=== PATIENT | female | born 1930 | race Caucasian/White ===

== ENCOUNTER 2018-02-19 12:16 | Inpatient (IN) ==
[2018-02-19 13:15] LABS: Basophils % 0.2 %; Eosinophils # 0.1 K/mcL (0.0-0.6); Eosinophils % 1.5 %; Hematocrit 31.3 % (35.3-44.9); Hemoglobin 10.1 g/dL (11.5-15.4); Immature Granulocytes % 0.5 % (0-4); Lymphocytes # 1.4 K/mcL (0.6-4.6); Mean Corpuscular HGB Conc 32.3 g/dL (31.6-35.5); Mean Corpuscular Hemoglobin 30.7 pg (28.0-33.3); Mean Corpuscular Volume 95.1 fL (83.0-100.0); Mean Platelet Volume 11.8 fL (9.4-12.4); Monocytes # 0.6 K/mcL (0.0-1.3); Monocytes % 10.5 %; Neutrophils # 3.8 K/mcL (1.6-8.9); Platelet Count 101 K/mcL (140-400); Red Blood Count 3.29 M/mcL (3.82-4.97); Red Cell Distribution Width 13.9 % (11.5-14.5); Segmented Neutrophils % 63.3 %
[2018-02-19] MEDS ORDERED: Ipratropium/Albuterol Neb 3 ML IH ONE (13:25)
--- NOTE | 2018-02-19 13:26 | Emergency Department Note ---
Disposition Clinical Impression: Intertrochanteric fracture of left femur Qualifiers: Encounter type: initial encounter Fracture type: closed Fracture alignment: nondisplaced Qualified Code(s): S72.145A - Nondisplaced intertrochanteric fracture of left femur, initial encounter for closed fracture Disposition: Admitted As Inpatient Condition: Good Referrals: Maria Eugenia English MD [Primary Care Provider] - Forms: ED Satisfaction Letter Fall HPI - General Chief Complaint: ED Fall Stated Complaint: Fall Time Seen by Provider: 02/19/18 12:24 Source: patient Mode of arrival: ambulatory Limitations: no limitations Nursing Notes Reviewed: Yes Vital Signs Reviewed: Yes - History of Present Illness HPI Narrative: Patient presents today for evaluation of left hip pain after fall. Patient states that her legs just went out from under her and that she landed on her butt. She did not hit her head she did not lose consciousness. Patient is very stoic and does not complain of significant amounts pain but her leg is shortened on the left side. High clinical concern for fever fracture. Neurovascularly intact distally except for being unable to lift leg secondary to pain. No other evidence of injury. Patient will undergo further evaluation for injury and preop labs will be ordered secondary to high clinical concern for fracture. - Related Data Home Medications Medication Instructions Recorded Confirmed Aspirin 81 mg PO DAILY 04/23/15 04/23/15 Citalopram [CeleXA] 10 mg PO DAILY 04/23/15 04/23/15 Diazepam [Valium] 5 mg PO BID 04/23/15 04/23/15 Furosemide [Lasix] 20 mg PO DAILY 04/23/15 04/23/15 Simvastatin [Zocor] 20 mg PO HS 04/23/15 04/23/15 Vitamin D3/Folic Acid [Ortho D 04/23/15 04/23/15 3,775 Unit-1 mg Cap] Previous Rx's Medication Instructions Recorded Budesonide/Formoterol 160/4.5 2 puff IH BIDR 30 Days inhaler 05/05/15 [Symbicort] Ipratropium/Albuterol Neb [Duoneb] 3 ml IH [id number] 30 Days inhsol 05/05/15 Levalbuterol [Xopenex] 1 inh IH Q6HR PRN 30 Days 05/05/15 [email or web address] Metoprolol [Lopressor] 12.5 mg PO BID 30 Days tablet 05/05/15 Nicotine Patch [Nicoderm] 14 mg TD DAILY patch.td24 05/05/15 Allergies Allergy/AdvReac Type Severity Reaction Status Date / Time No Known Allergies Allergy Verified 03/09/15 17:47 Review of Systems: As Per HPI Constitutional: Denies: fever, chills Cardiovascular: Denies: chest pain, palpitations, dyspnea on exertion Respiratory: Denies: cough, dyspnea Gastrointestinal: Denies: abdominal pain, nausea, vomiting Musculoskeletal: Reports: other (left hip pain). 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 Decreased range of motion of left leg secondary to pain. mildly shortened. Skin: No rash, normal skin tone Neuro: Alert and Oriented to person, place, but not time. - General Limitations: altered mental status General appearance: alert Course - Reevaluation(s) Reevaluation #1: Pain controlled. Pt in good spirits. Pt and family understand need for ortho eval and admit. - Consultations Consultation #1: Discussed with Ortho, Dr. Nava. Requests dedicated hip films. Pt will likely have surgery tomorrow. Admit to hospitalist. Consultation #2: Discussed with hospitalist. Pt accepted for admission. Vital Signs Temperature 98.2 F 02/19/18 12:19 Pulse Rate 65 02/19/18 12:19 Respiratory Rate 16 02/19/18 12:19 Blood Pressure 152/73 02/19/18 12:19 O2 Sat by Pulse Oximetry 93 02/19/18 12:19 Temperature 98.2 F 02/19/18 12:19 Pulse Rate 70 02/19/18 13:37 Respiratory Rate 16 02/19/18 13:37 Blood Pressure 174/73 02/19/18 13:37 O2 Sat by Pulse Oximetry 95 02/19/18 13:37 Oxygen Delivery Oxygen Delivery Nasal Cannula Fall - Medical Records Medical records reviewed: Yes I reviewed the patient's medical records. - Lab Data Lab results reviewed: Yes I reviewed the patient's lab results. Result diagrams: 02/19/18 12:56 02/19/18 12:56 Lab Results 02/19/18 02/19/18 Range/Units 12:56 12:56 WBC 6.0 (4.3-11.1) K/mcL RBC 3.29 L (3.82-4.97) M/mcL Hgb 10.1 L (11.5-15.4) g/dL Hct 31.3 L (35.3-44.9) % MCV 95.1 (83.0-100.0) fL MCH 30.7 (28.0-33.3) pg MCHC 32.3 (31.6-35.5) g/dL RDW 13.9 (11.5-14.5) % Plt Count 101 L (140-400) K/mcL MPV 11.8 (9.4-12.4) fL Immature Gran % 0.5 (0-4) % Seg Neutrophils % 63.3 % Lymphocytes % 24.0 % Monocytes % 10.5 % Eosinophils % 1.5 % Basophils % 0.2 % Neutrophils # 3.8 (1.6-8.9) K/mcL Lymphocytes # 1.4 (0.6-4.6) K/mcL Monocytes # 0.6 (0.0-1.3) K/mcL Eosinophils # 0.1 (0.0-0.6) K/mcL Basophils # 0.0 (0.0-0.2) K/mcL Sodium 140 (136-145) mEq/L Potassium 3.5 (3.5-5.1) mEq/L Chloride 99 (98-107) mEq/L Carbon Dioxide 35 H (23-29) mEq/L BUN 17 (8-23) mg/dL Creatinine 1.48 H (0.60-1.20) mg/dL Est GFR ( Amer) 40 L (> 60) Est GFR (Non-Af Amer) 33 L (> 60) BUN/Creatinine Ratio 11 (6-26) Glucose 99 (70-105) mg/dL Calculated Osmolality 292 (280-300) Calcium 8.9 (8.6-10.3) mg/dL Troponin I < 0.03 (< 0.04) ng/mL - Radiology Data Radiology results reviewed: Yes I reviewed the patient's radiology results. - EKG Data EKG attestation: Yes I reviewed and interpreted this EKG. EKG results narrative: EKG shows ventricular rate of 67. DE interval 125. QRS 1 180. QTC 409. No specific T waves found concern for junctional rhythm. Previous EKG shows sinus arrhythmia with rate of 133. Unable to compare for signs of ACS secondary to previous elevated rhythm.
[2018-02-19] MEDS ORDERED: *HR* OxyCODONE Immed Rel 5 MG TABLET PO ONE (13:29)
[2018-02-19 13:36] LABS: BUN/Creatinine Ratio 11 (6-26); Blood Urea Nitrogen 17 mg/dL (8-23); Calcium 8.9 mg/dL (8.6-10.3); Carbon Dioxide 35 mEq/L (23-29); Chloride 99 mEq/L (98-107); Glucose 99 mg/dL (70-105); Osmolality,Calculated 292 (280-300); Potassium 3.5 mEq/L (3.5-5.1); Sodium 140 mEq/L (136-145); eGFR For Non-African Americans 33 (> 60)
[2018-02-19 13:38] LABS: Troponin I < 0.03 ng/mL (< 0.04)
[2018-02-19] MEDS ORDERED: Naloxone 0.4 MG/ML INJ IVP PRN (13:47)
[2018-02-19] MEDS ORDERED: Acetaminophen 325 MG TABLET PO PRN (13:47)
--- NOTE | 2018-02-19 13:54 | Internal Med History&Physical ---
Date of Encounter: 02/19/18 Time of Encounter: 13:30 Internal Medicine - H&P: HPI Chief complaint: fall, left hip pain History of present illness: Ms. King is a 87 year old female with past medical history of COPD, hypertension, diastolic heart failure, presented to the ED after an episode of fall. She states that she was walking in her living room and felt like her left leg was giving in. Afterward, she landed on her left hip but did not hit her head or lose consciousness. No prodromal symptoms including chest pain, palpitations, lightheadedness, or blurring of vision. After a fall, she developed intense left hip pain and was unable to get herself up. No recent illnesses, fevers/chills, nausea/vomiting, abdominal pain, change in bowel habits, or dysuria. The ER, she was afebrile and hemodynamically is stable. Pelvic x-ray revealed left intertrochanteric fracture. Lab work is unremarkable except for creatinine of 1.48 (the last recorded creatinine in 2014 was 0.81). She was given Roxicodone and admitted for further management. Past Med Surg Social Fam HX - Past Medical History Attestation: Yes The following information was validated with the patient. Medical history: aortic aneurysm, arthritis, CHF, COPD, CVA, hypertension, other Additional medical history: Left ankle fracture Psychiatric history: anxiety, depression - Past Surgical History Surgical History: carotid endarterectomy Additional surgical history: broken ankle - Social History Smoking Status: Former smoker Smokeless Tobacco Status: No Alcohol use: none Drug use: none - Family History Mother Adopted: No Hx Family Cardiac Disorders: Yes (HTN) Hx Family Respiratory Disorders: No Hx Family Cancer: Yes Hx Family GI Disorders: No Hx Family Endocrine Disorder: No Hx Family Neuromuscular Disorders: No Hx Family Neurologic Disorders: No Hx Family HEENT Disorders: No Hx Family Autoimmune Disorders: No Internal Medicine - H&P: Meds Aspirin 81 mg PO DAILY 04/23/15 [History] Citalopram [CeleXA] 10 mg PO DAILY 04/23/15 [History] Diazepam [Valium] 5 mg PO BID 04/23/15 [History] Furosemide [Lasix] 20 mg PO DAILY 04/23/15 [History] Simvastatin [Zocor] 20 mg PO HS 04/23/15 [History] Vitamin D3/Folic Acid [Ortho D 3,775 Unit-1 mg Cap] 04/23/15 [History] Budesonide/Formoterol 160/4.5 [Symbicort] 2 puff IH BIDR 30 Days inhaler [Rx] Ipratropium/Albuterol Neb [Duoneb] 3 ml IH [id number] 30 Days inhsol 05/05/15 [Rx] Levalbuterol [Xopenex] 1 inh IH Q6HR PRN 30 Days [email or web address] 05/05/15 [Rx] Metoprolol [Lopressor] 12.5 mg PO BID 30 Days tablet 05/05/15 [Rx] Nicotine Patch [Nicoderm] 14 mg TD DAILY patch.td24 05/05/15 [Rx] 3 Allergy/AdvReac Type Severity Reaction Status Date / Time No Known Allergies Allergy Verified 03/09/15 17:47 All Systems PM: A 10-system review of systems was performed and is negative for pertinent findings except as documented above in the HPI. - Constitutional Vitals: Temp Pulse Resp BP Pulse Ox 98.2 F 70 16 174/73 95 02/19/18 12:19 02/19/18 13:37 02/19/18 13:37 02/19/18 13:37 02/19/18 13:37 Exam: General: Alert and oriented HEENT:EOM, pupils equal, round, and reactive. Cardiovascular:Normal S1 & S2, no murmurs or gallops. No JVD. Pulse regular. Lungs:Normal breath sounds, no wheezes or crackles. Abdomen:Soft, non-tender, no rigidity. Extremities:L LE externally rotated, tender on palpation around hip joint. No hematoma. Neurovascularly intact. Neurological:Normal cognition and motor skills. Skin:Normal color, no rash, no lesions. Pulses:Carotid and radial pulses normal +2. Rest of the physical exam is non-contributory Internal Med - H&P Results - Labs CBC & Chem 7: 02/19/18 12:56 02/19/18 12:56 Labs: Short CBC 02/19/18 Range/Units 12:56 WBC 6.0 (4.3-11.1) K/mcL Hgb 10.1 L (11.5-15.4) g/dL Hct 31.3 L (35.3-44.9) % Plt Count 101 L (140-400) K/mcL Neutrophils # 3.8 (1.6-8.9) K/mcL BMP 02/19/18 12:56 Sodium 140 Potassium 3.5 Chloride 99 Carbon Dioxide 35 H BUN 17 Creatinine 1.48 H Glucose 99 Calcium 8.9 Cardiac Enzymes 02/19/18 Range/Units 12:56 Troponin I < 0.03 (< 0.04) ng/mL - Impressions ITS Impressions Chest X-Ray 02/19/18 12:24 IMPRESSION: Limited portable chest x-ray. Possible new nodule of the right lung apex. Follow-up PA and lateral view chest x-ray versus chest CT is recommended. Pulmonary venous congestion without overt edema. D/ / Navarro Corey MD / Navarro Corey MD Interpreting Provider: Navarro Corey MD Head CT 02/19/18 12:24 IMPRESSION: No acute intracranial abnormality. Atrophy and small-vessel disease ischemic changes appropriate for age. D/ / Doris Hinton MD / Doris Hinton MD Interpreting Provider: Doris Hinton MD Pelvis X-Ray 02/19/18 12:24 IMPRESSION: Acute, intertrochanteric fracture of the left hip. D/ / Gurdeep Flores MD / Gurdeep Flores MD Interpreting Provider: Gurdeep Flores MD - Assessment and plan (1) Fracture, intertrochanteric, left femur Current Visit: Yes Status: Acute Assessment and plan: Likely due to a mechanical fall but will await for CT head results Nothing by mouth after midnight, for surgery tomorrow per ortho Qualifiers: Encounter type: initial encounter Fracture type: closed Fracture alignment: nondisplaced Qualified Code(s): S72.145A - Nondisplaced intertrochanteric fracture of left femur, initial encounter for closed fracture (2) CKD (chronic kidney disease) stage 3, GFR 30-59 ml/min Current Visit: Yes Status: Suspected Assessment and plan: Creatinine is 1.48, last recorded creatinine in April 2015 was 0.8 Suspect progression of CKD rather than SINDHU but will keep her on low rate of IVF overnight monitor Cr (3) Heart failure with preserved ejection fraction Current Visit: Yes Status: Acute Assessment and plan: not in decompensation, hold off on lasix in case her Cr elevation is due to SINDHU (4) COPD (chronic obstructive pulmonary disease) Current Visit: No Status: Chronic Assessment and plan: Asymptomatic and stable, resume home meds and inhalers. Qualifiers: COPD type: chronic bronchitis Chronic bronchitis type: unspecified Qualified Code(s): J42 - Unspecified chronic bronchitis (5) DVT prophylaxis Current Visit: No Status: Acute Assessment and plan: Subcutaneous heparin - Time Spent With Patient Total time spent is greater than 50% in coordination of care (as documented) at patient's floor/unit and/or counseling patient:
[2018-02-19] MEDS: traMADol 50 MG TABLET PO PRN ×2 (16:24→23:22)
[2018-02-19] MEDS: 0.9 % Sodium Chloride 1,000 ML IVC SCH (16:25)
--- NOTE | 2018-02-19 16:57 | Orthopedic Consult Note ---
Date of Encounter: 02/19/18 Time of Encounter: 16:53 Assessment and Plan (1) Fracture of left distal radius Current Visit: Yes Status: Acute Non operative management for the left distal radius fracture. Placed in volar splint until followup. No lifting with the left arm or weight bearing through the wrist. Qualifiers: Encounter type: initial encounter Fracture type: closed Fracture morphology: unspecified fracture morphology Qualified Code(s): S52.502A - Unspecified fracture of the lower end of left radius, initial encounter for closed fracture (2) Fracture, intertrochanteric, left femur Current Visit: Yes Status: Acute The diagnosis and treatment recommendations were discussed with the patient and her family. She has a intertrochanteric fracture of the left hip and to allow her opportunity for early mobility with therapy, and for pain control and to decrease the risks associated with immobility, surgical treatment was recommended. After discussing the pros and cons of treatment options including non-operative and operative intervention, the patient's daughter who is POA has consented for left hip cephalomedullary nail to be performed. The risks and benefits of the procedure were fully explained in detail, including but not limited to the risk of infection, neurovascular injury, continued pain or stiffness, failure of surgery, reinjury, or need for additional surgery, DVT, PE , general risks of anesthesia and loss of limb or life. No guarantees were given or implied and all questions were answered. The patient's family understands all the risks and does wish to proceed with written consent. NPO at midnight for surgery. Appreciate medical management from primary team. Qualifiers: Encounter type: initial encounter Fracture type: closed Fracture alignment: nondisplaced Qualified Code(s): S72.145A - Nondisplaced intertrochanteric fracture of left femur, initial encounter for closed fracture History of Present Illness HPI: Ms. King is a 87 year old female with past medical history of COPD, hypertension, diastolic heart failure, presented to the ED fall this AM. She was walking at home and felt her leg give out, then land on her left hip and left wrist. Denies hitting her head or loss of consciousness. No prodromal symptoms including chest pain, palpitations, lightheadedness, or blurring of vision. She was brought to the ED and diagnosed with a left hip intertrochanteric fracture and minimally displaced left distal radius fracture. Orthopedics was consulted for fracture management. Denies CP, SOB, fevers, chills or any recent illnesses. Denies pain other than her left wrist and hip. No numbness or tingling. She has a walker but does not always use it. Past Med Surg Social Fam HX - Past Medical History Medical history: aortic aneurysm, arthritis, CHF, COPD, CVA, hypertension, other Additional medical history: Left ankle fracture Psychiatric history: anxiety, depression - Past Surgical History Surgical History: carotid endarterectomy Additional surgical history: broken ankle - Social History Smoking Status: Former smoker Smokeless Tobacco Status: No Alcohol use: none Drug use: none - Family History Mother Adopted: No Hx Family Cardiac Disorders: Yes (HTN) Hx Family Respiratory Disorders: No Hx Family Cancer: Yes Hx Family GI Disorders: No Hx Family Endocrine Disorder: No Hx Family Neuromuscular Disorders: No Hx Family Neurologic Disorders: No Hx Family HEENT Disorders: No Hx Family Autoimmune Disorders: No Medications and Allergies Aspirin Enteric Coated [Aspirin EC] 81 mg PO DAILY 02/19/18 [History] Citalopram Hydrobromide [Citalopram HBr] 10 mg PO DAILY 02/19/18 [History] Ergocalciferol (VITAMIN D2) [Vitamin D] 800 unit PO BID 02/19/18 [History] Furosemide [Lasix] 20 mg PO DAILY 02/19/18 [History] Lisinopril [Zestril] 20 mg PO DAILY 02/19/18 [History] Simvastatin [Zocor] 20 mg PO HS 02/19/18 [History] Vit A/C/E AC/Znox/Cupric Oxide [Eye Vitamin-Minerals Tablet] 1 tab PO DAILY [History] amLODIPine [Norvasc] 5 mg PO DAILY 02/19/18 [History] diazePAM [Valium] 1 - 2 mg PO DAILY PRN 02/19/18 [History] 3 Allergy/AdvReac Type Severity Reaction Status Date / Time No Known Allergies Allergy Verified 02/19/18 15:50 All Systems Reviewed: The remainder of the systems were reviewed and are negative except as noted in HPI Physical Exam - Constitutional Vitals: Temp Pulse Resp BP Pulse Ox 97.8 F 70 18 132/76 90 02/19/18 15:48 02/19/18 15:48 02/19/18 15:48 02/19/18 15:48 02/19/18 16:36 Exam: Consult Exam: Constitutional -Vitals reviewed -The patient is well developed and well nourished. -Mood is pleasant. -The patient is well groomed. Psychiatric -The patient alert and oriented to person and place. Respiratory: -Respiratory effort normal Abdomen: -Soft abdomen -Non tender -Non distended: Left upper extremity: -No deformities. The overlying skin is intact with overlying ecchymosis. -Tender to palpation over distal radius -No significant pain with passive motion of the shoulder, elbow, able to flex fingers. -Able to make an "OK" sign, cross the index and long fingers, and extend the thumb. -Sensation grossly intact to light touch throughout the median, radial, and ulnar distributions. -Radial pulse is present; Fingers have good capillary refill. Right upper extremity: -No deformities. The overlying skin is intact. No obvious signs of acute trauma. -No tenderness to palpation throughout. -No significant pain with passive motion of the shoulder, elbow, wrist, and fingers within the limits of the bed. -Able to make an "OK" sign, cross the index and long fingers, and extend the thumb. -Sensation grossly intact to light touch throughout the median, radial, and ulnar distributions. -Radial pulse is present; Fingers have good capillary refill. Left lower extremity: -The extremity is shortened and externally rotated. The overlying skin is intact. -There is tenderness in the groin region as well as the proximal lateral thigh. -I did not range the hip due to the known fracture. -No tenderness along the distal thigh, leg, ankle, foot, or toes. -Able to dorsiflex and plantarflex the ankle and toes. -Sensation is grossly intact to light touch throughout the sural, saphenous, superficial peroneal, and deep peroneal distributions. -Toes have good capillary refill. Right lower extremity: -No deformities. The overlying skin is intact. No obvious signs of acute trauma. -No tenderness to palpation throughout. -No pain with passive motion of the hip, knee, ankle, and toes within the limits of the bed. -No pain with axial loading of the thigh. -Able to dorsiflex and plantarflex the ankle and toes. -Sensation is grossly intact to light touch throughout the sural, saphenous, superficial peroneal, and deep peroneal distributions. -Toes have good capillary refill. Results - Labs Result Diagrams: 02/19/18 12:56 02/19/18 12:56 Labs: Abnormal lab results RBC 3.29 M/mcL (3.82-4.97) L 02/19/18 12:56 Hgb 10.1 g/dL (11.5-15.4) L 02/19/18 12:56 Hct 31.3 % (35.3-44.9) L 02/19/18 12:56 Plt Count 101 K/mcL (140-400) L 02/19/18 12:56 Carbon Dioxide 35 mEq/L (23-29) H 02/19/18 12:56 Creatinine 1.48 mg/dL (0.60-1.20) H 02/19/18 12:56 Est GFR ( Amer) 40 (> 60) L 02/19/18 12:56 Est GFR (Non-Af Amer) 33 (> 60) L 02/19/18 12:56 All other labs normal. - Diagnostic results Wrist/Hand x-ray: report reviewed, image reviewed (Minimally displaced transverse left distal radius fracture) Hip x-ray: report reviewed, image reviewed (Displaced left hip intertrochanteric fracture with significant underlying osteopenia) Consult Discharge Plan - Plan Referrals: Maria Eugenia English MD [Primary Care Provider] -
[2018-02-19] MEDS: *HR* Heparin 5,000 UNIT/ML VIAL SQ SCH (17:25)
[2018-02-19] MEDS: *HR* OxyCODONE Immed Rel 5 MG TABLET PO PRN (17:27)
--- NOTE | 2018-02-19 19:28 | Anesthesia Evaluation PreOp ---
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, Other (anxiety) Other Medical History: Renal (elevated creatinine) Anesthesia History: No Prior Anesthetic Complications, Past Anesthesia Alcohol Use: none Drug use: none Medications and Allergies Aspirin Enteric Coated [Aspirin EC] 81 mg PO DAILY 02/19/18 [History] Citalopram Hydrobromide [Citalopram HBr] 10 mg PO DAILY 02/19/18 [History] Ergocalciferol (VITAMIN D2) [Vitamin D] 800 unit PO BID 02/19/18 [History] Furosemide [Lasix] 20 mg PO DAILY 02/19/18 [History] Lisinopril [Zestril] 20 mg PO DAILY 02/19/18 [History] Simvastatin [Zocor] 20 mg PO HS 02/19/18 [History] Vit A/C/E AC/Znox/Cupric Oxide [Eye Vitamin-Minerals Tablet] 1 tab PO DAILY [History] amLODIPine [Norvasc] 5 mg PO DAILY 02/19/18 [History] diazePAM [Valium] 1 - 2 mg PO DAILY PRN 02/19/18 [History] 3 Allergy/AdvReac Type Severity Reaction Status Date / Time No Known Allergies Allergy Verified 02/19/18 15:50 - Meds/Allergy Pre-op Review Medications Reviewed: Yes Allergies Reviewed: Yes Beta Blockers on Current Med List: No Anesthesia Results - Labs 02/19/18 12:56 02/19/18 12:56 - Imaging EKG: pending Additional studies: CT abdomen and pelvis: MPRESSION: 1. Stable infrarenal abdominal aortic aneurysm 5 x 5.1 cm. 2. Cholelithiasis. D/ / 03/11/2017 14:32:33 Manpreet Chambers MD / [facility] Interpreting Provider: Manpreet Chambers MD <Christine Neff - Last Filed: 02/20/18 07:14> Date of Encounter: 02/20/18 Anesthesia Results - Labs 02/20/18 00:32 02/20/18 00:32 Laboratory Results WBC 8.3 K/mcL (4.3-11.1) 02/20/18 00:32 RBC 2.95 M/mcL (3.82-4.97) L 02/20/18 00:32 Hgb 8.7 g/dL (11.5-15.4) L 02/20/18 00:32 Hct 27.9 % (35.3-44.9) L 02/20/18 00:32 MCV 94.6 fL (83.0-100.0) 02/20/18 00:32 MCH 29.5 pg (28.0-33.3) 02/20/18 00:32 MCHC 31.2 g/dL (31.6-35.5) L 02/20/18 00:32 RDW 13.9 % (11.5-14.5) 02/20/18 00:32 Plt Count 97 K/mcL (140-400) L 02/20/18 00:32 MPV 12.5 fL (9.4-12.4) H 02/20/18 00:32 Immature Gran % 0.5 % (0-4) 02/20/18 00:32 Seg Neutrophils % 81.2 % 02/20/18 00:32 Lymphocytes % 9.6 % 02/20/18 00:32 Monocytes % 8.4 % 02/20/18 00:32 Eosinophils % 0.1 % 02/20/18 00:32 Basophils % 0.2 % 02/20/18 00:32 Neutrophils # 6.7 K/mcL (1.6-8.9) 02/20/18 00:32 Lymphocytes # 0.8 K/mcL (0.6-4.6) 02/20/18 00:32 Monocytes # 0.7 K/mcL (0.0-1.3) 02/20/18 00:32 Eosinophils # 0.0 K/mcL (0.0-0.6) 02/20/18 00:32 Basophils # 0.0 K/mcL (0.0-0.2) 02/20/18 00:32 Immature Plt Fraction 12.5 % (1.1-6.1) H 02/20/18 00:32 PT 13.6 Seconds (9.4-12.1) H 02/20/18 00:32 INR 1.2 02/20/18 00:32 Sodium 135 mEq/L (136-145) L 02/20/18 00:32 Potassium 3.8 mEq/L (3.5-5.1) 02/20/18 00:32 Chloride 94 mEq/L (98-107) L 02/20/18 00:32 Carbon Dioxide 31 mEq/L (23-29) H 02/20/18 00:32 BUN 18 mg/dL (8-23) 02/20/18 00:32 Creatinine 1.45 mg/dL (0.60-1.20) H 02/20/18 00:32 Est GFR ( Amer) 41 (> 60) L 02/20/18 00:32 Est GFR (Non-Af Amer) 34 (> 60) L 02/20/18 00:32 BUN/Creatinine Ratio 12 (6-26) 02/20/18 00:32 Glucose 153 mg/dL (70-105) H 02/20/18 00:32 Calculated Osmolality 285 (280-300) 02/20/18 00:32 Calcium 8.5 mg/dL (8.6-10.3) L 02/20/18 00:32 Troponin I < 0.03 ng/mL (< 0.04) 02/19/18 12:56 Impressions Chest X-Ray 02/19/18 12:24 IMPRESSION: Limited portable chest x-ray. Possible new nodule of the right lung apex. Follow-up PA and lateral view chest x-ray versus chest CT is recommended. Pulmonary venous congestion without overt edema. D/ / Navarro Corey MD / Navarro Corey MD Interpreting Provider: Navarro Corey MD Head CT 02/19/18 12:24 IMPRESSION: No acute intracranial abnormality. Atrophy and small-vessel disease ischemic changes appropriate for age. D/ / Doris Hinton MD / Doris Hinton MD Interpreting Provider: Doris Hinton MD Pelvis X-Ray 02/19/18 12:24 IMPRESSION: Acute, intertrochanteric fracture of the left hip. D/ / Gurdeep Flores MD / Gurdeep Flores MD Interpreting Provider: Gurdeep Flores MD Wrist X-Ray 02/19/18 13:26 IMPRESSION: Acute fracture of the distal radius. D/ / Navarro Corey MD / Navarro Corey MD Interpreting Provider: Navarro Corey MD Hip X-Ray 02/19/18 13:38 IMPRESSION: Acute mildly displaced left intertrochanteric femoral fracture. D/ / Mathew Burgess MD / Mathew Burgess MD Interpreting Provider: Mathew Burgess MD Anesthesia Exam Vital Signs Temp Pulse Resp BP Pulse Ox 02/20/18 06:42 98.4 F 83 17 134/79 94 02/20/18 03:31 98.5 F 100 20 163/63 86 02/19/18 23:17 98.9 F 90 17 146/65 91 02/19/18 19:58 98.3 F 82 16 135/73 95 02/19/18 16:36 90 02/19/18 15:48 97.8 F 70 18 132/76 90 02/19/18 14:20 16 148/82 02/19/18 13:50 18 95 02/19/18 13:37 70 16 174/73 95 02/19/18 12:19 98.2 F 65 16 152/73 93 Intake and Output 02/19/18 02/19/18 02/20/18 15:59 23:59 07:59 Intake Total 1000 / 1000 Output Total 350 / 350 300 / 300 Balance -350 / -350 700 / 700 Intake: IV Fluids 1000 / 1000 0.9 % Sodium Chloride 1,000 ML 1000 / 1000 @ 75 mls/hr IVC .[id number] DANIS Rx #:[id number] Output: Catheter 350 / 350 300 / 300 Other: Meal Dinner Percent of Meal Consumed 60% Weight 76.657 kg 75.8 kg Patient Weight 02/20/18 23:59 Weight 75.8 kg Height: 5'4" Weight: 167# BMI = 28.7 NPO (# of Hours): MNoc Pain Scale Used: Numeric (1 - 10) - HEENT Pupil (Motor): Pupils equal, EOMI Mallampati: II Teeth: Edentulous Oral Opening: Greater than 3 - 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 Oscar Grover MD
[2018-02-20 01:27] LABS: Calcium 8.5 mg/dL (8.6-10.3); Potassium 3.8 mEq/L (3.5-5.1)
[2018-02-20 01:41] LABS: Monocytes % 8.4 %; Red Blood Count 2.95 M/mcL (3.82-4.97)
[2018-02-20 01:43] LABS: Basophils % 0.2 %; Eosinophils % 0.1 %; Hematocrit 27.9 % (35.3-44.9); Hemoglobin 8.7 g/dL (11.5-15.4); Immature Granulocytes % 0.5 % (0-4); Immature Platelets 12.5 % (1.1-6.1); Lymphocytes # 0.8 K/mcL (0.6-4.6); Lymphocytes % 9.6 %; Mean Corpuscular HGB Conc 31.2 g/dL (31.6-35.5); Mean Corpuscular Hemoglobin 29.5 pg (28.0-33.3); Mean Corpuscular Volume 94.6 fL (83.0-100.0); Mean Platelet Volume 12.5 fL (9.4-12.4); Monocytes # 0.7 K/mcL (0.0-1.3); Neutrophils # 6.7 K/mcL (1.6-8.9); Red Cell Distribution Width 13.9 % (11.5-14.5); Segmented Neutrophils % 81.2 %
[2018-02-20 01:53] LABS: INR 1.2; Prothrombin Time 13.6 Seconds (9.4-12.1)
[2018-02-20 02:01] LABS: Platelet Count 97 K/mcL (140-400)
[2018-02-20] MEDS: *HR* OxyCODONE Immed Rel 5 MG TABLET PO PRN (03:48)
[2018-02-20] MEDS: *HR* Heparin 5,000 UNIT/ML VIAL SQ SCH ×2 (05:52→18:47)
[2018-02-20] MEDS: 0.9 % Sodium Chloride 1,000 ML IVC SCH (06:32)
[2018-02-20] MEDS ORDERED: Albuterol 2.5 MG/3 ML NEBULIZER ONE (07:36)
[2018-02-20] MEDS ORDERED: Dexamethasone 4 MG/ML VIAL ONE (07:41)
[2018-02-20] MEDS ORDERED: Lidocaine -MPF 2% 2 ML VIAL ONE (07:41)
[2018-02-20] MEDS ORDERED: Ondansetron 4 MG/2 ML VIAL ONE (07:41)
[2018-02-20] MEDS ORDERED: *HR* Succinylcholine 200 MG/10 ML VIAL IVP ONE (07:41)
[2018-02-20] MEDS ORDERED: Lidocaine -MPF 4% 5 ML AMPUL ONE (07:42)
[2018-02-20] MEDS ORDERED: *HR* FentaNYL (PF) 100 MCG/2 ML VIAL ONE (07:42)
[2018-02-20] MEDS ORDERED: *HR* Propofol 200 MG/20 ML VIAL IVP ONE (07:42)
[2018-02-20] MEDS ORDERED: *HR* Morphine Sulfate/PF 10 MG/10 ML AMPUL ONE (07:43)
[2018-02-20] MEDS ORDERED: Lidocaine -MPF 1% 5 ML AMPUL ONE (07:43)
[2018-02-20] MEDS ORDERED: Ketamine *HR* 500 MG/10 ML MDV ONE (07:48)
[2018-02-20] MEDS ORDERED: *HR* PHENYLEPHRINE 1,000 MCG/10 ML SYRINGE IVP ONE ×2 (07:49→08:52)
[2018-02-20] MEDS ORDERED: Propofol 500 MG/50 ML INFUS..BTL ONE (08:36)
[2018-02-20] MEDS ORDERED: Acetaminophen IV 1,000 MG/100 ML INFUS..BTL ONE (08:56)
--- NOTE | 2018-02-20 09:43 | Anesthesia Procedures ---
Date of Encounter: 02/20/18 Time of Encounter: 08:05 Procedures: Anesthesia - Epidural/Spinal Patient ID/Chart reviewed: Yes Patient examined: Yes Consent Obtained: Yes Supplemental Oxygen: Nasal Cannula Supplemental Oxygen Rate (L/min): 3 Sedation: Versed (mg): 0 (30mg ketamine in 3 doses) Site Prep: Aseptic Technique, Sterile prep and drape, 0.5% Chlorhexidine/Alcohol Patient position: right lateral decubitus Local Anesthetic: Lidocaine 1% Amount of Local Anesthetic used: 3 Interspace Used: L3-L4 Loss of Resistance (JUNI): No Blood: No CSF: Yes Paresthesia: No Procedure: vss though out procedure, 2 level attempts to clear CSF per Gaston CHOI and Dr. Neff, patient tolerated well, meds inj 0.5% 2ml and 250mcg of duramorph all PF.
--- NOTE | 2018-02-20 09:44 | Physician Discharge Referral ---
- Diagnosis (1) Fracture of left distal radius Status: Acute (2) Fracture, intertrochanteric, left femur Status: Acute Prognosis: Fair - Transfer Medications Home Medications: Aspirin Enteric Coated [Aspirin EC] 81 mg PO DAILY 02/19/18 [History] Citalopram Hydrobromide [Citalopram HBr] 10 mg PO DAILY 02/19/18 [History] Ergocalciferol (VITAMIN D2) [Vitamin D] 800 unit PO BID 02/19/18 [History] Furosemide [Lasix] 20 mg PO DAILY 02/19/18 [History] Lisinopril [Zestril] 20 mg PO DAILY 02/19/18 [History] Simvastatin [Zocor] 20 mg PO HS 02/19/18 [History] Vit A/C/E AC/Znox/Cupric Oxide [Eye Vitamin-Minerals Tablet] 1 tab PO DAILY [History] amLODIPine [Norvasc] 5 mg PO DAILY 02/19/18 [History] diazePAM [Valium] 1 - 2 mg PO DAILY PRN 02/19/18 [History] Allergies/Adverse Reactions: 3 Allergy/AdvReac Type Severity Reaction Status Date / Time No Known Allergies Allergy Verified 02/19/18 15:50 - Respiratory Orders Smoking Cessation: Smoking cessation has been advised. For more information, call the [employer] Tobacco Quit Line at 2-046-MWRG-NOW. - Mobility Orders Ambulate - Rehabiliation Orders Rehab Potential: Fair Rehab Orders: Evaluation for Physical Therapy, Evaluation for Occupational Therapy Other: JAIL DISCHARGE INSTRUCTIONS Dr. Nava PROCEDURE PERFORMED Reduction and fixation of left hip. Incision care -Keep clear dressing in place. If dressing becomes saturated, may perform daily dressing changes to the left hip with dry gauze and either paper tape or medipore tape. -Avoid soaking wound in water (no hot tubs, bathtubs, swimming pools). -May shower after 2 weeks from surgery date. Carefully wash incision with soap and water. Gently pat it dry. Don't rub the incision, or apply creams or lotions. Sit on a shower stool when showering to keep from falling. Weight bearing status -Weightbearing as tolerated to the bilateral lower extremities. Non weight bearing through the left wrist due ot distal radius fracture. May weight bear through the elbow. Medications -Pain medication per the discharging medical doctor -Enteric coated aspirin 325 mg by mouth twice per day for 28 days from the date of the surgery. [-Resume 50,000 units of vitamin D2 weekly and 1200 mg of calcium supplementation per day.] Other -Knee high TERESA hose 23 hours per day -Consult physical and occupational therapy for mobilization. -Up to chair with assistance at least twice per day. -Follow up with your primary care physician to discuss testing for bone mineral density. Follow-Up -Follow-up with Dr. Nava in office in 2 weeks from the surgery date for a post-operative evaluation. -Call the office at [phone] to schedule or confirm your appointment. -Follow up with your primary care physician to discuss testing for bone mineral density. - Diet Orders Regular CERTIFICATION: I certify that the transfer of the above named patient to an Extended Care Facility is necessary for the continuing treatment of the diagnosis listed. The above information is true and accurate reflection of patient's current condition. Confidential - Redisclosure prohibited without a patient's written consent.
--- NOTE | 2018-02-20 09:50 | Orthopedic Operative Note ---
Date of procedure: 02/20/18 Procedure: Procedure: Left hip cephalomedullary nail Preoperative diagnosis: Left hip intertrochanteric fracture Postoperative diagnosis: Same Surgeon: Jason Nava MD Anesthesia: General EBL: 50 cc Complications: None Components used: Synthes TFNA 12mm/130 degree short nail, 95 mm helical blade, 5.0 mm locking screw Indications: This is an 87 yo female who sustained a fall yesterday at home onto her left side, causing her left hip and wrist pain. She was brought to the emergency department and imaging confirmed a left hip intertrochanteric fracture and a minimally displaced left distal radius fracture. After discussing the procedure at length, the patient and her family elected for operative management with a cephalomedullary nail of the left hip and nonoperative management of the left distal radius. The risks and benefits the procedure were fully explained. Those risks included but are not limited to, infection, neurovascular injury, continued pain, arthritis, stiffness, further injury, need for further surgery, DVT, PE, loss of limb, and loss of life. Patient understood all these risks and wished to proceed. Informed consent was obtained. No guarantees were stated or implied. Operative report: The patient was assessed and cleared by the medical group prior to surgery. Patient was brought to the holding area. Spinal anesthetic was administered per anesthesia. Left lower extremity was marked, the patient was taken to the operating room and transferred to the hospital bed. The patient's head, neck and airway were protected by anesthesia throughout the case. The patient was then transferred to the fracture table and placed in supine position with a well padded perineal post. All bony prominences were well-padded. The left wrist had been splinted and care was taken to protect it when positioning the left arm. Left leg was attached to traction device and the fracture bed. The right leg was then placed in a well leg snider and positioned out of the way of fluoroscopy. We then utilized fracture table to reduce the fracture and obtained fluoroscopic images in AP and lateral planes confirming alignment. The left lower extremity was then prepped and draped in the normal sterile orthopedic fashion. Preoperative antibiotics were given prior to incision. A surgical time out protocol was then performed. We then made an incision just proximal to the greater trochanter. We dissected down through the IT band sharply. We were then able to palpate the greater trochanter and we placed a guidepin in the appropriate starting position on the greater trochanter. We advanced the guidepin into the proximal femur and then confirmed the position in both AP and lateral planes. After confirming acceptable pin placement at the tip of the greater trochanter, we advanced the pin to the level of the lesser trochanter. We then utilized an entry reamer over the pin to open up the canal. We then placed a size 12 mm 130 degree Synthes TFNA short nail over the guide pin. We manually advanced the nail to the appropriate depth taking care to avoid any further injury to the bone. When the nail was at the appropriate depth we used the outrigger to place a guidepin for the compression blade into the femoral head. We confirmed central location on the pin on both AP and lateral x-rays. We then overdrilled the pin and placed the 95 mm blade. We then locked the nail proximally and utilized the outrigger for compression across the fracture site. After confirming acceptable alignment of the fracture, we then used the outrigger to place a distal locking screw from lateral to medial. At this point we obtained final fluoroscopic images of the left hip and femur in both AP and lateral planes. We then thoroughly irrigated the wounds and closed the IT band with 0 Vicryl. Subcutaneous tissue was closed with 2-0 strata fix, skin was closed with 3-0 strata fix and then zip line. Sterile dressing was placed, the patient was woken by anesthesia and taken transferred to PACU in stable condition. Patient tolerated procedure well with no issues. Postop plan: Patient will be transferred back to the floor and will be weight- bearing as tolerated of bilateral lower extremities with physical therapy postoperatively. She is nonweight bearing through the left wrist due to the distal radius fracture. Patient is on subq heparin for DVT prophylaxis and will continue this per the hospitalist group. Was there an assistant director of public works present: No Estimated blood loss (cc): 50
--- NOTE | 2018-02-20 10:26 | Anesthesia Evaluation Post Op ---
Date of Encounter: 02/20/18 Time of Encounter: 10:22 - Vital Signs Vital Signs: Vital Signs/O2 Sat/Glucose, Most Current Temp Pulse Resp BP Pulse Ox 02/20/18 10:11 100.1 F H 67 16 96/54 96 02/20/18 10:01 100.1 F H 69 16 95/55 96 02/20/18 09:51 71 16 108/78 93 02/20/18 09:41 69 18 119/93 95 02/20/18 09:31 100.2 F H 82 18 122/60 89 02/20/18 07:59 93 138/65 93 02/20/18 06:42 98.4 F 83 17 134/79 94 - Lungs Lungs: Clear Ascult./Percussion - Airway Airway: Non-obstructed - Cardiovascular Regular Rate - Mental Status Mental Status: Alert & Oriented, Answers Appropriately - Pain Pain Scale: 0 Pain Scale used: Numeric (1 - 10) - Nausea Vomiting Nausea Vomiting: Not Present - Hydration Hydration: Tolerates oral liquids, Milner catheter - Discharge PostOp Status: Transfer Patient to floor Anes Supervising Prov Stmt: PT seen/evaluated, VSS And pt has met criteria for discharge to floor. - MD Lenore
[2018-02-20] MEDS ORDERED: Naloxone 0.4 MG/ML INJ IVP PRN ×2 (10:29)
[2018-02-20] MEDS ORDERED: 0.9 % Sodium Chloride 1,000 ML IVC SCH (10:29)
[2018-02-20] MEDS ORDERED: Acetaminophen 325 MG TABLET PO PRN (10:29)
--- NOTE | 2018-02-20 16:39 | Internal Med Progress Note ---
Date of Encounter: 02/20/18 Time of Encounter: 16:25 - Assessment and plan (1) Fracture, intertrochanteric, left femur Current Visit: Yes Status: Acute Assessment and plan: Status post left hip cephalomedullary nail procedure POD#0 -Continue orthopedic care -Physical therapy -Analgesia -Incentive spirometer Also with distal left radial fracture -In volar splint -orthopedic care -Nonoperative management Qualifiers: Encounter type: initial encounter Fracture type: closed Fracture alignment: nondisplaced Qualified Code(s): S72.145A - Nondisplaced intertrochanteric fracture of left femur, initial encounter for closed fracture (2) CKD (chronic kidney disease) stage 3, GFR 30-59 ml/min Current Visit: Yes Status: Suspected Assessment and plan: Acute kidney injury stage III chronic kidney disease -Could be due to progression of chronic kidney disease versus likely an intravascular volume depletion 2/2 decreased PO intake (per family) with the addition of frequent NSAID Lasix and MOISÉS inhibitor use. -discontinue Lasix -discontinue zestril -Continue IV fluids (last EF 60-65%) -AM BMP (3) COPD (chronic obstructive pulmonary disease) Current Visit: No Status: Chronic Assessment and plan: -Continue home medications -Stable Qualifiers: COPD type: chronic bronchitis Chronic bronchitis type: unspecified Qualified Code(s): J42 - Unspecified chronic bronchitis (4) DVT prophylaxis Current Visit: No Status: Acute Assessment and plan: Subcutaneous heparin (5) Heart failure with preserved ejection fraction Current Visit: Yes Status: Acute Assessment and plan: Chronic compensated congestive heart failure with preserved ejection fraction/ diastolic dysfunction -We will monitor for now -discontinue Lasix secondary to kidney injury (6) Thrombocytopenia Current Visit: Yes Status: Acute Assessment and plan: Chronic stable thrombocythemia will monitor- - Time Spent With Patient Total time spent is greater than 50% in coordination of care (as documented) at patient's floor/unit and/or counseling patient: 25 - 35 minutes - Subjective Interval history: Patient seen and examined at bedside with family. Patient had no acute events overnight. Patient doing well today post surgery. Patient denies any complaints. Patient denies any chest pain, shortness breath, nausea, vomiting, diarrhea. Patient is afebrile. - Constitutional Vitals: Temp Pulse Resp BP Pulse Ox 98.3 F 62 17 105/60 89 02/20/18 15:53 07/28/18 15:53 02/20/18 15:53 02/20/18 15:53 02/20/18 15:53 Exam: Constitutional: No acute distress, Alert Psych: AAO x 3 Neck: supple, no JVD Cardio: regular rate and rhythm, +s1s2, no murmurs/rubs/gallops Resp: clear to ascultation bilaterally, no wheezes/rales/ronchi Abd: soft, non tender/non distended, positive bowel sounds, no gaurding/reboud/ ridgitity Extremities: Left hip incision clean dry and intact, calfs soft, left wrist wrapped in Moisés bandage Neuro: no focal deficits appreciated Lymph: no cervical/supraclavicular adenopahty apprecitated Internal Medicine: Result - Labs CBC & Chem 7: 02/20/18 00:32 02/20/18 00:32 Labs: Short CBC 02/20/18 Range/Units 00:32 WBC 8.3 (4.3-11.1) K/mcL Hgb 8.7 L (11.5-15.4) g/dL Hct 27.9 L (35.3-44.9) % Plt Count 97 L (140-400) K/mcL Neutrophils # 6.7 (1.6-8.9) K/mcL BMP 02/20/18 00:32 Sodium 135 L Potassium 3.8 Chloride 94 L Carbon Dioxide 31 H BUN 18 Creatinine 1.45 H Glucose 153 H Calcium 8.5 L - ABG Interpretation ABG results: PT/INR, D-dimer PT 13.6 Seconds (9.4-12.1) H 02/20/18 00:32 - Impressions Impressions Fluoroscopy 02/20/18 00:00 IMPRESSION: Intraprocedural fluoroscopic spot images as above. See separate procedure report for more information. D/ / Navarro Bullock MD / Navarro Bullock MD Interpreting Provider: Navarro Bullock MD Hip X-Ray 02/20/18 09:34 IMPRESSION: Postoperative left hip internal fixation with improved alignment of fracture fragments. D/ / 02/20/2018 11:20:03 Rd Stiles MD / [facility]yl[facility] Interpreting Provider: Rd Stiles MD - VTE Documentation of Mechanical Device: Intermittent pneumatic compression device Consult Discharge Plan - Plan Referrals: Maria Eugenia English MD [Primary Care Provider] -
[2018-02-21] MEDS: *HR* Heparin 5,000 UNIT/ML VIAL SQ SCH ×2 (05:23→16:59)
[2018-02-21 05:51] LABS: Basophils % 0.1 %; Eosinophils % 0.7 %; Hemoglobin 8.2 g/dL (11.5-15.4)
[2018-02-21 05:52] LABS: Eosinophils # 0.1 K/mcL (0.0-0.6); Hematocrit 25.6 % (35.3-44.9); Immature Granulocytes % 0.7 % (0-4); Lymphocytes # 0.9 K/mcL (0.6-4.6); Lymphocytes % 8.8 %; Mean Corpuscular Hemoglobin 30.9 pg (28.0-33.3); Mean Corpuscular Volume 96.6 fL (83.0-100.0); Monocytes % 9.6 %; Red Blood Count 2.65 M/mcL (3.82-4.97); Red Cell Distribution Width 14.3 % (11.5-14.5); Segmented Neutrophils % 80.1 %
[2018-02-21 05:56] LABS: Platelet Count 77 K/mcL (140-400)
[2018-02-21 06:09] LABS: Calcium 8.1 mg/dL (8.6-10.3); Potassium 3.8 mEq/L (3.5-5.1)
[2018-02-21] MEDS ORDERED: Furosemide 20 MG TABLET PO SCH (09:00)
[2018-02-21] MEDS ORDERED: Lisinopril 20 MG TABLET PO SCH (09:00)
--- NOTE | 2018-02-21 09:39 | Orthopedics Progress Note ---
Date of Encounter: 02/21/18 Time of Encounter: 09:36 - Assessment and Plan (1) Fracture of left distal radius Current Visit: Yes Status: Acute Qualifiers: Encounter type: initial encounter Fracture type: closed Fracture morphology: unspecified fracture morphology Qualified Code(s): S52.502A - Unspecified fracture of the lower end of left radius, initial encounter for closed fracture (2) Fracture, intertrochanteric, left femur Current Visit: Yes Status: Acute Qualifiers: Encounter type: initial encounter Fracture type: closed Fracture alignment: nondisplaced Qualified Code(s): S72.145A - Nondisplaced intertrochanteric fracture of left femur, initial encounter for closed fracture Subjective Interval history: Doing fine POD#1 s/p L hip CMN. Pain is tolerable. No N/V. No CP/SOB. No fevers or chills. AFVSS Hg 8.2 GEN: NAD, AAOx3 LLE: Dressing c/d/i No drainage or erythema DNVI +EHL/PF/DF, SILT s/s/t/sp/dp BCR over toes POD#1 s/p L hip CMN, also with L distal radius fracture -WBAT LLE, NWB through L wrist -Ambulate with PT as able -PO pain control -Discharge planning - will need rehab Objective Vital signs: Vital Signs Temp Pulse Resp BP Pulse Ox 02/21/18 06:26 99.5 F 121 16 125/68 90 02/21/18 03:27 99.7 F H 85 18 122/69 90 02/21/18 00:11 98.6 F 93 15 139/81 92 02/20/18 21:51 90 02/20/18 19:04 98.1 F 71 18 99/64 90 02/20/18 15:53 98.3 F 62 17 105/60 89 02/20/18 13:43 98.7 F 77 18 92/53 02/20/18 12:37 97.9 F 86 18 94/54 85 02/20/18 11:31 97.4 F L 86 16 91/54 89 02/20/18 11:17 91 02/20/18 11:00 98.3 F 80 18 91 02/20/18 10:30 98.4 F 69 16 104/57 89 02/20/18 10:11 100.1 F H 67 16 96/54 96 02/20/18 10:01 100.1 F H 69 16 95/55 96 02/20/18 09:51 71 16 108/78 93 02/20/18 09:41 69 18 119/93 95 Intake and Output 02/20/18 02/21/18 02/21/18 23:59 07:59 15:59 Intake Total 340 / 340 1000 / 1000 Output Total 75 / 75 500 / 500 Balance 265 / 265 500 / 500 Intake: IV Fluids 100 / 100 1000 / 1000 Ancef 2,000 MG In 0.9 % Sodium 100 / 100 Chloride 100 ML @ 200 mls/hr IVPB Q8HR DANIS Rx#:[id number] Oral 240 / 240 Output: Catheter 75 / 75 500 / 500 Other: Meal Dinner Percent of Meal Consumed 30% Weight 79.6 kg Patient Weight 02/21/18 23:59 Weight 79.6 kg - Labs CBC & BMP: 02/21/18 05:14 02/21/18 05:14 Labs: Abnormal lab results RBC 2.65 M/mcL (3.82-4.97) L 02/21/18 05:14 Hgb 8.2 g/dL (11.5-15.4) L 02/21/18 05:14 Hct 25.6 % (35.3-44.9) L 02/21/18 05:14 Plt Count 77 K/mcL (140-400) L 02/21/18 05:14 MPV 13.0 fL (9.4-12.4) H 02/21/18 05:14 Immature Plt Fraction 13.0 % (1.1-6.1) H 02/21/18 05:14 PT 13.6 Seconds (9.4-12.1) H 02/20/18 00:32 Carbon Dioxide 30 mEq/L (23-29) H 02/21/18 05:14 BUN 26 mg/dL (8-23) H 02/21/18 05:14 Creatinine 1.85 mg/dL (0.60-1.20) H 02/21/18 05:14 Est GFR ( Amer) 31 (> 60) L 02/21/18 05:14 Est GFR (Non-Af Amer) 26 (> 60) L 02/21/18 05:14 Calcium 8.1 mg/dL (8.6-10.3) L 02/21/18 05:14 - VTE Documentation of Mechanical Device: Intermittent pneumatic compression device Consult Discharge Plan - Plan Referrals: Maria Eugenia English MD [Primary Care Provider] -
--- NOTE | 2018-02-21 09:55 | Internal Med Progress Note ---
Date of Encounter: 02/21/18 Time of Encounter: 09:52 - Assessment and plan (1) Fracture, intertrochanteric, left femur Current Visit: Yes Status: Acute Assessment and plan: Status post left hip cephalomedullary nail procedure POD#1 -Continue orthopedic care -Physical therapy -Analgesia -Incentive spirometer -We will likely need rehabilitation Also with distal left radial fracture -In volar splint -orthopedic care -Nonoperative management Qualifiers: Encounter type: initial encounter Fracture type: closed Fracture alignment: nondisplaced Qualified Code(s): S72.145A - Nondisplaced intertrochanteric fracture of left femur, initial encounter for closed fracture (2) SINDHU (acute kidney injury) Current Visit: Yes Status: Acute Assessment and plan: Acute kidney injury with likely stage III chronic kidney disease; unsure of baseline as the patient is not had any laboratory data in the last 3 years available; however prior to that it appears baseline was around 0.85 -Serum creatinine 1.48 on admission up to 1.85 today -Could have a component of progression of chronic kidney disease versus likely an intravascular volume depletion 2/2 decreased PO intake (per family) with the addition of frequent NSAID Lasix and MOISÉS inhibitor use. -Renal function continues to worsen today; could be ATN secondary to hemodynamics and the above medication use -Continue to hold Lasix and Zestril -Avoid all nephrotoxic medications -Check urinalysis -Check UPC, CK, uric acid, FENA -If renal function continues worsens we will consult nephrology tomorrow -Continue IV fluids (last EF 60-65%) -AM BMP (3) CKD (chronic kidney disease) stage 3, GFR 30-59 ml/min Current Visit: Yes Status: Suspected Assessment and plan: Acute kidney injury stage III chronic kidney disease -Could be due to progression of chronic kidney disease versus likely an intravascular volume depletion 2/2 decreased PO intake (per family) with the addition of frequent NSAID Lasix and MOISÉS inhibitor use. -Renal function continues to worsen today; could be ATN secondary to hemodynamics and the above medication use -Continue to hold Lasix and Zestril -Avoid all nephrotoxic medications -If renal function continues worsens we will consult nephrology tomorrow -Continue IV fluids (last EF 60-65%) -AM BMP (4) COPD (chronic obstructive pulmonary disease) Current Visit: No Status: Chronic Assessment and plan: -Continue home medications -Stable Qualifiers: COPD type: chronic bronchitis Chronic bronchitis type: unspecified Qualified Code(s): J42 - Unspecified chronic bronchitis (5) DVT prophylaxis Current Visit: Yes Status: Acute Assessment and plan: Subcutaneous heparin (6) Heart failure with preserved ejection fraction Current Visit: Yes Status: Acute Assessment and plan: 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 Patient had no acute events overnight. Patient doing well today just mild left hip pain. Patient denies any other complaints. Patient denies any chest pain, shortness breath, nausea, vomiting, diarrhea. Patient is afebrile. - Constitutional Vitals: Temp Pulse Resp BP Pulse Ox 99.5 F 121 16 125/68 90 02/21/18 06:26 02/21/18 06:26 02/21/18 06:26 02/21/18 06:26 02/21/18 06:26 Exam: Constitutional: No acute distress, Alert Psych: AAO x 3 Neck: supple, no JVD Cardio: regular rate and rhythm, +s1s2, Resp: clear to ascultation bilaterally, no wheezes/rales/ronchi Abd: soft, non tender/non distended, positive bowel sounds, no gaurding/reboud/ ridgitity Extremities: Left hip incision clean dry and intact, no hematoma ,calfs soft, left wrist wrapped in Moisés bandage Neuro: no focal deficits appreciated Lymph: no cervical/supraclavicular adenopahty apprecitated Internal Medicine: Result - Labs CBC & Chem 7: 02/21/18 05:14 02/21/18 05:14 Labs: Short CBC 02/21/18 Range/Units 05:14 WBC 10.0 (4.3-11.1) K/mcL Hgb 8.2 L (11.5-15.4) g/dL Hct 25.6 L (35.3-44.9) % Plt Count 77 L (140-400) K/mcL Neutrophils # 8.0 (1.6-8.9) K/mcL BMP 02/21/18 05:14 Sodium 136 Potassium 3.8 Chloride 98 Carbon Dioxide 30 H BUN 26 H Creatinine 1.85 H Glucose 102 Calcium 8.1 L - ABG Interpretation ABG results: PT/INR, D-dimer PT 13.6 Seconds (9.4-12.1) H 02/20/18 00:32 - Impressions Impressions Hip X-Ray 02/20/18 09:34 IMPRESSION: Postoperative left hip internal fixation with improved alignment of fracture fragments. D/ / 02/20/2018 11:20:03 Rd Stiles MD / [email or web address] Interpreting Provider: Rd Stiles MD - VTE Documentation of Mechanical Device: Intermittent pneumatic compression device Consult Discharge Plan - Plan Referrals: Maria Eugenia English MD [Primary Care Provider] -
[2018-02-21] MEDS ORDERED: 0.9 % Sodium Chloride 1,000 ML IVC SCH (10:15)
[2018-02-21] MEDS: *HR* OxyCODONE Immed Rel 5 MG TABLET PO PRN (10:27)
[2018-02-21] MEDS: Cholecalciferol (D-3) 1,000 UNIT TABLET PO SCH (10:28)
[2018-02-21] MEDS: amLODIPine 5 MG TABLET PO SCH (10:28)
[2018-02-21] MEDS: Aspirin Enteric Coated 81 MG Tablet PO SCH (10:28)
[2018-02-21] MEDS: Multivit/Ca/Min/Fe/FA 1 TAB TABLET PO SCH (10:28)
[2018-02-21 18:19] LABS: Uric Acid 6.3 mg/dL (2.3-7.6)
[2018-02-22 01:31] LABS: Bilirubin,Urine Negative (Negative); Blood,Urine Moderate (Negative); Clarity,Urine Cloudy (Clear); Color,Urine Yellow (Yellow); Glucose,Urine (UA) Normal (Normal); Ketones,Urine Trace mg/dL (Negative); Leukocyte Esterase,Urine Moderate (Negative); Nitrite,Urine Negative (Negative); PH,Urine 5.5 pH Units (5.0-8.0); Protein,Urine 30 mg/dL (Neg-Trace); Specific Gravity,Urine 1.023 (1.010-1.025); Urobilinogen,Urine Normal (Normal)
[2018-02-22 01:33] LABS: Hyaline Casts,Urine Moderate per lpf (None-Few); Squamous Epithelial Cell,Urine Many per lpf (None-Few); WBC,Urine 50-100 per hpf (0-3)
[2018-02-22 01:41] LABS: Granular Casts,Urine Few per lpf (None Seen)
[2018-02-22 01:42] LABS: Bacteria,Urine Moderate per hpf (None-Few)
[2018-02-22 01:52] LABS: Protein/Creatinine Ratio,Urine 0.76 mg/mg (0.00-0.20)
[2018-02-22 03:39] LABS: Basophils % 0.1 %; Eosinophils # 0.1 K/mcL (0.0-0.6); Eosinophils % 0.9 %; Hematocrit 21.9 % (35.3-44.9); Hemoglobin 6.8 g/dL (11.5-15.4); Immature Granulocytes % 0.8 % (0-4); Lymphocytes % 11.3 %; Mean Corpuscular HGB Conc 31.1 g/dL (31.6-35.5); Mean Corpuscular Hemoglobin 29.4 pg (28.0-33.3); Mean Corpuscular Volume 94.8 fL (83.0-100.0); Mean Platelet Volume 12.3 fL (9.4-12.4); Monocytes % 10.8 %; Neutrophils # 6.9 K/mcL (1.6-8.9); Red Blood Count 2.31 M/mcL (3.82-4.97); Red Cell Distribution Width 14.6 % (11.5-14.5); Segmented Neutrophils % 76.1 %
[2018-02-22 03:40] LABS: Platelet Count 69 K/mcL (140-400)
[2018-02-22 03:57] LABS: Calcium 7.9 mg/dL (8.6-10.3); Magnesium 1.7 mg/dL (1.6-2.6); Phosphorous 2.6 mg/dL (2.7-4.5); Potassium 3.8 mEq/L (3.5-5.1)
[2018-02-22] MEDS: *HR* Heparin 5,000 UNIT/ML VIAL SQ SCH ×2 (05:01→17:31)
[2018-02-22] MEDS: 0.9 % Sodium Chloride 1,000 ML IVC SCH ×3 (07:36→11:08)
--- NOTE | 2018-02-22 09:13 | Internal Med Progress Note ---
Date of Encounter: 02/22/18 Time of Encounter: 09:10 - Assessment and plan (1) Fracture, intertrochanteric, left femur Current Visit: Yes Status: Acute Assessment and plan: Status post left hip cephalomedullary nail procedure POD#2 -Continue orthopedic care -Physical therapy -Analgesia -Incentive spirometer -We will likely need rehabilitation; will discuss with case managment Also with distal left radial fracture -In volar splint -orthopedic care -Nonoperative management Qualifiers: Encounter type: initial encounter Fracture type: closed Fracture alignment: nondisplaced Qualified Code(s): S72.145A - Nondisplaced intertrochanteric fracture of left femur, initial encounter for closed fracture (2) Anemia Current Visit: Yes Status: Acute Assessment and plan: Acute anemia suspect secondary to blood loss postsurgery plus component of chronic kidney disease -asymptomatic -hcg 6.8 today from 8.2 yesterday -type and screen -transfuse 1 unit prbcs -recheck hgc at 3pm -cbc in am -check iron studies Qualifiers: Anemia type: other cause Other causes of anemia: other cause, not classified Qualified Code(s): D64.89 - Other specified anemias (3) SINDHU (acute kidney injury) Current Visit: Yes Status: Acute Assessment and plan: Acute kidney injury with likely stage III chronic kidney disease; unsure of baseline as the patient is not had any laboratory data in the last 3 years available; however prior to that it appears baseline was around 0.85 -Serum creatinine 1.48 on admission up to 1.85 on 02/21; now improving to 1.65 -Likely an intravascular volume depletion 2/2 decreased PO intake (per family) with the addition of frequent NSAID Lasix and RAMIRO inhibitor use. So with rhabdomyolysis is improving; CPK 1753 today from 3572; -Possible ATN secondary to hemodynamics and the above medication use; granular casts noted on UA -Continue to hold Lasix and Zestril -Avoid all nephrotoxic medications -Uric acid normal -Continue IV fluids (last EF 60-65%) but decrease rate -AM BMP -AM CK (4) CKD (chronic kidney disease) stage 3, GFR 30-59 ml/min Current Visit: Yes Status: Suspected Assessment and plan: Patient was stage III chronic kidney disease now with acute kidney injury that is improving -Please see above -Continue to hold nephrotoxic medications -Continue gentle IV fluids -Am bmp (5) COPD (chronic obstructive pulmonary disease) Current Visit: No Status: Chronic Assessment and plan: -Continue home medications -Stable Qualifiers: COPD type: chronic bronchitis Chronic bronchitis type: unspecified Qualified Code(s): J42 - Unspecified chronic bronchitis (6) DVT prophylaxis Current Visit: Yes Status: Acute Assessment and plan: -SQ heparin (7) Heart failure with preserved ejection fraction Current Visit: Yes Status: Acute Assessment and plan: Chronic compensated heart failure with preserved ejection fraction/diastolic dysfxn -Monitor volume status (8) Thrombocytopenia Current Visit: Yes Status: Acute Assessment and plan: Chronic thrombocythemia -platelets down slightly from 97K to 77K yesterday and 69K today -okay to continue sq heparin, do not suspect WALTER currently -am cbc - Time Spent With Patient 25 - 35 minutes - Subjective Interval history: Patient seen and examined at bedside sitting up in chair. Patient had no acute events overnight. Pt states her hip pain is improved today. Patient denies any other complaints. Patient denies any chest pain, shortness breath, nausea, vomiting, diarrhea. Patient is afebrile. Patient denies any melena or hematochezia. - Constitutional Vitals: Temp Pulse Resp BP Pulse Ox 98.2 F 105 18 125/74 91 02/22/18 06:51 02/22/18 06:51 02/22/18 06:51 02/22/18 06:51 02/22/18 06:51 Exam: Constitutional: No acute distress, Alert Psych: AAO x 3 Cardio: regular rate and rhythm, +s1s2, Resp: clear to ascultation bilaterally, no wheezes/rales/ronchi, unlabored Abd: soft, non tender/non distended, positive bowel sounds, no gaurding/reboud/ ridgitity Extremities: Left wrist with ramiro bandage and volar splint, left hip incisions are clean dry and intact, no evidence of hematoma Neuro: no focal deficits appreciated Lymph: no cervical/supraclavicular adenopahty apprecitated Internal Medicine: Result - Labs CBC & Chem 7: 02/22/18 03:26 02/22/18 03:26 Labs: Short CBC 02/22/18 Range/Units 03:26 WBC 9.1 (4.3-11.1) K/mcL Hgb 6.8 L (11.5-15.4) g/dL Hct 21.9 L (35.3-44.9) % Plt Count 69 L (140-400) K/mcL Neutrophils # 6.9 (1.6-8.9) K/mcL BMP 02/21/18 02/22/18 05:14 03:26 Sodium 136 135 L Potassium 3.8 3.8 Chloride 98 100 Carbon Dioxide 30 H 28 BUN 26 H 32 H Creatinine 1.85 H 1.65 H Glucose 102 112 H Calcium 8.1 L 7.9 L Urine 02/22/18 Range/Units 01:10 Urine Color Yellow (Yellow) Urine Clarity Cloudy A (Clear) Urine pH 5.5 (5.0-8.0) pH Units Ur Specific [place] 1.023 (1.010-1.025) Urine Protein 30 H (Neg-Trace) mg/dL Urine Glucose (UA) Normal (Normal) mg/dL - ABG Interpretation ABG results: PT/INR, D-dimer PT 13.6 Seconds (9.4-12.1) H 02/20/18 00:32 - VTE Documentation of Mechanical Device: Intermittent pneumatic compression device Consult Discharge Plan - Plan Referrals: Maria Eugenia English MD [Primary Care Provider] -
[2018-02-22] MEDS: Aspirin Enteric Coated 81 MG Tablet PO SCH (09:45)
[2018-02-22] MEDS: Cholecalciferol (D-3) 1,000 UNIT TABLET PO SCH (09:46)
[2018-02-22] MEDS: Multivit/Ca/Min/Fe/FA 1 TAB TABLET PO SCH (09:46)
[2018-02-22] MEDS: amLODIPine 5 MG TABLET PO SCH (09:47)
--- NOTE | 2018-02-22 11:56 | Orthopedics Progress Note ---
Date of Encounter: 02/22/18 Time of Encounter: 11:55 - Assessment and Plan (1) Fracture of left distal radius Current Visit: Yes Status: Acute Qualifiers: Encounter type: initial encounter Fracture type: closed Fracture morphology: unspecified fracture morphology Qualified Code(s): S52.502A - Unspecified fracture of the lower end of left radius, initial encounter for closed fracture (2) Fracture, intertrochanteric, left femur Current Visit: Yes Status: Acute Qualifiers: Encounter type: initial encounter Fracture type: closed Fracture alignment: nondisplaced Qualified Code(s): S72.145A - Nondisplaced intertrochanteric fracture of left femur, initial encounter for closed fracture Subjective Interval history: Doing fine POD#2 s/p L hip CMN. Pain is tolerable. No N/V. No CP/SOB. No fevers or chills. AFVSS Hg 6.8 GEN: NAD, AAOx3 LLE: Dressing c/d/i No drainage or erythema DNVI +EHL/PF/DF, SILT s/s/t/sp/dp BCR over toes POD#2 s/p L hip CMN, also with L distal radius fracture -WBAT LLE, NWB through L wrist -Ambulate with PT as able -PO pain control -1 u PRBC -Discharge planning - will need rehab Objective Vital signs: Vital Signs Temp Pulse Resp BP Pulse Ox 02/22/18 10:41 98.6 F 92 18 118/77 92 02/22/18 06:51 98.2 F 105 18 125/74 91 02/22/18 05:40 98.2 F 82 16 129/59 97 02/22/18 00:23 100.1 F H 70 16 101/65 92 02/21/18 21:42 94 02/21/18 21:14 99.0 F 82 16 113/61 94 02/21/18 17:14 107/66 02/21/18 16:07 78 157/118 87 02/21/18 11:55 98.9 F 73 19 112/51 89 Intake and Output 02/21/18 02/22/18 02/22/18 23:59 07:59 15:59 Output Total 250 / 250 Balance -250 / -250 Output: Urine 250 / 250 Other: # Urine Diapers 1 Weight 81 kg Patient Weight 02/22/18 23:59 Weight 81 kg - Labs CBC & BMP: 02/22/18 03:26 02/22/18 03:26 Labs: Abnormal lab results RBC 2.31 M/mcL (3.82-4.97) L 02/22/18 03:26 Hgb 6.8 g/dL (11.5-15.4) L 02/22/18 03:26 Hct 21.9 % (35.3-44.9) L 02/22/18 03:26 MCHC 31.1 g/dL (31.6-35.5) L 02/22/18 03:26 RDW 14.6 % (11.5-14.5) H 02/22/18 03:26 Plt Count 69 K/mcL (140-400) L 02/22/18 03:26 Immature Plt Fraction 13.0 % (1.1-6.1) H 02/21/18 05:14 PT 13.6 Seconds (9.4-12.1) H 02/20/18 00:32 Sodium 135 mEq/L (136-145) L 02/22/18 03:26 BUN 32 mg/dL (8-23) H 02/22/18 03:26 Creatinine 1.65 mg/dL (0.60-1.20) H 02/22/18 03:26 Est GFR ( Amer) 36 (> 60) L 02/22/18 03:26 Est GFR (Non-Af Amer) 29 (> 60) L 02/22/18 03:26 Glucose 112 mg/dL (70-105) H 02/22/18 03:26 Calcium 7.9 mg/dL (8.6-10.3) L 02/22/18 03:26 Phosphorus 2.6 mg/dL (2.7-4.5) L 02/22/18 03:26 Iron 14 mcg/dL (50-170) L 02/22/18 03:26 % Saturation 6 % (15-50) L 02/22/18 03:26 Transferrin 154 mg/dL (203-362) L 02/22/18 03:26 Creatine Kinase 1753 Units/L (30-223) H 02/22/18 03:26 Urine Clarity Cloudy (Clear) A 02/22/18 01:10 Urine Protein 30 mg/dL (Neg-Trace) H 02/22/18 01:10 Urine Ketones Trace mg/dL (Negative) H 02/22/18 01:10 Urine Blood Moderate (Negative) H 02/22/18 01:10 Ur Leukocyte Esterase Moderate (Negative) H 02/22/18 01:10 Urine Microscopic RBC 5-15 per hpf (0-3) H 02/22/18 01:10 Urine Microscopic WBC 50-100 per hpf (0-3) H 02/22/18 01:10 Ur Squamous Epith Cells Many per lpf (None-Few) H 02/22/18 01:10 Urine Bacteria Moderate per hpf (None-Few) H 02/22/18 01:10 Hyaline Casts Moderate per lpf (None-Few) H 02/22/18 01:10 Granular Casts Few per lpf (None Seen) H 02/22/18 01:10 Protein/Creatinin Ratio 0.76 mg/mg (0.00-0.20) H 02/22/18 01:10 Urine Total Protein 138 mg/dL (1-14) H 02/22/18 01:10 - VTE Documentation of Mechanical Device: Intermittent pneumatic compression device Consult Discharge Plan - Plan Referrals: Maria Eugenia English MD [Primary Care Provider] -
[2018-02-22] MEDS ORDERED: 0.9 % Sodium Chloride 250 ML ONE (15:16)
--- NOTE | 2018-02-22 17:53 | Electrocardiograph Report ---
[address] [address] Test Date: 2018-02-19 Pat Name: Luh King Department: 103 Room: [facility] Gender: F [employer] Off[employer]ider: VICTOR M : 1930 Requested By: [id number] Order Number: [id number] Reading MD: Eneida Quinonez Measurements Intervals [place] Rate: 67 P: 259 RI: 125 QRS: -23 QRSD: 118 T: 68 QT: 394 QTc: 409 Interpretive Statements SINUS RHYTHM INTRAVENTRICULAR CONDUCTION DELAY [105+ ms QRS DURATION, 80+ ms Q/S IN V1/V2, NO Q AND 60+ ms R IN I/aVL/V5/V6] LEFTWARD AXIS ARTIFACT Electronically Signed On 02-22-2018 17:51:53 EDT by Eneida Quinonez
[2018-02-22] MEDS: *HR* OxyCODONE Immed Rel 5 MG TABLET PO PRN (20:41)
[2018-02-22 21:32] LABS: Hemoglobin 8.3 g/dL (11.5-15.4); Mean Platelet Volume 12.4 fL (9.4-12.4)
[2018-02-22 21:34] LABS: Hematocrit 25.3 % (35.3-44.9); Immature Platelets 13.7 % (1.1-6.1); Mean Corpuscular HGB Conc 32.8 g/dL (31.6-35.5); Mean Corpuscular Volume 94.4 fL (83.0-100.0); Red Blood Count 2.68 M/mcL (3.82-4.97); Red Cell Distribution Width 14.5 % (11.5-14.5)
[2018-02-23 01:44] LABS: Lymphocytes % 15.8 %; Red Cell Distribution Width 14.7 % (11.5-14.5)
[2018-02-23 01:46] LABS: Basophils % 0.3 %; Eosinophils # 0.2 K/mcL (0.0-0.6); Eosinophils % 2.3 %; Hematocrit 24.1 % (35.3-44.9); Hemoglobin 7.5 g/dL (11.5-15.4); Immature Granulocytes % 0.6 % (0-4); Immature Platelets 14.7 % (1.1-6.1); Lymphocytes # 1.2 K/mcL (0.6-4.6); Mean Corpuscular HGB Conc 31.1 g/dL (31.6-35.5); Mean Corpuscular Hemoglobin 29.3 pg (28.0-33.3); Mean Corpuscular Volume 94.1 fL (83.0-100.0); Mean Platelet Volume 12.7 fL (9.4-12.4); Monocytes % 12.7 %; Neutrophils # 5.3 K/mcL (1.6-8.9); Red Blood Count 2.56 M/mcL (3.82-4.97); Segmented Neutrophils % 68.3 %
[2018-02-23 01:49] LABS: Platelet Count 82 K/mcL (140-400)
[2018-02-23 02:04] LABS: Calcium 8.1 mg/dL (8.6-10.3); Potassium 3.9 mEq/L (3.5-5.1)
[2018-02-23] MEDS: *HR* Heparin 5,000 UNIT/ML VIAL SQ SCH ×2 (05:57→18:33)
[2018-02-23] MEDS: 0.9 % Sodium Chloride 1,000 ML IVC SCH (05:57)
--- NOTE | 2018-02-23 09:32 | Internal Med Progress Note ---
<Cesar Noland Solitario - Last Filed: 02/23/18 17:01> Hospitalist Progress Note - Encounter Date of Encounter: 02/23/18 Time of Encounter: 09:30 - Subjective Interval History: Patient seen and examined. She is sitting up in a chair after working with physical therapy. No overnight events. She states that her hip pain is improving, and the therapy is going well. Therapist reports that her oxygen saturation had dropped down to the upper 70/low 80s during therapy. O2 sat is 88-90% upon my exam with patient resting. She states that she is on home oxygen , and she uses it as needed. She reports that she is short of breath "all the time" and that she has a chronic cough. Denies any worsening in her breathing or cough. Denies fevers or chills. Denies chest pain, abdominal pain, diarrhea , constipation, nausea, vomiting, dysuria, or extremity edema. - Exam Vitals: Temp Pulse Resp BP Pulse Ox 98.0 F 72 18 141/82 94 02/23/18 06:48 02/23/18 06:48 02/23/18 06:48 02/23/18 06:48 02/23/18 06:48 Exam: GEN: No acute distress, A&O3 HEAD: Atraumatic, normocephalic EYES: Pupils symmetric, sclerae white, conjunctivae pink HEART: RRR, normal S1 and S2, no murmurs LUNGS: Diminished and coarse bilaterally, no wheezing or crackles ABD: Soft, nontender, nondistended, bowel sounds present EXT: No edema noted, pulses 2/4 NEURO: No focal deficits, cooperative with exam - Assessment and Plan (1) Fracture, intertrochanteric, left femur Current Visit: Yes Status: Acute Assessment and Plan: POD#3 s/p left hip cephalomedullary nail procedure Continue orthopedic care, Physical therapy, pain control, Incentive spirometer Pt accepted at [facility] - pending insurance Also with distal left radial fracture in volar splint, nonoperative management (2) Acute blood loss anemia Current Visit: No Status: Acute Assessment and Plan: Acute anemia suspect secondary to blood loss postsurgery plus component of chronic kidney disease Asymptomatic Hgb 8.3 yesterday, down to 7.5 this morning - s/p 1U RBCs yesterday Iron studies show low iron as well - add iron supplementation Follow CBC (3) Hypoxemia requiring supplemental oxygen Current Visit: Yes Status: Chronic Assessment and Plan: 6L home O2 used PRN O2 sat dropped to 75-80s during therapy on 4L O2 O2 remains 88-90% when resting Coarse breath sounds - unsure if this is her baseline or not CXR on admission with no consolidation - noted pulmonary nodule - mild bilateral pleural effusions Afebrile, no leukocytosis PLAN: Increase O2 as needed for therapy Incentive spirometry Duonebs Stop IV fluids Resume home Lasix dose (4) COPD (chronic obstructive pulmonary disease) Current Visit: Yes Status: Chronic Assessment and Plan: Pt does not have any home inhalers - home O2 use PRN Plan as above (5) Acute kidney injury superimposed on chronic kidney disease Current Visit: Yes Status: Acute Assessment and Plan: Unclear of baseline renal function - no labs since 2014 Suspect acute kidney injury with likely stage III CKD - improving Cr 1.85 on admission, down to 1.32 Likely intravascular volume depletion 2/2 decreased PO intake (per family) with the addition of frequent NSAID Lasix and RAMIRO inhibitor use - CPK down to 949 today from 3572 Possible ATN secondary to hemodynamics and the above medication use - granular casts noted on UA Uric acid normal PLAN: Continue to hold Zestril Stop IV fluids Follow BMP (6) Heart failure with preserved ejection fraction Current Visit: No Status: Chronic Assessment and Plan: Chronic compensated heart failure with preserved EF Small pleural effusions, but clinically euvolemic Continue to monitor volume status (7) Thrombocytopenia Current Visit: Yes Status: Acute Assessment and Plan: Chronic thrombocythemia - initially 101, down to 69, but up to 89 today Continue sq heparin DVT Prophylaxis: Subq heparin - Time Spent with Patient Total time spent is greater than 50% in coordination of care (as documented) at patient's floor/unit and/or counseling patient: Internal Medicine: Result - Labs CBC & Chem 7: 02/23/18 01:10 02/23/18 01:10 Labs: Short CBC 02/22/18 02/23/18 Range/Units 21:14 01:10 WBC 8.0 7.7 (4.3-11.1) K/mcL Hgb 8.3 L D 7.5 L (11.5-15.4) g/dL Hct 25.3 L 24.1 L (35.3-44.9) % Plt Count 82 L 82 L (140-400) K/mcL Neutrophils # 5.3 (1.6-8.9) K/mcL BMP 02/22/18 02/23/18 03:26 01:10 Sodium 135 L 135 L Potassium 3.8 3.9 Chloride 100 101 Carbon Dioxide 28 27 BUN 32 H 29 H Creatinine 1.65 H 1.32 H Glucose 112 H 106 H Calcium 7.9 L 8.1 L - ABG Interpretation ABG results: PT/INR, D-dimer PT 13.6 Seconds (9.4-12.1) H 02/20/18 00:32 - VTE Documentation of Mechanical Device: Intermittent pneumatic compression device Consult Discharge Plan - Plan Referrals: Maria Eugenia English MD [Primary Care Provider] - <Delmis Marcial - Last Filed: 02/23/18 17:35> Hospitalist Progress Note - Encounter Date of Encounter: 02/23/18 - Exam Vitals: Temp Pulse Resp BP Pulse Ox 98.9 F 109 20 154/72 92 02/23/18 16:16 02/23/18 16:16 02/23/18 16:16 02/23/18 16:16 02/23/18 16:16 - Assessment and Plan (1) COPD (chronic obstructive pulmonary disease) Current Visit: Yes Status: Chronic (2) DVT prophylaxis Current Visit: Yes Status: Acute (3) Fracture, intertrochanteric, left femur Current Visit: Yes Status: Acute (4) CKD (chronic kidney disease) stage 3, GFR 30-59 ml/min Current Visit: Yes Status: Suspected (5) Heart failure with preserved ejection fraction Current Visit: No Status: Chronic (6) Thrombocytopenia Current Visit: Yes Status: Acute (7) SINDHU (acute kidney injury) Current Visit: Yes Status: Acute (8) Anemia Current Visit: Yes Status: Acute - Time Spent with Patient Total time spent is greater than 50% in coordination of care (as documented) at patient's floor/unit and/or counseling patient: Internal Medicine: Result - Labs CBC & Chem 7: 02/23/18 01:10 02/23/18 01:10 Labs: Short CBC 02/22/18 02/23/18 Range/Units 21:14 01:10 WBC 8.0 7.7 (4.3-11.1) K/mcL Hgb 8.3 L D 7.5 L (11.5-15.4) g/dL Hct 25.3 L 24.1 L (35.3-44.9) % Plt Count 82 L 82 L (140-400) K/mcL Neutrophils # 5.3 (1.6-8.9) K/mcL BMP 02/23/18 01:10 Sodium 135 L Potassium 3.9 Chloride 101 Carbon Dioxide 27 BUN 29 H Creatinine 1.32 H Glucose 106 H Calcium 8.1 L - ABG Interpretation ABG results: PT/INR, D-dimer PT 13.6 Seconds (9.4-12.1) H 02/20/18 00:32 - Impressions Impressions Chest X-Ray 02/23/18 09:39 IMPRESSION: Cardiomegaly with small bilateral pleural effusions and interstitial pulmonary edema suggesting CHF. D/ / Hernandez Levi MD / Hernandez Levi MD Interpreting Provider: Hernandez Levi MD - Attending Attestation I have seen and examined this patient independently. I have discussed with resident physician Dr. Guerrero regarding the management plan. Agree with the documentation. <Cesar Noland R - Last Filed: 02/23/18 17:01> (1) Fracture, intertrochanteric, left femur Qualifiers: Encounter type: initial encounter Fracture type: closed Fracture alignment: nondisplaced Qualified Code(s): S72.145A - Nondisplaced intertrochanteric fracture of left femur, initial encounter for closed fracture (4) COPD (chronic obstructive pulmonary disease) Qualifiers: COPD type: chronic bronchitis Chronic bronchitis type: unspecified Qualified Code(s): J42 - Unspecified chronic bronchitis <Delmis Marcial - Last Filed: 02/23/18 17:35> (1) COPD (chronic obstructive pulmonary disease) Qualifiers: COPD type: chronic bronchitis Chronic bronchitis type: unspecified Qualified Code(s): J42 - Unspecified chronic bronchitis (3) Fracture, intertrochanteric, left femur Qualifiers: Encounter type: initial encounter Fracture type: closed Fracture alignment: nondisplaced Qualified Code(s): S72.145A - Nondisplaced intertrochanteric fracture of left femur, initial encounter for closed fracture (8) Anemia Qualifiers: Anemia type: other cause Other causes of anemia: other cause, not classified Qualified Code(s): D64.89 - Other specified anemias
[2018-02-23] MEDS: amLODIPine 5 MG TABLET PO SCH (10:06)
[2018-02-23] MEDS: Aspirin Enteric Coated 81 MG Tablet PO SCH (10:06)
[2018-02-23] MEDS: Cholecalciferol (D-3) 1,000 UNIT TABLET PO SCH (10:06)
[2018-02-23] MEDS: Multivit/Ca/Min/Fe/FA 1 TAB TABLET PO SCH (10:06)
[2018-02-23] MEDS: Ipratropium/Albuterol Neb 3 ML IH SCH ×3 (10:50→22:11)
[2018-02-23] MEDS ORDERED: Albuterol 2.5 MG/3 ML NEBULIZER IH PRN (11:44)
[2018-02-23] MEDS ORDERED: Ipratropium/Albuterol Neb 3 ML IH PRN (13:36)
[2018-02-23] MEDS: Furosemide 20 MG TABLET PO SCH (15:28)
[2018-02-23] MEDS: traMADol 50 MG TABLET PO PRN (21:07)
[2018-02-24 01:24] LABS: Hemoglobin 7.3 g/dL (11.5-15.4); Immature Platelets 12.9 % (1.1-6.1); Mean Corpuscular HGB Conc 31.7 g/dL (31.6-35.5); Mean Corpuscular Hemoglobin 30.2 pg (28.0-33.3); Mean Platelet Volume 12.5 fL (9.4-12.4); Red Blood Count 2.42 M/mcL (3.82-4.97); Red Cell Distribution Width 14.7 % (11.5-14.5)
[2018-02-24 01:37] LABS: Calcium 8.3 mg/dL (8.6-10.3); Potassium 3.3 mEq/L (3.5-5.1)
[2018-02-24] MEDS: Ipratropium/Albuterol Neb 3 ML IH SCH ×4 (04:23→22:40)
[2018-02-24] MEDS: *HR* Heparin 5,000 UNIT/ML VIAL SQ SCH ×2 (06:14→18:10)
[2018-02-24] MEDS: Cholecalciferol (D-3) 1,000 UNIT TABLET PO SCH (08:26)
[2018-02-24] MEDS: amLODIPine 5 MG TABLET PO SCH (08:26)
[2018-02-24] MEDS: Aspirin Enteric Coated 81 MG Tablet PO SCH (08:27)
[2018-02-24] MEDS: Furosemide 20 MG TABLET PO SCH (08:27)
[2018-02-24] MEDS: Multivit/Ca/Min/Fe/FA 1 TAB TABLET PO SCH (08:27)
--- NOTE | 2018-02-24 12:52 | Discharge Summary ---
<MarcialJohn - Last Filed: 02/24/18 16:09> - NOTES TO OUTPATIENT PROVIDER Notes to Outpatient Provider: patient had Left hip cephalomedullary nail for Left hip intertrochanteric fracture on 02/20. She should have DVT prophylaxis but since does have higher risk for bleed, I spoke to the orthopedic surgeon who said to put her on ASA 325 BID for 1 month. Orders not resulted at time of discharge: Pending orders 02/20/18 XR hip complete LT [XR] Routine 02/25/18 04:00 Basic Metabolic Panel AM 0400 Complete Blood Count [HEME] AM 0400 Date of Encounter: 02/24/18 Time of Encounter: 09:30 - Discharge Diagnosis (1) Fracture, intertrochanteric, left femur Priority: Primary Status: Acute Qualifiers: Encounter type: initial encounter Fracture type: closed Fracture alignment: nondisplaced Qualified Code(s): S72.145A - Nondisplaced intertrochanteric fracture of left femur, initial encounter for closed fracture (2) Acute blood loss anemia Priority: Secondary Status: Acute (3) Acute kidney injury superimposed on chronic kidney disease Priority: Secondary Status: Acute (4) COPD (chronic obstructive pulmonary disease) Priority: Secondary Status: Chronic Qualifiers: COPD type: chronic bronchitis Chronic bronchitis type: unspecified Qualified Code(s): J42 - Unspecified chronic bronchitis (5) Heart failure with preserved ejection fraction Priority: Secondary Status: Chronic (6) Hypoxemia requiring supplemental oxygen Priority: Secondary Status: Chronic (7) Thrombocytopenia Priority: Secondary Status: Acute Hospital course: Ms. King is a 87 year old female with past medical history of COPD, hypertension, diastolic heart failure, presented to the ED after an episode of fall. She states that she was walking in her living room and felt like her left leg was giving in. Afterward, she landed on her left hip but did not hit her head or lose consciousness. Pelvic x-ray revealed left intertrochanteric fracture and ortho performed left hip cephalomedullary nail on 02/20. Patient tolerated the procedure well clinically but she did have drop in hemoglobin post -surgically from 8.7 to 6.8, requiring 1 unit of blood. She did not report any overt signs of bleeding, and her hemoglobin at baseline is about 7-9. Today, she is doing well with her pain control and has no issues while at rest. She has been working PT/OT who have recommended her go to [facility]. She has been accepted to [facility]. Concerning short term DVT prophylaxis s/p orthopedic surgery, I spoke with Dr. Nava who recommended she start on Aspirin 325 BID for the next month as patient has history of anemia and thrombocytopenia and has higher risk of bleeding if she were to start DOAC. Prescription for aspirin along with iron supplements and pain medications were printed. Discharge discussed with: patient, nurse, architecture consultant - Time Spent with Patient Total time spent providing and/or coordinating discharge services: Greater than 30 minutes - Discharge Medications Prescriptions: OxyCODONE Immed Rel [Roxicodone 5 MG] 10 mg PO Q6HR PRN 3 Days #12 tablet PRN Reason: Severe Pain Aspirin 325 mg PO BID #60 tablet Ferrous Sulfate 325 mg PO BIDWM #60 tablet Home Medications: Citalopram Hydrobromide [Citalopram HBr] 10 mg PO DAILY 02/19/18 [History] Ergocalciferol (VITAMIN D2) [Vitamin D] 800 unit PO BID 02/19/18 [History] Furosemide [Lasix] 20 mg PO DAILY 02/19/18 [History] Lisinopril [Zestril] 20 mg PO DAILY 02/19/18 [History] Simvastatin [Zocor] 20 mg PO HS 02/19/18 [History] Vit A/C/E AC/Znox/Cupric Oxide [Eye Vitamin-Minerals Tablet] 1 tab PO DAILY [History] amLODIPine [Norvasc] 5 mg PO DAILY 02/19/18 [History] diazePAM [Valium] 1 - 2 mg PO DAILY PRN 02/19/18 [History] Aspirin 325 mg PO BID #60 tablet 02/24/18 [Rx] Ferrous Sulfate 325 mg PO BIDWM #60 tablet 02/24/18 [Rx] OxyCODONE Immed Rel [Roxicodone 5 MG] 10 mg PO Q6HR PRN 3 Days #12 tablet [Rx] Allergies/Adverse Reactions: 3 Allergy/AdvReac Type Severity Reaction Status Date / Time No Known Allergies Allergy Verified 02/19/18 15:50 Date of admission: 02/19/18 14:07 Primary care physician: Maria Eugenia English Consults: 02/19/18 16:17 Consult to Pastoral Services [CONS] Routine Comment: 02/20/18 10:29 Consult to Occupational Therapy [CONS] Routine Comment: Evaluate, develop and implement POC Reason for Consult: post hip surgery Does patient have active BEDREST order?: No Is patient medically & hemodynamically stable?: Yes Consult to Orthopedic Navigator [CONS] [CONS] Routine Consult to Physical Therapy [CONS] Routine Comment: Evaluate, develop and implement POC Reason for Consult: post hip surgery Does patient have active BEDREST order?: No Is patient medically & hemodynamically stable?: Yes Consult to District Engineer [CONS] Routine Reason for SW Consult: post -op hip fracture RT Post Op Consult [CONS] Routine Discharging clinician: John Marcial Anticipated date of discharge: 02/24/18 - Constitutional Vitals: Temp Pulse Resp BP Pulse Ox 98.3 F 91 16 117/68 94 02/24/18 07:00 02/24/18 07:00 02/24/18 07:00 02/24/18 07:00 02/24/18 07:00 General appearance: Present: cooperative, pleasant, no acute distress, answers questions appropriately - Head Head exam: Present: atraumatic, normocephalic - Eye Eye exam: Present: PERRL, conjuntiva pink, sclera anicteric - Neck Neck exam general surgery: Present: supple, trachea midline. Absent: lymphadenopathy - Respiratory Respiratory exam: Present: CTAB. Absent: accessory muscle use, rales, rhonchi, wheezes - Cardiovascular Cardiovascular exam: Present: RRR, +S1, +S2. Absent: diastolic murmur, gallop, rubs, systolic murmur - GI/Abdominal GI/Abdominal exam: Present: normal bowel sounds, soft, no peritoneal signs. Absent: distended, tenderness - Extremities Exam Extremities exam: Present: warm, radial pulses palpable and symmetrical. Absent : calf tenderness, cyanotic, pedal edema - Neurological Exam Neurological exam: Present: alert, no focal deficits. Absent: facial droop, speech deficit - Skin Skin exam: Present: dry, intact - Patient Status Disposition: Transfer SNF Condition: Fair Functional capacity at discharge: uses cane/walker Overall status at discharge: patient is progressing back to baseline - Discharge Instructions Follow Up With: Maria Eugenia English MD [Primary Care Provider] - Additional Instructions: Please follow up with your PCP within 1 week Please follow up with your surgeon within 1-2 weeks. - Diet and Activity Activity: as per physical therapy Diet: advance to your usual diet - VTE Documentation of Mechanical Device: Intermittent pneumatic compression device <MarcialGabedicknanci - Last Filed: 02/24/18 16:33> Orders not resulted at time of discharge: Pending orders 02/20/18 XR hip complete LT [XR] Routine 02/25/18 04:00 Basic Metabolic Panel AM 0400 Complete Blood Count [HEME] AM 0400 Date of Encounter: 02/24/18 - Discharge Diagnosis (1) COPD (chronic obstructive pulmonary disease) Status: Chronic Qualifiers: COPD type: chronic bronchitis Chronic bronchitis type: unspecified Qualified Code(s): J42 - Unspecified chronic bronchitis (2) DVT prophylaxis Status: Acute (3) Fracture, intertrochanteric, left femur Status: Acute Qualifiers: Encounter type: initial encounter Fracture type: closed Fracture alignment: nondisplaced Qualified Code(s): S72.145A - Nondisplaced intertrochanteric fracture of left femur, initial encounter for closed fracture (4) CKD (chronic kidney disease) stage 3, GFR 30-59 ml/min Status: Suspected (5) Heart failure with preserved ejection fraction Status: Chronic (6) Thrombocytopenia Status: Acute (7) SINDHU (acute kidney injury) Status: Acute (8) Anemia Status: Acute Qualifiers: Anemia type: other cause Other causes of anemia: other cause, not classified Qualified Code(s): D64.89 - Other specified anemias Hospital course: Ms. King is a 87 year old female - Time Spent with Patient Total time spent providing and/or coordinating discharge services: Date of admission: 02/19/18 14:07 Primary care physician: Maria Eugenia English Consults: 02/19/18 16:17 Consult to Pastoral Services [CONS] Routine Comment: 02/20/18 10:29 Consult to Occupational Therapy [CONS] Routine Comment: Evaluate, develop and implement POC Reason for Consult: post hip surgery Does patient have active BEDREST order?: No Is patient medically & hemodynamically stable?: Yes Consult to Orthopedic Navigator [CONS] [CONS] Routine Consult to Physical Therapy [CONS] Routine Comment: Evaluate, develop and implement POC Reason for Consult: post hip surgery Does patient have active BEDREST order?: No Is patient medically & hemodynamically stable?: Yes Consult to District Engineer [CONS] Routine Reason for SW Consult: post -op hip fracture RT Post Op Consult [CONS] Routine - Constitutional Vitals: Temp Pulse Resp BP Pulse Ox 98.3 F 91 16 117/68 94 02/24/18 07:00 02/24/18 07:00 02/24/18 16:05 02/24/18 07:00 02/24/18 16:05 - Attending Attestation I have seen and examined this patient independently. I have discussed with resident physician Dr. Marcial regarding the discharge and follow-up plan. Agree with the documentation.
--- NOTE | 2018-02-24 13:01 | Physician Discharge Referral ---
ExtendedCare Referral Info Transfer To: [facility] Provider in Charge: Delmis Marcial Provider in Charge after Transfer: PCP Institutional Level of Care: Skilled - Diagnosis (1) Fracture, intertrochanteric, left femur Status: Acute (2) Acute blood loss anemia Status: Acute (3) Acute kidney injury superimposed on chronic kidney disease Status: Acute (4) COPD (chronic obstructive pulmonary disease) Status: Chronic (5) Heart failure with preserved ejection fraction Status: Chronic (6) Hypoxemia requiring supplemental oxygen Status: Chronic (7) Thrombocytopenia Status: Acute - Transfer Medications Prescriptions: OxyCODONE Immed Rel [Roxicodone 5 MG] 10 mg PO Q6HR PRN 3 Days #12 tablet PRN Reason: Severe Pain Aspirin 325 mg PO BID #60 tablet Ferrous Sulfate 325 mg PO BIDWM #60 tablet Home Medications: Citalopram Hydrobromide [Citalopram HBr] 10 mg PO DAILY 02/19/18 [History] Ergocalciferol (VITAMIN D2) [Vitamin D] 800 unit PO BID 02/19/18 [History] Furosemide [Lasix] 20 mg PO DAILY 02/19/18 [History] Lisinopril [Zestril] 20 mg PO DAILY 02/19/18 [History] Simvastatin [Zocor] 20 mg PO HS 02/19/18 [History] Vit A/C/E AC/Znox/Cupric Oxide [Eye Vitamin-Minerals Tablet] 1 tab PO DAILY [History] amLODIPine [Norvasc] 5 mg PO DAILY 02/19/18 [History] diazePAM [Valium] 1 - 2 mg PO DAILY PRN 02/19/18 [History] Aspirin 325 mg PO BID #60 tablet 02/24/18 [Rx] Ferrous Sulfate 325 mg PO BIDWM #60 tablet 02/24/18 [Rx] OxyCODONE Immed Rel [Roxicodone 5 MG] 10 mg PO Q6HR PRN 3 Days #12 tablet [Rx] Allergies/Adverse Reactions: 3 Allergy/AdvReac Type Severity Reaction Status Date / Time No Known Allergies Allergy Verified 02/19/18 15:50 - Respiratory Orders Oxygen / L per min Smoking Cessation: Smoking cessation has been advised. For more information, call the [place] Tobacco Quit Line at 8-480-HFPN-NOW. 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 PRN - Advance Directives Code Status: Full Code - Mobility Orders Other (with walker or assistance) - Rehabiliation Orders Rehab Potential: Fair Rehab Orders: ROM Exercises, Evaluation for Physical Therapy, Evaluation for Occupational Therapy - Treatments Skin tear care topically daily PRN per policy, May check for fecal impaction rectally daily PRN, Fleet enema rectally every other day PRN cleansing purposes - Diet Orders Cardiac CERTIFICATION: I certify that the transfer of the above named patient to an Extended Care Facility is necessary for the continuing treatment of the diagnosis listed. The above information is true and accurate reflection of patient's current condition. Confidential - Redisclosure prohibited without a patient's written consent.
[2018-02-24] MEDS: *HR* OxyCODONE Immed Rel 5 MG TABLET PO PRN (14:24)
[2018-02-25 01:16] LABS: Basophils % 0.3 %; Eosinophils # 0.3 K/mcL (0.0-0.6); Eosinophils % 3.6 %; Hematocrit 23.4 % (35.3-44.9); Hemoglobin 7.1 g/dL (11.5-15.4); Immature Granulocytes % 2.1 % (0-4); Lymphocytes # 1.6 K/mcL (0.6-4.6); Lymphocytes % 22.8 %; Mean Corpuscular HGB Conc 30.3 g/dL (31.6-35.5); Mean Corpuscular Hemoglobin 29.2 pg (28.0-33.3); Mean Corpuscular Volume 96.3 fL (83.0-100.0); Mean Platelet Volume 12.3 fL (9.4-12.4); Monocytes # 1.2 K/mcL (0.0-1.3); Monocytes % 17.3 %; Neutrophils # 3.8 K/mcL (1.6-8.9); Platelet Count 101 K/mcL (140-400); Red Blood Count 2.43 M/mcL (3.82-4.97); Red Cell Distribution Width 15.1 % (11.5-14.5); Segmented Neutrophils % 53.9 %
[2018-02-25 01:37] LABS: BUN/Creatinine Ratio 23 (6-26); Blood Urea Nitrogen 24 mg/dL (8-23); Calcium 8.5 mg/dL (8.6-10.3); Carbon Dioxide 31 mEq/L (23-29); Chloride 104 mEq/L (98-107); Glucose 125 mg/dL (70-105); Osmolality,Calculated 294 (280-300); Sodium 139 mEq/L (136-145); eGFR For Non-African Americans 50 (> 60)
[2018-02-25] MEDS: Ipratropium/Albuterol Neb 3 ML IH SCH ×2 (03:44→10:51)
[2018-02-25] MEDS: traMADol 50 MG TABLET PO PRN (04:01)
[2018-02-25] MEDS: *HR* Heparin 5,000 UNIT/ML VIAL SQ SCH (06:19)
[2018-02-25] MEDS: Aspirin Enteric Coated 81 MG Tablet PO SCH (09:23)
[2018-02-25] MEDS: amLODIPine 5 MG TABLET PO SCH (09:23)
[2018-02-25] MEDS: Furosemide 20 MG TABLET PO SCH (09:23)
[2018-02-25] MEDS: Cholecalciferol (D-3) 1,000 UNIT TABLET PO SCH (09:23)
[2018-02-25] MEDS: Multivit/Ca/Min/Fe/FA 1 TAB TABLET PO SCH (09:24)
--- NOTE | 2018-02-25 09:27 | Event Note ---
<Cesar Noland - Last Filed: 02/25/18 11:51> Date of Encounter: 02/25/18 Time of Encounter: 08:10 Ms. jensen is an 87-year-old female here with left intertrochanteric femur fracture after a fall and s/p intramedullary nail POD #5. She denies any complaints this morning. Pain is well controlled. Overnight mention of a few PVCs on tele, she was borderline tachycardic on my exam. Denies any worsening in her breathing or cough. Denies fevers or chills. Denies chest pain, palpitations, abdominal pain, diarrhea, constipation, nausea, vomiting, dysuria , or extremity edema. EXAM: GEN: No acute distress, A&O3 HEAD: Atraumatic, normocephalic EYES: Pupils symmetric, sclerae white, conjunctivae pink HEART: RRR, normal S1 and S2, no murmurs LUNGS: Diminished bilaterally, no wheezing or crackles ABD: Soft, nontender, nondistended, bowel sounds present EXT: Mild edema noted, pulses 2/4 NEURO: No focal deficits, cooperative with exam A/P: 1. Intertrochanteric fracture - POD#5 s/p left hip cephalomedullary nail - incision c/d/i, therapy going well - ASA 325mg BID, PT, pain control, IS - Pt supposed to be discharged yesterday 2. Acute blood loss anemia and iron deficiency anemia - Hgb 7.1 today, stable, continue iron supplementation 3. Chronic hypoxemia with COPD - chronic, no exacerbation, on home O2 dose, duonebs 4. Heart failure with preserved EF - , chronic, no exacerbation, no evidence of fluid overload, continue home lasix dose <Delmis Marcial - Last Filed: 02/25/18 15:33> Date of Encounter: 02/25/18 I have seen and examined this patient independently. I have discussed with resident physician Dr. Guerrero regarding the management plan. Agree with the documentation.
[2018-02-25 11:17] VITALS: BP 108/72
[2018-02-25] MEDS: *HR* OxyCODONE Immed Rel 5 MG TABLET PO PRN (12:58)
== END 2018-02-25 15:17 | DRG 481 ==
LOC: 3NENU 12:16 → EMEROO 12:16 → OBSVTOIN 14:07 → 3NENU 15:09
PROVIDERS: ADMIT Internal Medicine; ATTEND Internal Medicine

== ENCOUNTER 2018-04-11 16:57 | Inpatient (IN) ==
[2018-04-11] MEDS ORDERED: methylPREDNISolone 125 MG/2 ML VIAL IVP ONE (17:14)
[2018-04-11] MEDS ORDERED: Ipratropium/Albuterol Neb 3 ML IH ONE (17:14)
--- NOTE | 2018-04-11 17:17 | Emergency Department Note ---
Disposition Clinical Impression: Confusion, Weakness CHF (congestive heart failure) Qualifiers: Heart failure type: unspecified Heart failure chronicity: unspecified Qualified Code(s): I50.9 - Heart failure, unspecified Disposition: Admitted As Inpatient Condition: Good Forms: ED Satisfaction Letter General Adult HPI - General Chief complaint: ED Chest Pain Stated complaint: SOB Time Seen by Provider: 04/11/18 17:11 Source: patient Mode of arrival: ambulatory Limitations: no limitations Nursing Notes Reviewed: Yes Vital Signs Reviewed: Yes - History of Present Illness HPI Narrative: Patient presents today with family from half-way by EMS for evaluation of multiple complaints. Patient has been having increasing weakness and confusion. She had a fall yesterday. Patient fell hit the backside of her head and does have a small hematoma. The patient states that she has been having increasing shortness of breath and complaining that she cannot fully get all of her air in. The patient states that she has chest pain and abdominal pain. She describes both as a pressure. She states that there is nothing that makes things better or worse. Chest pain and belly pain had been progressive in nature but worse today than yesterday. She has had multiple episodes of trying to have a bowel movement but daughter states that she is only had small amounts out each time. Stool is dark in color but not specifically black or tarry or bloody per family. On exam the patient's guaiac is dark. There is no gross blood or melena. Patient does have a sacral decubitus ulcer that is stage I. Patient's abdomen is moderately tender. She will undergo evaluation for both trauma, shortness of breath as well as abdominal pain. - Related Data Home Medications Medication Instructions Recorded Confirmed Ergocalciferol (VITAMIN D2) 800 unit PO BID 02/19/18 03/01/18 [Vitamin D] Vit A/C/E AC/Znox/Cupric Oxide 1 tab PO DAILY 02/19/18 03/01/18 [Eye Vitamin-Minerals Tablet] diazePAM [Valium] 1 - 2 mg PO DAILY PRN 02/19/18 03/01/18 Albuterol Sulfate [Proair Hfa] 2 puff IH Q4-6H PRN 03/01/18 03/01/18 Citalopram [CeleXA] 20 mg PO DAILY 03/01/18 03/01/18 Metoprolol [Lopressor] 12.5 mg PO BID 03/01/18 03/01/18 Previous Rx's Medication Instructions Recorded Aspirin 325 mg PO BID #60 tablet 02/24/18 Ferrous Sulfate 325 mg PO BIDWM #60 tablet 02/24/18 OxyCODONE Immed Rel [Roxicodone 5 10 mg PO Q6HR PRN 3 Days #12 tablet 02/24/18 MG] Heparin 5,000 unit SQ Q12HCO vial 03/19/18 Allergies Allergy/AdvReac Type Severity Reaction Status Date / Time No Known Allergies Allergy Verified 02/19/18 15:50 Review of Systems: CONSTITUTIONAL: Weakness and fatigue and confusion HEENT: Eyes: No visual changes. Ears, Nose, Throat: No hearing loss, difficulty talking or unable to swallow. SKIN: No rash or itching. CARDIOVASCULAR: No chest pain, chest pressure or chest discomfort. No palpitations or edema. RESPIRATORY: Shortness of breath without cough or sputum production GASTROINTESTINAL: No anorexia, nausea, vomiting or diarrhea. No abdominal pain or blood. GENITOURINARY: No burning on urination or hematuria. NEUROLOGICAL: Confusion No headache. No change in bowel or bladder control. MUSCULOSKELETAL: No muscle pain, back pain, joint pain or stiffness. Past Medical History - Past Medical History Medical history: Reports: aortic aneurysm, arthritis, CHF, COPD, CVA, hypertension, other Surgical history: Reports: carotid endarterectomy Psychiatric history: Reports: anxiety, depression CIGAR HEAD STRINGER history: Reports: no CIGAR HEAD STRINGER history - Social History Smoking Status: Former smoker Smokeless Tobacco Status: No Alcohol use: Reports: none Drug use: Reports: none Physical Exam General: Well appearing, nontoxic, no acute distress Head: Normocephalic Atraumatic Eyes: PERRL, EOMI ENT: Airway patent, no stridor Neck: supple, no meningismus Chest: Lungs clear to auscultation bilateral Cardiac: Regular rhythm Abdomen: soft, nontender, nondistended; no guarding, rebound, or tenderness to percussion Musculoskeletal: Calves symmetric, nontender, no swelling pitting edema to the ankles Skin: Sacral decubitus ulcer stage I. Neuro: Alert and Oriented to person, place. No focal deficit Course - Reevaluation(s) Reevaluation #1: Patient's blood work and imaging is unremarkable. The patient has been reevaluated and she does have increased swelling to her legs per family. They state they have never been this bad. She states that she cannot lay flat secondary to her shortness of breath. Her BNP is not significantly elevated however she does have pulmonary vascular congestion on x-ray. Do not see any Lasix in her blood work. Will give patient Lasix. I did discuss with the family in regards to their overall thoughts and impressions. They states that her weakening and increasing confusion over the last several days is concerning and they would like this to be further evaluated in the hospital. I will place a call to the hospitalist to further discuss her case - Consultations Consultation #1: Discussed with hospitalist. Patient does have pitting edema and orthopnea consistent with CHF. She does have an echo and significant pulmonary hypertension. She was diagnosed with pneumonia. There is no evidence on chest x-ray specific for this. Effusion is improving. No fevers no worsening cough and productive cough. We will hold on antibiotics at this time. Vital Signs Temperature 97.4 F L 04/11/18 17:10 Pulse Rate 84 04/11/18 17:10 Respiratory Rate 33 04/11/18 17:10 Blood Pressure 122/59 04/11/18 17:10 O2 Sat by Pulse Oximetry 99 04/11/18 17:10 Temperature 97.4 F L 04/11/18 17:10 Pulse Rate 85 04/11/18 18:02 Respiratory Rate 27 04/11/18 18:02 Blood Pressure 125/63 04/11/18 18:02 O2 Sat by Pulse Oximetry 100 04/11/18 18:02 Oxygen Delivery Oxygen Delivery Nasal Cannula,Aerosol Mask Medical Decision Making - Medical Records Medical records reviewed: Yes I reviewed the patient's medical records. - Lab Data Lab results reviewed: Yes I reviewed the patient's lab results. Result diagrams: 04/11/18 17:11 04/11/18 17:11 Lab Results 04/11/18 04/11/18 04/11/18 Range/Units 17:11 17:11 17:11 WBC 11.6 H (4.3-11.1) K/mcL RBC 2.91 L (3.82-4.97) M/mcL Hgb 8.8 L (11.5-15.4) g/dL Hct 28.0 L (35.3-44.9) % MCV 96.2 (83.0-100.0) fL MCH 30.2 (28.0-33.3) pg MCHC 31.4 L (31.6-35.5) g/dL RDW 16.2 H (11.5-14.5) % Plt Count 150 (140-400) K/mcL MPV 12.0 (9.4-12.4) fL Immature Gran % 1.5 (0-4) % Seg Neutrophils % 89.6 % Lymphocytes % 4.6 % Monocytes % 4.0 % Eosinophils % 0.1 % Basophils % 0.2 % Neutrophils # 10.4 H (1.6-8.9) K/mcL Lymphocytes # 0.5 L (0.6-4.6) K/mcL Monocytes # 0.5 (0.0-1.3) K/mcL Eosinophils # 0.0 (0.0-0.6) K/mcL Basophils # 0.0 (0.0-0.2) K/mcL PT 12.9 H (9.4-12.1) Seconds INR 1.1 APTT 26.1 (26.0-36.0) Seconds VBG pH (7.32-7.42) pH Units VBG pCO2 (41-51) mmHg VBG pO2 (25-50) mmHg VBG HCO3 (21-27) mEq/L Sodium 137 (136-145) mEq/L Potassium 4.8 (3.5-5.1) mEq/L Chloride 101 (98-107) mEq/L Carbon Dioxide 25 (23-29) mEq/L BUN 30 H (8-23) mg/dL Creatinine 1.34 H (0.60-1.20) mg/dL Est GFR ( Amer) 45 L (> 60) Est GFR (Non-Af Amer) 37 L (> 60) BUN/Creatinine Ratio 22 (6-26) Glucose 160 H (70-105) mg/dL Calculated Osmolality 294 (280-300) Lactic Acid (0.5-2.2) mmol/L Calcium 9.5 (8.6-10.3) mg/dL Total Bilirubin 0.7 (0.3-1.0) mg/dL Direct Bilirubin 0.1 (0.0-0.2) mg/dL Indirect Bilirubin 0.6 (0.0-1.2) mg/dL AST 19 (13-39) Units/L ALT 17 (7-52) Units/L Alkaline Phosphatase 81 (34-104) Units/L Troponin I < 0.03 (< 0.04) ng/mL B-Natriuretic Peptide (Less than 100) pg/mL Serum Total Protein 6.8 (6.4-8.9) g/dL Albumin 3.3 L (3.5-5.7) g/dL Globulin 3.5 (2.4-3.5) g/dL Albumin/Globulin Ratio 0.9 L (1.1-2.2) Lipase 24 (11-82) Units/L Urine Color (Yellow) Urine Clarity (Clear) Urine pH (5.0-8.0) pH Units Ur Specific [place] (1.010-1.025) Urine Protein (Neg-Trace) mg/dL Urine Glucose (UA) (Normal) mg/dL Urine Ketones (Negative) mg/dL Urine Blood (Negative) Urine Nitrite (Negative) Urine Bilirubin (Negative) Urine Urobilinogen (Normal) mg/dL Ur Leukocyte Esterase (Negative) Urine Microscopic WBC (0-3) per hpf Urine Bacteria (None-Few) per hpf Ur Culture Indicated? (NO) 04/11/18 04/11/18 04/11/18 Range/Units 17:26 17:26 17:38 WBC (4.3-11.1) K/mcL RBC (3.82-4.97) M/mcL Hgb (11.5-15.4) g/dL Hct (35.3-44.9) % MCV (83.0-100.0) fL MCH (28.0-33.3) pg MCHC (31.6-35.5) g/dL RDW (11.5-14.5) % Plt Count (140-400) K/mcL MPV (9.4-12.4) fL Immature Gran % (0-4) % Seg Neutrophils % % Lymphocytes % % Monocytes % % Eosinophils % % Basophils % % Neutrophils # (1.6-8.9) K/mcL Lymphocytes # (0.6-4.6) K/mcL Monocytes # (0.0-1.3) K/mcL Eosinophils # (0.0-0.6) K/mcL Basophils # (0.0-0.2) K/mcL PT (9.4-12.1) Seconds INR APTT (26.0-36.0) Seconds VBG pH 7.49 H (7.32-7.42) pH Units VBG pCO2 36 L (41-51) mmHg VBG pO2 104 H (25-50) mmHg VBG HCO3 27 (21-27) mEq/L Sodium (136-145) mEq/L Potassium (3.5-5.1) mEq/L Chloride (98-107) mEq/L Carbon Dioxide (23-29) mEq/L BUN (8-23) mg/dL Creatinine (0.60-1.20) mg/dL Est GFR ( Amer) (> 60) Est GFR (Non-Af Amer) (> 60) BUN/Creatinine Ratio (6-26) Glucose (70-105) mg/dL Calculated Osmolality (280-300) Lactic Acid 1.7 (0.5-2.2) mmol/L Calcium (8.6-10.3) mg/dL Total Bilirubin (0.3-1.0) mg/dL Direct Bilirubin (0.0-0.2) mg/dL Indirect Bilirubin (0.0-1.2) mg/dL AST (13-39) Units/L ALT (7-52) Units/L Alkaline Phosphatase (34-104) Units/L Troponin I (< 0.04) ng/mL B-Natriuretic Peptide 274 H (Less than 100) pg/mL Serum Total Protein (6.4-8.9) g/dL Albumin (3.5-5.7) g/dL Globulin (2.4-3.5) g/dL Albumin/Globulin Ratio (1.1-2.2) Lipase (11-82) Units/L Urine Color (Yellow) Urine Clarity (Clear) Urine pH (5.0-8.0) pH Units Ur Specific [place] (1.010-1.025) Urine Protein (Neg-Trace) mg/dL Urine Glucose (UA) (Normal) mg/dL Urine Ketones (Negative) mg/dL Urine Blood (Negative) Urine Nitrite (Negative) Urine Bilirubin (Negative) Urine Urobilinogen (Normal) mg/dL Ur Leukocyte Esterase (Negative) Urine Microscopic WBC (0-3) per hpf Urine Bacteria (None-Few) per hpf Ur Culture Indicated? (NO) 04/11/18 Range/Units 18:25 WBC (4.3-11.1) K/mcL RBC (3.82-4.97) M/mcL Hgb (11.5-15.4) g/dL Hct (35.3-44.9) % MCV (83.0-100.0) fL MCH (28.0-33.3) pg MCHC (31.6-35.5) g/dL RDW (11.5-14.5) % Plt Count (140-400) K/mcL MPV (9.4-12.4) fL Immature Gran % (0-4) % Seg Neutrophils % % Lymphocytes % % Monocytes % % Eosinophils % % Basophils % % Neutrophils # (1.6-8.9) K/mcL Lymphocytes # (0.6-4.6) K/mcL Monocytes # (0.0-1.3) K/mcL Eosinophils # (0.0-0.6) K/mcL Basophils # (0.0-0.2) K/mcL PT (9.4-12.1) Seconds INR APTT (26.0-36.0) Seconds VBG pH (7.32-7.42) pH Units VBG pCO2 (41-51) mmHg VBG pO2 (25-50) mmHg VBG HCO3 (21-27) mEq/L Sodium (136-145) mEq/L Potassium (3.5-5.1) mEq/L Chloride (98-107) mEq/L Carbon Dioxide (23-29) mEq/L BUN (8-23) mg/dL Creatinine (0.60-1.20) mg/dL Est GFR ( Amer) (> 60) Est GFR (Non-Af Amer) (> 60) BUN/Creatinine Ratio (6-26) Glucose (70-105) mg/dL Calculated Osmolality (280-300) Lactic Acid (0.5-2.2) mmol/L Calcium (8.6-10.3) mg/dL Total Bilirubin (0.3-1.0) mg/dL Direct Bilirubin (0.0-0.2) mg/dL Indirect Bilirubin (0.0-1.2) mg/dL AST (13-39) Units/L ALT (7-52) Units/L Alkaline Phosphatase (34-104) Units/L Troponin I (< 0.04) ng/mL B-Natriuretic Peptide (Less than 100) pg/mL Serum Total Protein (6.4-8.9) g/dL Albumin (3.5-5.7) g/dL Globulin (2.4-3.5) g/dL Albumin/Globulin Ratio (1.1-2.2) Lipase (11-82) Units/L Urine Color Yellow (Yellow) Urine Clarity Clear (Clear) Urine pH 7.0 (5.0-8.0) pH Units Ur Specific [place] 1.015 (1.010-1.025) Urine Protein 30 H (Neg-Trace) mg/dL Urine Glucose (UA) Normal (Normal) mg/dL Urine Ketones 15 H (Negative) mg/dL Urine Blood Negative (Negative) Urine Nitrite Negative (Negative) Urine Bilirubin Negative (Negative) Urine Urobilinogen Normal (Normal) mg/dL Ur Leukocyte Esterase Negative (Negative) Urine Microscopic WBC 0-3 (0-3) per hpf Urine Bacteria Few (None-Few) per hpf Ur Culture Indicated? NO (NO) - Radiology Data Radiology results reviewed: Yes I reviewed the patient's radiology results. - EKG Data EKG #1 EKG attestation: Yes I reviewed and interpreted this EKG. EKG results narrative: EKG shows sinus rhythm with heart rate of 83. CT interval 148. QRS 89. QTC 434. Patient has no significant ST elevations or depressions.
[2018-04-11] MEDS ORDERED: Ondansetron 4 MG/2 ML VIAL IVP ONE (17:31)
[2018-04-11 17:41] LABS: Basophils % 0.2 %; Eosinophils % 0.1 %; Hemoglobin 8.8 g/dL (11.5-15.4); Immature Granulocytes % 1.5 % (0-4); Lymphocytes # 0.5 K/mcL (0.6-4.6); Lymphocytes % 4.6 %; Mean Corpuscular HGB Conc 31.4 g/dL (31.6-35.5); Mean Corpuscular Hemoglobin 30.2 pg (28.0-33.3); Mean Corpuscular Volume 96.2 fL (83.0-100.0); Monocytes # 0.5 K/mcL (0.0-1.3); Neutrophils # 10.4 K/mcL (1.6-8.9); Platelet Count 150 K/mcL (140-400); Red Blood Count 2.91 M/mcL (3.82-4.97); Red Cell Distribution Width 16.2 % (11.5-14.5); Segmented Neutrophils % 89.6 %
[2018-04-11 17:41] LABS: VBG HCO3 27 mEq/L (21-27); VBG PCO2 36 mmHg (41-51); VBG PH 7.49 pH Units (7.32-7.42); VBG PO2 104 mmHg (25-50)
[2018-04-11 17:47] LABS: INR 1.1; Prothrombin Time 12.9 Seconds (9.4-12.1)
[2018-04-11 17:49] LABS: Activated Partial Thrombo Time 26.1 Seconds (26.0-36.0)
[2018-04-11 18:04] LABS: Alanine Aminotransferase 17 Units/L (7-52); Albumin 3.3 g/dL (3.5-5.7); Albumin/Globulin Ratio 0.9 (1.1-2.2); Alkaline Phosphatase 81 Units/L (34-104); Aspartate Amino Transferase 19 Units/L (13-39); BUN/Creatinine Ratio 22 (6-26); Bilirubin,Direct 0.1 mg/dL (0.0-0.2); Bilirubin,Indirect 0.6 mg/dL (0.0-1.2); Bilirubin,Total 0.7 mg/dL (0.3-1.0); Blood Urea Nitrogen 30 mg/dL (8-23); Calcium 9.5 mg/dL (8.6-10.3); Carbon Dioxide 25 mEq/L (23-29); Chloride 101 mEq/L (98-107); Globulin 3.5 g/dL (2.4-3.5); Glucose 160 mg/dL (70-105); Lipase 24 Units/L (11-82); Osmolality,Calculated 294 (280-300); Potassium 4.8 mEq/L (3.5-5.1); Sodium 137 mEq/L (136-145); Total Protein 6.8 g/dL (6.4-8.9); Troponin I < 0.03 ng/mL (< 0.04); eGFR For Non-African Americans 37 (> 60)
[2018-04-11 18:38] LABS: Bilirubin,Urine Negative (Negative); Blood,Urine Negative (Negative); Clarity,Urine Clear (Clear); Color,Urine Yellow (Yellow); Glucose,Urine (UA) Normal (Normal); Ketones,Urine 15 mg/dL (Negative); Leukocyte Esterase,Urine Negative (Negative); Nitrite,Urine Negative (Negative); Protein,Urine 30 mg/dL (Neg-Trace); Specific Gravity,Urine 1.015 (1.010-1.025); Urobilinogen,Urine Normal (Normal)
[2018-04-11 18:53] LABS: Bacteria,Urine Few per hpf (None-Few); WBC,Urine 0-3 per hpf (0-3)
[2018-04-11] MEDS ORDERED: Furosemide 40 MG/4 ML VIAL IVP STA (19:22)
[2018-04-11] MEDS ORDERED: diazePAM 2 MG TABLET PO PRN (20:21)
--- NOTE | 2018-04-11 20:26 | Internal Med History&Physical ---
<Nelson Badillo - Last Filed: 04/11/18 20:22> Date of Encounter: 04/11/18 Time of Encounter: 20:22 Internal Medicine - H&P: HPI Chief complaint: Shortness of breath Admitted From: Home Plans for Post Hospital Care: Home History of present illness: Ms. King is a 87 year old female presented from [facility] via EMS for shortness of breath. Patient fell overnight. She fell backwards on her head and to elbows, and has a right-sided occipital hematoma. Denies syncope. Since then family reports she has been more confused and does not know place, time, cannot remember family members names. All day today patient was complaining that she cannot breathe and was very anxious. Patient has a history of severe pulmonary hypertension and is on 5 L oxygen. Family states that she did not require more oxygen this morning even though she complained of being short of breath. Patient also has been afebrile, without cough, denies sick contacts as per family. She also complains of umbilical abdominal pain for the last few days that is aching in nature and currently resolved. She has had episodes of nausea and vomiting and family states she has not had a bowel movement for a few days. Last bowel movement was 2 days ago and is runny, without melena or hematochezia. has a stage I sacral decubitus ulcer. She also was reported to fall out of bed one week ago and scraped bilateral knees and elbows. Past Med Surg Social Fam HX - Past Medical History Medical history: aortic aneurysm, arthritis, CHF, COPD, CVA, hypertension, other Additional medical history: Left ankle fracture Psychiatric history: anxiety, depression - Past Surgical History Surgical History: carotid endarterectomy Additional surgical history: broken ankle - Social History Smoking Status: Former smoker Smokeless Tobacco Status: No Alcohol use: none Drug use: none - Family History Mother Adopted: No Living Status: Hx Family Cardiac Disorders: Yes (mother) Hx Family Respiratory Disorders: No Hx Family Cancer: No Hx Family GI Disorders: No Hx Family Endocrine Disorder: No Hx Family Neuromuscular Disorders: No Hx Family Neurologic Disorders: No Hx Family HEENT Disorders: No Hx Family Autoimmune Disorders: No Internal Medicine - H&P: Meds Ergocalciferol (VITAMIN D2) [Vitamin D] 800 unit PO BID 02/19/18 [History] Vit A/C/E AC/Znox/Cupric Oxide [Eye Vitamin-Minerals Tablet] 1 tab PO DAILY [History] diazePAM [Valium] 1 - 2 mg PO DAILY PRN 02/19/18 [History] Aspirin 325 mg PO BID #60 tablet 02/24/18 [Rx] Ferrous Sulfate 325 mg PO BIDWM #60 tablet 02/24/18 [Rx] OxyCODONE Immed Rel [Roxicodone 5 MG] 10 mg PO Q6HR PRN 3 Days #12 tablet [Rx] Albuterol Sulfate [Proair Hfa] 2 puff IH Q4-6H PRN 03/01/18 [History] Citalopram [CeleXA] 20 mg PO DAILY 03/01/18 [History] Metoprolol [Lopressor] 12.5 mg PO BID 03/01/18 [History] Heparin 5,000 unit SQ Q12HCO vial 03/19/18 [Rx] 3 Allergy/AdvReac Type Severity Reaction Status Date / Time No Known Allergies Allergy Verified 02/19/18 15:50 All Systems PM: A 10-system review of systems was performed and is negative for pertinent findings except as documented above in the HPI. Review of systems: Constitutional: Denies fever, chills HEENT: Reports trauma, denies headache, blurry vision, eye discharge, ear pain, ear discharge neck pain, sore throat, rhinorrhea Heart: Denies chest pain palpitations, LE edema Lungs: Reports shortness of breath, denies cough Abdomen: Reports abdominal pain, nausea, vomiting, constipation MSK: Denies back pain, joint pain Kidney: Denies dysuria, hematuria Skin: Denies rash, reports sacraldecubitus ulcer Neuro: Denies numbness and tingling Psych: denies axniety, depression - Constitutional Vitals: Temp Pulse Resp BP Pulse Ox 97.4 F L 89 16 93/41 94 04/11/18 17:10 04/11/18 20:09 04/11/18 20:09 04/11/18 20:09 04/11/18 20:09 Exam: General: pleasant, without distress, sleeping HEENT: Right occipital hematoma without tenderness, EOMI, PERRL, absent ear discharge or trauma, Moist Mucous Membranes, uvula midline Neck: nontender to palpation, absent lymphadenopathy, Cardiovascualr: Regular rate and rhythm with no murmur, absent gallops or rubs, 1+ pedal edema, radial pulses 2 out of 4 Lungs: Clear to auscultation bilaterally, not in respiratory distress Abdomen: Soft nontender, nondistended positive bowel sounds, absent hepatomegaly Skin: warm and dry, absent rash, stage I sacral decubitus ulcer, bilateral elbow (bleeding) and knee abrasions MSK: absent clubbing, cyanosis, joints without swelling Neuro: Alert to self not to time, place, situation Psych: Calm, without anxiety Internal Med - H&P Results - Labs CBC & Chem 7: 04/11/18 17:11 04/11/18 17:11 - Assessment and plan (1) Fall Current Visit: Yes Status: Acute Assessment and plan: patient presents with fall at [facility] she fell backwards on to her head and also brusied b/l elbows she had a fall last week where she feel forward getting up from bed and bruised her b/l ankles and knee denies syncope. CT head, chest x-ray, cervical spine CT, abdominal/pelvis CT negative On examination she has a right occipital hematoma that tenderness Pt/OT consult Qualifiers: Encounter type: subsequent encounter Qualified Code(s): W19.XXXD - Unspecified fall, subsequent encounter (2) Pulmonary hypertension Current Visit: Yes Status: Acute Assessment and plan: Patient has history of severe pulmonary hypertension requiring 5 L oxygen supplementation Currently she is only on 5 L oxygen supplementation and has not required increased oxygen demand since presentation. We will also continue BiPAP that she uses at home. (3) CKD (chronic kidney disease) stage 3, GFR 30-59 ml/min Current Visit: Yes Status: Acute Assessment and plan: Patient has history of CK D Her serum creatinine is 1.34 which is at baseline Avoid nephrotoxic agents. (4) COPD (chronic obstructive pulmonary disease) Current Visit: Yes Status: Chronic Assessment and plan: Patient has history of COPD She has history of smoking We will continue her albuterol as needed Nebulizers when necessary She is not an exacerbation Qualifiers: COPD type: emphysema Emphysema type: unspecified Qualified Code(s): J43.9 - Emphysema, unspecified (5) DVT prophylaxis Current Visit: Yes Status: Acute Assessment and plan: Heparin subcutaneous (6) Anxiety and depression Current Visit: Yes Status: Chronic Assessment and plan: Patient has history of anxiety and depression Patient's mother did state that after the fall throughout the next day she felt very short of breath but did not require any oxygen supplementation Patient has history of having anxiety attacks currently calm, sleeping. We will continue patient's Celexa and put her on when necessary hydroxyzine. (7) Constipation Current Visit: Yes Status: Acute Assessment and plan: Family does state the patient has not had a bowel movement last few days Patient also was seen to have nausea and vomiting There is no hematemesis When necessary Zofran for nausea We will give patient milk of magnesia. If patient remains constipated with continued N/V we will obtain a KUB for further analysis. Qualifiers: Constipation type: unspecified constipation type Qualified Code(s): K59.00 - Constipation, unspecified (8) Hematoma Current Visit: Yes Status: Acute Assessment and plan: 2nd to fall no continue to monitor size patient does not have tenderness at the site of hematoma Ct head negative. (9) Decubitus ulcer of sacral region, stage 1 Current Visit: Yes Status: Acute Assessment and plan: daily dressing change (10) Diastolic CHF Current Visit: Yes Status: Acute Assessment and plan: hx of diastolic CHF patient is not in exacerbation she has 1+ lower extremity edema CXR does mention mild pulmonary edema, lung sounds are clear without wheezing or crackles she is on her home 5l O2 we will put her on cardiac diet we will reserve diuretic use if her respiratory status worsens 2nd to chf as she does not use diuretics at home. Qualifiers: Heart failure chronicity: chronic Qualified Code(s): I50.32 - Chronic diastolic (congestive) heart failure (11) Encephalopathy Current Visit: Yes Status: Acute Assessment and plan: acute on chronic encephalopathy family reports at baseline she may not remember the day but currenty she is not oriented to palce, time, situation, president she is afebrile, urinalysis is negative her hgb is 8.8 which is decreased form 9.9 but she has no signs of acute bleeding. Stool hemocult negative VBG pCo2 36 she is calm electrolytes, renal funciton wnl: no evidence of metabolic encephalopathy likely 2nd to fall and possible anxiety attack today we would like to monitor her mental status for improvement. monitor hgb. blood cultures were drawn by ED. - Time Spent With Patient Total time spent is greater than 50% in coordination of care (as documented) at patient's floor/unit and/or counseling patient: Daniel Arias - Last Filed: 04/11/18 21:43> Date of Encounter: 04/11/18 Internal Medicine - H&P: HPI History of present illness: Ms. King is a 87 year old female All Systems PM: A 10-system review of systems was performed and is negative for pertinent findings except as documented above in the HPI. - Constitutional Vitals: Temp Pulse Resp BP Pulse Ox 97.4 F L 89 16 93/41 94 04/11/18 17:10 04/11/18 20:09 04/11/18 20:09 04/11/18 20:09 04/11/18 20:09 Internal Med - H&P Results - Labs CBC & Chem 7: 04/11/18 17:11 04/11/18 17:11 - Assessment and plan (1) COPD (chronic obstructive pulmonary disease) Current Visit: Yes Status: Chronic Qualifiers: COPD type: emphysema Emphysema type: unspecified Qualified Code(s): J43.9 - Emphysema, unspecified (2) DVT prophylaxis Current Visit: Yes Status: Acute (3) Anxiety and depression Current Visit: Yes Status: Chronic (4) Constipation Current Visit: Yes Status: Acute Qualifiers: Constipation type: unspecified constipation type Qualified Code(s): K59.00 - Constipation, unspecified (5) Hematoma Current Visit: Yes Status: Acute (6) Diastolic CHF Current Visit: Yes Status: Acute Qualifiers: Heart failure chronicity: chronic Qualified Code(s): I50.32 - Chronic diastolic (congestive) heart failure (7) Pulmonary hypertension Current Visit: Yes Status: Acute (8) CKD (chronic kidney disease) stage 3, GFR 30-59 ml/min Current Visit: Yes Status: Acute (9) Fall Current Visit: Yes Status: Acute Qualifiers: Encounter type: subsequent encounter Qualified Code(s): W19.XXXD - Unspecified fall, subsequent encounter (10) Decubitus ulcer of sacral region, stage 1 Current Visit: Yes Status: Acute (11) Encephalopathy Current Visit: Yes Status: Acute - Time Spent With Patient Total time spent is greater than 50% in coordination of care (as documented) at patient's floor/unit and/or counseling patient: - Attending Attestation 87-year-old woman with multiple comorbidities including chronic kidney disease , diastolic heart failure, COPD with resultant severe pulmonary hypertension, fractures who has been admitted multiple times for plethora of issues [facility] with the complaint of poor mentation, more frequent falls and complaint of chest pain and dyspnea. She uses 5 L of oxygen at baseline. On arrival here she was seen to be hemodynamically stable. She had CT and x- rays done to assess for any new fractures given her history of fall with a recent trauma to the back of her head however these were unremarkable. Her lab work were grossly unrevealing as well but actually showing an improvement from her last admission. She did not require escalation of her supplemental oxygen rate. My assessment she was lying comfortably in bed in no acute distress. Family members at bedside state they have decided to make her DNR CCA DNI. Physical exam remarkable for reduced breath sounds in both lung jane and 1+ pitting edema restricted to her feet. Dry fragile skin. Suspect dyspnea is related to her severe portal hypertension and diastolic heart failure with a component of anxiety as confirmed by family seeing as she still is saturating over 95% at her baseline supplemental oxygen. We will keep on fall precautions and monitor overnight; continue supplemental oxygen as needed, assess need for diuretics, frequent reorientation for mental status. Echo done recently 1 month ago therefore no need for recheck. If she remains stable over the next 24 hours she can be discharged back to [facility].
[2018-04-11] MEDS ORDERED: MOM Conc 10 ML UD.LIQ PO ONE (20:32)
[2018-04-11] MEDS: *HR* Heparin 5,000 UNIT/ML VIAL SQ SCH (23:49)
[2018-04-11] MEDS: Aspirin 325 MG TABLET PO SCH (23:50)
[2018-04-12] MEDS: Acetaminophen 325 MG TABLET PO PRN ×2 (05:51→14:52)
[2018-04-12] MEDS: *HR* Heparin 5,000 UNIT/ML VIAL SQ SCH ×3 (05:51→22:35)
[2018-04-12 08:39] LABS: Basophils % 0.2 %; Hematocrit 25.9 % (35.3-44.9); Hemoglobin 8.1 g/dL (11.5-15.4); Immature Granulocytes % 1.5 % (0-4); Lymphocytes # 0.6 K/mcL (0.6-4.6); Lymphocytes % 5.5 %; Mean Corpuscular HGB Conc 31.3 g/dL (31.6-35.5); Mean Corpuscular Hemoglobin 29.8 pg (28.0-33.3); Mean Corpuscular Volume 95.2 fL (83.0-100.0); Monocytes # 0.3 K/mcL (0.0-1.3); Monocytes % 2.3 %; Platelet Count 141 K/mcL (140-400); Red Blood Count 2.72 M/mcL (3.82-4.97); Red Cell Distribution Width 16.7 % (11.5-14.5); Segmented Neutrophils % 90.5 %
[2018-04-12 08:58] LABS: Potassium 4.9 mEq/L (3.5-5.1)
[2018-04-12] MEDS: Aspirin 325 MG TABLET PO SCH ×2 (09:06→22:33)
--- NOTE | 2018-04-13 00:30 | Internal Med Progress Note ---
Hospitalist Progress Note - Encounter Date of Encounter: 04/12/18 Time of Encounter: 19:00 - Subjective Interval History: SUBJECTIVE: Feels weak. No CP/dypnea -- on 5 l/min oxygen (her baseline). No significant RODRÍGUEZ. Ambulates with assistance. OBJECTIVE: Skin: Free of rash and discoloration. ENMT: Oral/pharyngeal mucosa is normal in appearance. Eyes: Sclera is white. There is no discharge from eyes. Respiratory: Normal breath sounds; no crackles or wheezes. CV: Heart is regular; no gallop or murmur. GI: Abdomen is soft and not tender. There is no palpable mass or visceromegaly. Neuro: There is no focal deficits. ASSESSMENT AND PLAN: Fall -- multifactorial; mostly due to deconditioning. we will offer her physical therapy. COPD (stable)/chr resp failure with hypoxia. Suplpemental O2 at 5 l/min. Chr diast ht failure. Seems to be compensated. DISPOSITION: We will observe for stability. Tent discharge in 1-2 days. - Exam Vitals: Temp Pulse Resp BP Pulse Ox 98.0 F 88 16 103/64 90 04/12/18 20:58 04/12/18 20:58 04/12/18 20:58 04/12/18 20:58 04/12/18 20:58 Exam: ee - Assessment and Plan (1) Fall Current Visit: Yes Status: Acute (2) COPD (chronic obstructive pulmonary disease) Current Visit: Yes Status: Chronic (3) Chronic respiratory failure with hypoxia Current Visit: Yes Status: Acute (4) Hematoma Current Visit: Yes Status: Acute (5) Diastolic CHF Current Visit: Yes Status: Acute (6) Hypertension with renal disease Current Visit: Yes Status: Acute (7) Decubitus ulcer of sacral region, stage 1 Current Visit: Yes Status: Acute (8) Anxiety and depression Current Visit: Yes Status: Chronic - Time Spent with Patient Total time spent is greater than 50% in coordination of care (as documented) at patient's floor/unit and/or counseling patient: 25 - 35 minutes Plan of Care Discussed with: patient (and family) Internal Medicine: Result - Labs CBC & Chem 7: 04/12/18 07:37 04/12/18 07:37 Labs: Short CBC 04/12/18 Range/Units 07:37 WBC 11.1 (4.3-11.1) K/mcL Hgb 8.1 L (11.5-15.4) g/dL Hct 25.9 L (35.3-44.9) % Plt Count 141 (140-400) K/mcL Neutrophils # 10.0 H (1.6-8.9) K/mcL BMP 04/12/18 07:37 Sodium 138 Potassium 4.9 Chloride 100 Carbon Dioxide 31 H BUN 29 H Creatinine 1.26 H Glucose 123 H Calcium 9.0 - ABG Interpretation ABG results: PT/INR, D-dimer PT 12.9 Seconds (9.4-12.1) H 04/11/18 17:11 Consult Discharge Plan - Plan Referrals: Maria Eugenia English MD [Primary Care Provider] - (1) Fall Qualifiers: Encounter type: subsequent encounter Qualified Code(s): W19.XXXD - Unspecified fall, subsequent encounter (2) COPD (chronic obstructive pulmonary disease) Qualifiers: COPD type: emphysema Emphysema type: unspecified Qualified Code(s): J43.9 - Emphysema, unspecified (5) Diastolic CHF Qualifiers: Heart failure chronicity: chronic Qualified Code(s): I50.32 - Chronic diastolic (congestive) heart failure
[2018-04-13] MEDS: *HR* Heparin 5,000 UNIT/ML VIAL SQ SCH ×3 (05:21→23:20)
[2018-04-13] MEDS ORDERED: Ipratropium/Albuterol Neb 3 ML IH PRN (06:07)
[2018-04-13] MEDS ORDERED: Hydrocortisone Rectal 2.5% CRM 28 GM TUBE RC PRN (06:07)
[2018-04-13] MEDS: Aspirin 325 MG TABLET PO SCH (09:33)
[2018-04-13] MEDS: Acetaminophen 325 MG TABLET PO PRN (09:39)
[2018-04-13 11:19] LABS: ABG Base Excess 5 mEq/L (-2 to 3); ABG HCO3 30 mEq/L (21-27); ABG Oxygen Saturation 88 % (95-98); ABG PCO2 44 mmHg (35-45); ABG PH 7.44 pH Units (7.32-7.45); ABG PO2 53 mmHg (85-104); ABG TCO2 31 mEq/L (20-26)
--- NOTE | 2018-04-13 12:20 | Pre-Sedation Evaluation ---
Pre-sedation evaluation - Pre-sedation checklist Date of procedure: 04/13/18 Procedure: Bronchoscopy Recent Vitals: Last Vital Signs Temp 97.6 F 04/13/18 11:02 Pulse 92 04/13/18 11:02 Resp 18 04/13/18 11:20 BP 113/70 04/13/18 11:02 Pulse Ox 91 04/13/18 11:20 Dietary Status: NPO 6 hours prior to procedure Possible difficult airway: No ASA Classification *see protocol: CLASS III-Severe systemic disease Cardiac Registry (Cardio Only) - Functional Capacity - Clincal Frailty Scale
[2018-04-13] MEDS ORDERED: *HR* Midazolam HCl 5 MG/5 ML VIAL IVP ONE ×2 (12:21→12:38)
[2018-04-13] MEDS ORDERED: Albuterol 2.5 MG/3 ML NEBULIZER IH ONE (12:21)
[2018-04-13] MEDS ORDERED: Tetracaine/Benzocaine/Butamben 1 SPRAY AEROSOL MM ONE (12:21)
[2018-04-13] MEDS ORDERED: Lidocaine Viscous Oral Soln 15 ML SOLUTION MM ONE (12:21)
[2018-04-13] MEDS ORDERED: *HR* FentaNYL (PF) 100 MCG/2 ML VIAL IVP ONE (12:21)
[2018-04-13] MEDS ORDERED: *HR* EPINEPHrine 1 MG/10 ML SYRINGE INTRATRACH PRN (12:21)
[2018-04-13] MEDS ORDERED: *HR* FentaNYL (PF) 100 MCG/2 ML VIAL ONE (12:38)
[2018-04-13] MEDS ORDERED: Lidocaine Viscous Oral Soln 15 ML SOLUTION ONE (12:39)
[2018-04-13] MEDS: 0.9 % Sodium Chloride 1,000 ML IVC SCH (12:41)
--- NOTE | 2018-04-13 13:29 | Pulmonology Consult Note ---
<Nayely Rivera M - Last Filed: 04/13/18 13:59> Date of Encounter: 04/13/18 Medications and Allergies Ergocalciferol (VITAMIN D2) [Vitamin D] 400 unit PO BID 02/19/18 [History] Vit A/C/E AC/Znox/Cupric Oxide [Eye Vitamin-Minerals Tablet] 1 tab PO DAILY [History] Aspirin 325 mg PO BID #60 tablet 02/24/18 [Rx] Albuterol Sulfate [Proair Hfa] 2 puff IH Q4-6H PRN 03/01/18 [History] Citalopram [CeleXA] 20 mg PO DAILY 03/01/18 [History] Metoprolol [Lopressor] 12.5 mg PO BID 03/01/18 [History] Bethanechol Chloride [Urecholine] 10 mg PO TID 04/13/18 [History] Budesonide/Formoterol 80/4.5 [Symbicort 80/4.5] 2 puff PO BID 04/13/18 [History ] Ferrous Sulfate [Iron] 325 mg PO DAILY 04/13/18 [History] Ipratropium/Albuterol Neb [Duoneb] 3 ml IH Q6HR 04/13/18 [History] Oxycodone HCl [Oxaydo] 5 mg PO Q6H PRN 04/13/18 [History] Tamsulosin HCl [Flomax] 0.4 mg PO DAILY 04/13/18 [History] amLODIPine [Norvasc] 5 mg PO DAILY 04/13/18 [History] diazePAM [Valium] 5 mg PO DAILY PRN 04/13/18 [History] 3 Allergy/AdvReac Type Severity Reaction Status Date / Time No Known Allergies Allergy Verified 02/19/18 15:50 All Systems: The remainder of the systems were reviewed and are negative Physical Examination Vital Signs: Vital Signs, Last 4 Hours Temp Pulse Resp BP Pulse Ox 04/13/18 13:28 98.8 F 72 23 115/57 100 04/13/18 13:10 85 20 102/53 98 04/13/18 13:05 94 24 117/52 94 04/13/18 13:00 93 24 132/57 93 04/13/18 12:50 88 29 119/62 96 04/13/18 12:38 89 22 128/58 93 04/13/18 11:20 18 91 04/13/18 11:02 97.6 F 92 18 113/70 86 Results - Laboratory Findings CBC and BMP: 04/12/18 07:37 04/12/18 07:37 ABG ABG pH 7.44 pH Units (7.32-7.45) 04/13/18 11:16 ABG pCO2 44 mmHg (35-45) 04/13/18 11:16 ABG pO2 53 mmHg (85-104) L 04/13/18 11:16 ABG O2 Saturation 88 % (95-98) L 04/13/18 11:16 PT/INR, D-dimer PT 12.9 Seconds (9.4-12.1) H 04/11/18 17:11 Abnormal lab findings: Abnormal lab results RBC 2.72 M/mcL (3.82-4.97) L 04/12/18 07:37 Hgb 8.1 g/dL (11.5-15.4) L 04/12/18 07:37 Hct 25.9 % (35.3-44.9) L 04/12/18 07:37 MCHC 31.3 g/dL (31.6-35.5) L 04/12/18 07:37 RDW 16.7 % (11.5-14.5) H 04/12/18 07:37 Neutrophils # 10.0 K/mcL (1.6-8.9) H 04/12/18 07:37 PT 12.9 Seconds (9.4-12.1) H 04/11/18 17:11 ABG pO2 53 mmHg (85-104) L 04/13/18 11:16 ABG HCO3 30 mEq/L (21-27) H 04/13/18 11:16 ABG Total CO2 31 mEq/L (20-26) H 04/13/18 11:16 ABG O2 Saturation 88 % (95-98) L 04/13/18 11:16 ABG Base Excess 5 mEq/L (-2 to 3) H 04/13/18 11:16 VBG pH 7.49 pH Units (7.32-7.42) H 04/11/18 17:38 VBG pCO2 36 mmHg (41-51) L 04/11/18 17:38 VBG pO2 104 mmHg (25-50) H 04/11/18 17:38 Carbon Dioxide 31 mEq/L (23-29) H 04/12/18 07:37 BUN 29 mg/dL (8-23) H 04/12/18 07:37 Creatinine 1.26 mg/dL (0.60-1.20) H 04/12/18 07:37 Est GFR ( Amer) 49 (> 60) L 04/12/18 07:37 Est GFR (Non-Af Amer) 40 (> 60) L 04/12/18 07:37 Glucose 123 mg/dL (70-105) H 04/12/18 07:37 B-Natriuretic Peptide 274 pg/mL (Less than 100) H 04/11/18 17:26 Albumin 3.3 g/dL (3.5-5.7) L 04/11/18 17:11 Albumin/Globulin Ratio 0.9 (1.1-2.2) L 04/11/18 17:11 Urine Protein 30 mg/dL (Neg-Trace) H 04/11/18 18:25 Urine Ketones 15 mg/dL (Negative) H 04/11/18 18:25 - Clinical Findings Intake & Output: Intake & Output 04/12/18 04/13/18 04/13/18 23:59 07:59 15:59 Intake Total 0 / 0 0 / 0 120 / 120 Output Total 200 / 200 0 / 0 550 / 550 Balance -200 / -200 0 / 0 -430 / -430 Consult Discharge Plan - Plan Referrals: Maria Eugenia English MD [Primary Care Provider] - - Attending Attestation I examined this patient and my medical decision-making was reviewed with the Resident Physician. I agree with the documented findings, disposition and treatment plan as described except to the extent set forth below. Patient seen and examined. Labs, radiology, chart personally reviewed. 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 I have the reviewed x-ray personally and then talk to the son who is power of commercial real estate attorney and explained to him about the procedure and all the risks, alternative, benefits and the fact that she is DNR/DNI she is high risk and he agreed the her condition deteriorate a temporary intubation is acceptable. Patient will need bronchodilators and also just physical therapy. A bronchoscopy is recommended. The procedure , risks, benefits, complications, and expected outcomes have been reviewed. Benefits of diagnosis, as well as risks to include bleeding, infection, pneumothorax which may require surgical intervention, and in a small population. The patient is aware that sometimes test is nondiagnostic. Discussed with patient and agrees to proceed. Thank you for consultation <Kunal Reynolds - Last Filed: 04/13/18 16:03> Date of Encounter: 04/13/18 Time of Encounter: 13:29 Assessment and Plan (1) Acute and chronic respiratory failure with hypoxia Current Visit: Yes Status: Acute CXR from this morning revealed left lung volume loss secondary to central mucous plugging and multifocal consolidation. Pt went for emergent bronchoscopy after desatting to 85% on 12lpm O2, multiple mucous plugs removed. Follow up CXR revealed significantly improved aeration of the left lung, with remaining mild interstitial opacity Continue BiPap use Duonebs scheduled [id number] Continue supplemental O2 Chest percussive therapy (2) COPD (chronic obstructive pulmonary disease) Current Visit: Yes Status: Chronic Management as above along with continue use of home Symbicort Qualifiers: COPD type: emphysema Emphysema type: unspecified Qualified Code(s): J43.9 - Emphysema, unspecified (3) Pulmonary hypertension Current Visit: No Status: Chronic History of WHO class 3 pulmonary HTN, secondary to COPD On 5lpm O2 at home History of Present Illness Consult date: 04/13/18 Requesting physician: Ousmane Scott Reason for consult: COPD, hypoxemia Chief complaint: SOB History of present illness: Ms. King is a 87F with PMH of pulmonary hypertension, CAD COPD, anxiety, CHF and pneumonia. She presented to the ED on 04/11 and was admitted for a fall. Head CT in the ED revealed no acute abnormalities. EKG and troponin were unremarkable at this time. Patient was initially found to be more confused than her basline, not alert to place and time. It was reported by the primary team that the pt had an SpO2 this AM of 90% on 5lpm via Oxy mask. Pt began decompensating with SpO2 dropping to 85% and below despite O2 therapy at 12lpm. ABG revealed hypoxemia with pO2 of 53. X-ray revealed central mucous plugging and consolidation. Dr. Rivera spoke with the pt's son who is POA, and discussed risks, alternatives, and benefits of bronchoscopy. Past Med Surg Social Fam HX - Past Medical History Medical history: aortic aneurysm, arthritis, CHF, COPD, CVA, hypertension, other Additional medical history: Left ankle fracture, left hip fracture, left wrist fracture Psychiatric history: anxiety, depression - Past Surgical History Surgical History: carotid endarterectomy, cataract Additional surgical history: broken ankle - Social History Smoking Status: Former smoker Smokeless Tobacco Status: No Alcohol use: none Drug use: none - Family History Mother Adopted: No Living Status: Hx Family Cardiac Disorders: Yes (mother) Hx Family Respiratory Disorders: No Hx Family Cancer: No Hx Family GI Disorders: No Hx Family Endocrine Disorder: No Hx Family Neuromuscular Disorders: No Hx Family Neurologic Disorders: No Hx Family HEENT Disorders: No Hx Family Autoimmune Disorders: No ROS unobtainable: due to mental status All Systems: The remainder of the systems were reviewed and are negative Physical Examination Vital Signs: Vital Signs, Last 4 Hours Temp Pulse Resp BP Pulse Ox 04/13/18 13:10 85 20 102/53 98 04/13/18 13:05 94 24 117/52 94 04/13/18 13:00 93 24 132/57 93 04/13/18 12:50 88 29 119/62 96 04/13/18 12:38 89 22 128/58 93 04/13/18 11:20 18 91 04/13/18 11:02 97.6 F 92 18 113/70 86 04/13/18 09:48 90 General appearance: lethargic Eyes: nonicteric ENT: oropharynx moist Neck: supple, no JVD Effort: mildly labored Inspection: normal Auscultation: bilateral: diminished breath sounds (left > right ), wheezes Percussion: bilateral: not dull Tactile fremitus: bilateral: normal Cardiovascular: regular rate and rhythm Gastrointestinal: soft, non-tender, non-distended Integumentary: normal Extremities: no cyanosis, no edema, no clubbing, pink and warm Musculoskeletal: no deformities Gait: normal posture non-focal exam mood appropriate, affect normal Results - Laboratory Findings CBC and BMP: 04/12/18 07:37 04/12/18 07:37 ABG ABG pH 7.44 pH Units (7.32-7.45) 04/13/18 11:16 ABG pCO2 44 mmHg (35-45) 04/13/18 11:16 ABG pO2 53 mmHg (85-104) L 04/13/18 11:16 ABG O2 Saturation 88 % (95-98) L 04/13/18 11:16 PT/INR, D-dimer PT 12.9 Seconds (9.4-12.1) H 04/11/18 17:11 Abnormal lab findings: Abnormal lab results RBC 2.72 M/mcL (3.82-4.97) L 04/12/18 07:37 Hgb 8.1 g/dL (11.5-15.4) L 04/12/18 07:37 Hct 25.9 % (35.3-44.9) L 04/12/18 07:37 MCHC 31.3 g/dL (31.6-35.5) L 04/12/18 07:37 RDW 16.7 % (11.5-14.5) H 04/12/18 07:37 Neutrophils # 10.0 K/mcL (1.6-8.9) H 04/12/18 07:37 PT 12.9 Seconds (9.4-12.1) H 04/11/18 17:11 ABG pO2 53 mmHg (85-104) L 04/13/18 11:16 ABG HCO3 30 mEq/L (21-27) H 04/13/18 11:16 ABG Total CO2 31 mEq/L (20-26) H 04/13/18 11:16 ABG O2 Saturation 88 % (95-98) L 04/13/18 11:16 ABG Base Excess 5 mEq/L (-2 to 3) H 04/13/18 11:16 VBG pH 7.49 pH Units (7.32-7.42) H 04/11/18 17:38 VBG pCO2 36 mmHg (41-51) L 04/11/18 17:38 VBG pO2 104 mmHg (25-50) H 04/11/18 17:38 Carbon Dioxide 31 mEq/L (23-29) H 04/12/18 07:37 BUN 29 mg/dL (8-23) H 04/12/18 07:37 Creatinine 1.26 mg/dL (0.60-1.20) H 04/12/18 07:37 Est GFR ( Amer) 49 (> 60) L 04/12/18 07:37 Est GFR (Non-Af Amer) 40 (> 60) L 04/12/18 07:37 Glucose 123 mg/dL (70-105) H 04/12/18 07:37 B-Natriuretic Peptide 274 pg/mL (Less than 100) H 04/11/18 17:26 Albumin 3.3 g/dL (3.5-5.7) L 04/11/18 17:11 Albumin/Globulin Ratio 0.9 (1.1-2.2) L 04/11/18 17:11 Urine Protein 30 mg/dL (Neg-Trace) H 04/11/18 18:25 Urine Ketones 15 mg/dL (Negative) H 04/11/18 18:25 - Diagnostic Findings Chest x-ray: report reviewed, image reviewed - Clinical Findings Intake & Output: Intake & Output 04/12/18 04/13/18 04/13/18 23:59 07:59 15:59 Intake Total 0 / 0 0 / 0 120 / 120 Output Total 200 / 200 0 / 0 550 / 550 Balance -200 / -200 0 / 0 -430 / -430
--- NOTE | 2018-04-13 14:56 | Internal Med Progress Note ---
<Ousmane Scott - Last Filed: 04/13/18 16:23> Hospitalist Progress Note - Encounter Date of Encounter: 04/13/18 - Exam Vitals: Temp Pulse Resp BP Pulse Ox 98.8 F 72 23 115/57 100 04/13/18 13:28 04/13/18 13:28 04/13/18 13:28 04/13/18 13:28 04/13/18 13:28 - Assessment and Plan (1) Acute and chronic respiratory failure with hypoxia Current Visit: Yes Status: Acute (2) Mucus plugging of bronchi Current Visit: Yes Status: Acute (3) COPD (chronic obstructive pulmonary disease) Current Visit: Yes Status: Chronic (4) Anxiety and depression Current Visit: Yes Status: Chronic (5) Hematoma Current Visit: Yes Status: Acute (6) Diastolic CHF Current Visit: Yes Status: Acute (7) Fall Current Visit: Yes Status: Acute (8) Decubitus ulcer of sacral region, stage 1 Current Visit: Yes Status: Acute (9) Chronic respiratory failure with hypoxia Current Visit: Yes Status: Chronic (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 Current Visit: Yes Status: Chronic - Time Spent with Patient Total time spent is greater than 50% in coordination of care (as documented) at patient's floor/unit and/or counseling patient: Internal Medicine: Result - Labs CBC & Chem 7: 04/12/18 07:37 04/12/18 07:37 - ABG Interpretation ABG results: ABG ABG pH 7.44 pH Units (7.32-7.45) 04/13/18 11:16 ABG pCO2 44 mmHg (35-45) 04/13/18 11:16 ABG pO2 53 mmHg (85-104) L 04/13/18 11:16 ABG O2 Saturation 88 % (95-98) L 04/13/18 11:16 PT/INR, D-dimer PT 12.9 Seconds (9.4-12.1) H 04/11/18 17:11 - Impressions Impressions Chest X-Ray 04/13/18 11:09 IMPRESSION: New since the prior exam is left lung volume loss and multifocal consolidation. Central mucous plugging may result in atelectasis given the rapid changes since the prior day. The findings were sent to the Radiology Results Communication Center at 11:33 am on 04/13/2018to be communicated to a licensed caregiver. D/ / 04/13/2018 11:36:13 Ji Schilling MD / [facility] Interpreting Provider: Ji Schilling MD Chest X-Ray 04/13/18 14:06 IMPRESSION: Improved aeration of the left lung. D/ / 04/13/2018 14:59:11 Shiva Morrissey MD / [facility] Interpreting Provider: Shiva Morrissey MD Consult Discharge Plan - Plan Referrals: Maria Eugenia English MD [Primary Care Provider] - - Attending Attestation I examined this patient and my medical decision-making was reviewed with the Resident Physician on 04/13/18. I agree with the documented findings, disposition and treatment plan as described except to the extent set forth below. Ms Jensen is currently admitted for fall and acute on chronic hypoxic resp failure. She remains moderate to high risk due to potential for worsening clinical status. Ms Jensen is having more difficulty breathing today and is more hypoxic. She is requiring bipap now. She has xray with atelectasis of L side and probable mucus plugging. No fever or chills. Denies pain. Exam alert Mod respiratory distress Mucus membranes dry Heart reg and hard to hear Lungs with rhonchi bilaterally. Abd soft I/P 1. Acute on chronic hypoxic resp failure - ABG shows pO2 of 53 on 12 liters. Taken to bronch. 2. Fall Further diagnoses and plan as above. <Ehsan Trinh - Last Filed: 04/13/18 18:05> Hospitalist Progress Note - Encounter Date of Encounter: 04/13/18 Time of Encounter: 10:45 - Subjective Interval History: Ms. jensen is a 87 year-old female with a past medical history of grade 3 pulmonary hypertension, CAD COPD, anxiety, CHF and pneumonia is admitted to the floor because of an episode of fall. Initial workup in the ED was negative for any midline shift, intracranial mass. Her EKG and troponin values were unremarkable. Patient was initially found to be more confused, not alert to place and time however the confusion has resolved as of today. Patient is on 5L of oxygen for her pulmonary HTN, and is on Symbicort and albuterol for COPD. Of note, patient was recently, admitted to the ICU because of acute and chronic respiratory failure, pneumonia , was on BiPAP and underwent a course of Vanc an Zosyn and [facility] to the [place] [facility] with BiPAP qualification. Talking to to the Daughter it Seems That Patient has not Been Using Her BiPAP at the Longterm because the mask doesn't fit her properly. This AM patient was initially on 5 L of oxygen mask satting at 90%, however she suddenly decompensated and was found to be satting at 85% on 12 L of oxymask, her ABG showed moderate hypoxemia (pO2 : 53%). Her x-ray showed central mucous plugging and focal consolidation . Patient was taken for emergent bronchoscopy and she tolerated the procedure well. - Exam Vitals: Temp Pulse Resp BP Pulse Ox 98.8 F 72 23 115/57 100 04/13/18 13:28 04/13/18 13:28 04/13/18 13:28 04/13/18 13:28 04/13/18 13:28 Exam: - Gen: A&O *3, no acute distress, afebrile. -Respiratory: decreased breath sounds. Mild wheezing no rales or rhonchi. s/p bronchoscopy, on BiPAP - CV: RRR, no gallop or murmur.or rubs GI: Abdomen is soft and not tender. There is no palpable mass or visceromegaly. Neuro: There is no focal deficits. - Assessment and Plan (1) Acute and chronic respiratory failure with hypoxia Current Visit: Yes Status: Acute Assessment and Plan: - secondary to her Hx of COPD, patient was admitted to the ICU not too long ago for pneumonia-was on BiPAP and Abx - Her CXR this AM was positive for mucous plugging and atlectesis - Patient is s/p Bronchoscopy, Duonebs q4h, Currently on BiPAP - Continue to monitor (2) Encephalopathy Current Visit: Yes Status: Acute Assessment and Plan: - likely multifactorial in nature. Patient has a Hx of Acute on chronic resp failure, currently on 5L of O2 at home. She also had an episode of fall with unremarkable workup in the ED. - one examination during admission she had right occipital hematoma which seems to be resolving - her most recent showed that was moderately hypoxemia with pH : 7.44, pO2: 53, pCO2: 44. s/p bronchscopy and currently on BiPAP - on Physical exam today she was Alert to self, place and time. - continue to monitor (3) COPD (chronic obstructive pulmonary disease) Current Visit: Yes Status: Chronic Assessment and Plan: - Patient has a history of COPD. -Takes Symbicort and albuterol, on 5L of O2 at home - Currently on BiPAP, Duonebs q4h, continue to monitor (4) Pulmonary hypertension Current Visit: Yes Status: Acute Assessment and Plan: - Patient has a Hx of group III Pulm HTN likely due to her Hx of COPD. she's on 5 L of suppl oxygen at home - Her most recent Echo from the last admission to the ICU showed severe pulmonary hypertension with RVSP of 57-62. - She may benefit from left heart catherization as an out patient -Continue Duonebs and symbicort, f/u Pulmonology as an outpatient (5) CKD (chronic kidney disease) Current Visit: Yes Status: Acute Assessment and Plan: - patient has a Hx of stage 3 CKD, GFR : 40 .Her GFR has been slowly worsening since 2015. - baseline Cr is ~1.3 and patient currently at baseline - avoid nephrotoxic agents, renally dose medications (6) Congestive heart failure Current Visit: Yes Status: Acute Assessment and Plan: -Patient with history of CHF, her last echo showed mild diastolic dysfunction with EF of 65% with severe pulmonary hypertension. -On physical exam, she does not appear to be volume overloaded. no JVDs and S3 appreciated. -Deluna fluid restriction, strict I's/ O's -Continue BiPAP, fine control of diuretics due to Hx of Stage 3 CKD. (7) Anxiety and depression Current Visit: Yes Status: Chronic Assessment and Plan: - Patient is a history of anxiety and depression -Continue home meds Celexa. (8) Constipation Current Visit: Yes Status: Acute Assessment and Plan: - Likely due to her history of taking pain medication for pain control of her hip surgery -Currently resolved, she's on ducosate and had 1 episode of bowel movement yesterday and today DVT Prophylaxis: Subcutaneous heparin. - Time Spent with Patient Total time spent is greater than 50% in coordination of care (as documented) at patient's floor/unit and/or counseling patient: Internal Medicine: Result - Labs CBC & Chem 7: 04/12/18 07:37 04/12/18 07:37 - ABG Interpretation ABG results: ABG ABG pH 7.44 pH Units (7.32-7.45) 04/13/18 11:16 ABG pCO2 44 mmHg (35-45) 04/13/18 11:16 ABG pO2 53 mmHg (85-104) L 04/13/18 11:16 ABG O2 Saturation 88 % (95-98) L 04/13/18 11:16 PT/INR, D-dimer PT 12.9 Seconds (9.4-12.1) H 04/11/18 17:11 - Impressions Impressions Chest X-Ray 04/13/18 11:09 IMPRESSION: New since the prior exam is left lung volume loss and multifocal consolidation. Central mucous plugging may result in atelectasis given the rapid changes since the prior day. The findings were sent to the Radiology Results Communication Center at 11:33 am on 04/13/2018to be communicated to a licensed caregiver. D/ / 04/13/2018 11:36:13 Ji Schilling MD / [facility] Interpreting Provider: Ji Schilling MD Chest X-Ray 04/13/18 14:06 IMPRESSION: Improved aeration of the left lung. D/ / Shiva Morrissey MD / Shiva Morrissey MD Interpreting Provider: Shiva Morrissey MD <Ousmane Scott - Last Filed: 04/13/18 16:23> (3) COPD (chronic obstructive pulmonary disease) Qualifiers: COPD type: emphysema Emphysema type: panlobular Qualified Code(s): J43.1 - Panlobular emphysema (6) Diastolic CHF Qualifiers: Heart failure chronicity: chronic Qualified Code(s): I50.32 - Chronic diastolic (congestive) heart failure (7) Fall Qualifiers: Encounter type: subsequent encounter Qualified Code(s): W19.XXXD - Unspecified fall, subsequent encounter <Ehsan Trinh - Last Filed: 04/13/18 18:05> (3) COPD (chronic obstructive pulmonary disease) Qualifiers: COPD type: emphysema Emphysema type: panlobular Qualified Code(s): J43.1 - Panlobular emphysema (8) Constipation Qualifiers: Constipation type: unspecified constipation type Qualified Code(s): K59.00 - Constipation, unspecified
[2018-04-13] MEDS: Ipratropium/Albuterol Neb 3 ML IH SCH ×2 (16:24→22:16)
--- NOTE | 2018-04-13 17:37 | Electrocardiograph Report ---
[address] [address] Test Date: 2018-04-11 Pat Name: Luh King Department: EXAM1 Room: 3A Gender: F Biomedical Instrument Technician: : [id number] Requested By: [id number] Order Number: [id number] Reading MD: Eneida Quinonez Measurements Intervals [place] Rate: 86 P: 26 MO: 137 QRS: -22 QRSD: 109 T: 77 QT: 415 QTc: 491 Interpretive Statements Sinus rhythm Artifact Electronically Signed On 04-13-2018 17:35:22 EDT by Eneida Quinonez
--- NOTE | 2018-04-13 17:38 | Electrocardiograph Report ---
[place] [address] Test Date: 2018-04-11 Pat Name: Luh King Department: EXAM1 Room: 3A Gender: F Cna Gna: : 1930 Requested By: Swapnil Cantrell Order Number: [id number] Reading MD: Eneida Quinonez Measurements Intervals [place] Rate: 93 P: 79 GA: 149 QRS: -27 QRSD: 117 T: 70 QT: 376 QTc: 468 Interpretive Statements Sinus rhythm Intraventricular conduction delay Artifact Electronically Signed On 04-13-2018 17:36:41 EDT by Eneida Quinonez
[2018-04-13] MEDS: Ondansetron 4 MG/2 ML VIAL IVP PRN (22:31)
[2018-04-14] MEDS: Ipratropium/Albuterol Neb 3 ML IH SCH (04:17)
[2018-04-14 05:04] LABS: Basophils % 0.2 %; Eosinophils % 0.1 %; Hematocrit 25.3 % (35.3-44.9); Hemoglobin 7.9 g/dL (11.5-15.4); Immature Granulocytes % 1.9 % (0-4); Lymphocytes # 1.1 K/mcL (0.6-4.6); Lymphocytes % 8.1 %; Mean Corpuscular HGB Conc 31.2 g/dL (31.6-35.5); Mean Corpuscular Hemoglobin 29.9 pg (28.0-33.3); Mean Corpuscular Volume 95.8 fL (83.0-100.0); Mean Platelet Volume 12.1 fL (9.4-12.4); Monocytes # 1.4 K/mcL (0.0-1.3); Monocytes % 10.2 %; Neutrophils # 10.7 K/mcL (1.6-8.9); Platelet Count 151 K/mcL (140-400); Red Blood Count 2.64 M/mcL (3.82-4.97); Red Cell Distribution Width 16.7 % (11.5-14.5); Segmented Neutrophils % 79.5 %
[2018-04-14] MEDS: *HR* Heparin 5,000 UNIT/ML VIAL SQ SCH ×2 (05:34→13:28)
--- NOTE | 2018-04-14 08:25 | Internal Med Progress Note ---
<Ehsan Trinh - Last Filed: 04/14/18 18:05> Hospitalist Progress Note - Encounter Date of Encounter: 04/14/18 Time of Encounter: 09:00 - Subjective Interval History: 04/14 Patient's sPO2 dropped overnight. A follow up chest x-ray was ordered which showed opacities associated with return of mucous plugging. Pulmonology recommended Mucomyst to help her with mucous plugging in conjunction with chest percussive therapy. Patient is also been transitioned from DuoNeb's to albuterol every 6 hours. 04/13 Ms. jensen is a 87 year-old female with a past medical history of grade 3 pulmonary hypertension, CAD COPD, anxiety, CHF and pneumonia is admitted to the floor because of an episode of fall. Initial workup in the ED was negative for any midline shift, intracranial mass. Her EKG and troponin values were unremarkable. Patient was initially found to be more confused, not alert to place and time however the confusion has resolved as of today. Patient is on 5L of oxygen for her pulmonary HTN, and is on Symbicort and albuterol for COPD. Of note, patient was recently, admitted to the ICU because of acute and chronic respiratory failure, pneumonia , was on BiPAP and underwent a course of Vanc an Zosyn and discharge to the halfway with BiPAP qualification. Talking to to the Daughter it Seems That Patient has not Been Using Her BiPAP at the [facility] because the mask doesn't fit her properly. This AM patient was initially on 5 L of oxygen mask satting at 90%, however she suddenly decompensated and was found to be satting at 85% on 12 L of oxymask, her ABG showed moderate hypoxemia (pO2 : 53%). Her x-ray showed central mucous plugging and focal consolidation . Patient was taken for emergent bronchoscopy and she tolerated the procedure well. - Exam Vitals: Temp Pulse Resp BP Pulse Ox 99.1 F 104 18 122/71 90 04/14/18 05:29 04/14/18 05:29 04/14/18 05:29 04/14/18 05:29 04/14/18 05:29 Exam: - Gen: A&O *3, no acute distress, afebrile. -Respiratory: decreased breath sounds. Mild wheezing no rales or rhonchi. s/p bronchoscopy, on BiPAP - CV: RRR, no gallop or murmur.or rubs GI: Abdomen is soft and not tender. There is no palpable mass or visceromegaly. Neuro: There is no focal deficits. - Assessment and Plan (1) Acute and chronic respiratory failure with hypoxia Current Visit: Yes Status: Acute Assessment and Plan: - secondary to her Hx of COPD, patient was admitted to the ICU not too long ago for pneumonia-was on BiPAP and Abx - Repeat chest x-ray this a.m. showed new opacity to the left mid to lower lung zones, - Likely on albuterol q6h, Mucomyst nebs q6h , on 7L oxygen mask satting at 91%. - Chest percussive therapy pending (2) Encephalopathy Current Visit: Yes Status: Acute Assessment and Plan: - likely multifactorial in nature. Patient has a Hx of Acute on chronic resp failure, currently on 5L of O2 at home. She also had an episode of fall with unremarkable workup in the ED. - one examination during admission she had right occipital hematoma which seems to be resolving - s/p bronchscopy and currently on 7L satting at 91% - on Physical exam today she was not Alert to place and time. - continue to monitor (3) COPD (chronic obstructive pulmonary disease) Current Visit: Yes Status: Chronic Assessment and Plan: - Patient has a history of COPD. -Takes Symbicort and albuterol, on 5L of O2 at home - Currently on mucomyst nebs q6h, albuterol nebs q6h, recommended BiPAP use -continue to monitor (4) Pulmonary hypertension Current Visit: Yes Status: Acute Assessment and Plan: - Patient has a Hx of group III Pulm HTN likely due to her Hx of COPD. she's on 5 L of suppl oxygen at home - Her most recent Echo from the last admission to the ICU showed severe pulmonary hypertension with RVSP of 57-62. - She may benefit from left heart catherization as an out patient - f/u Pulmonology as an outpatient for management (5) CKD (chronic kidney disease) Current Visit: Yes Status: Acute Assessment and Plan: - patient has a Hx of stage 3 CKD, GFR : 40 .Her GFR has been slowly worsening since 2015. - baseline Cr is ~1.3 and patient currently at baseline - avoid nephrotoxic agents, renally dose medications (6) Congestive heart failure Current Visit: Yes Status: Acute Assessment and Plan: -Patient with history of CHF, her last echo showed mild diastolic dysfunction with EF of 65% with severe pulmonary hypertension. -On physical exam, she does not appear to be volume overloaded. no JVDs and S3 appreciated. -Deluna fluid restriction, strict I's/ O's Current Is/Os: 1000/500 -Recommended BiPAP, fine control of diuretics due to Hx of Stage 3 CKD. (7) Anxiety and depression Current Visit: Yes Status: Chronic Assessment and Plan: - Patient is a history of anxiety and depression -Continue home meds Celexa. DVT Prophylaxis: Subcutaneous heparin. - Time Spent with Patient Total time spent is greater than 50% in coordination of care (as documented) at patient's floor/unit and/or counseling patient: Internal Medicine: Result - Labs CBC & Chem 7: 04/14/18 04:25 04/12/18 07:37 Labs: Short CBC 04/14/18 Range/Units 04:25 WBC 13.5 H (4.3-11.1) K/mcL Hgb 7.9 L (11.5-15.4) g/dL Hct 25.3 L (35.3-44.9) % Plt Count 151 (140-400) K/mcL Neutrophils # 10.7 H (1.6-8.9) K/mcL - ABG Interpretation ABG results: ABG ABG pH 7.44 pH Units (7.32-7.45) 04/13/18 11:16 ABG pCO2 44 mmHg (35-45) 04/13/18 11:16 ABG pO2 53 mmHg (85-104) L 04/13/18 11:16 ABG O2 Saturation 88 % (95-98) L 04/13/18 11:16 PT/INR, D-dimer PT 12.9 Seconds (9.4-12.1) H 04/11/18 17:11 - Impressions Impressions Chest X-Ray 04/13/18 11:09 IMPRESSION: New since the prior exam is left lung volume loss and multifocal consolidation. Central mucous plugging may result in atelectasis given the rapid changes since the prior day. The findings were sent to the Radiology Results Communication Center at 11:33 am on 04/13/2018to be communicated to a licensed caregiver. D/ / 04/13/2018 11:36:13 Ji Schilling MD / [facility] Interpreting Provider: Ji Schilling MD Chest X-Ray 04/13/18 14:06 IMPRESSION: Improved aeration of the left lung. D/ / 04/13/2018 14:59:11 Shiva Morrissey MD / [facility] Interpreting Provider: Shiva Morrissey MD Consult Discharge Plan - Plan Referrals: Maria Eugenia English MD [Primary Care Provider] - <Ousmane Scott - Last Filed: 04/14/18 18:35> Hospitalist Progress Note - Encounter Date of Encounter: 04/14/18 - Exam Vitals: Temp Pulse Resp BP Pulse Ox 98.4 F 88 16 123/75 91 04/14/18 11:57 04/14/18 11:57 04/14/18 11:57 04/14/18 11:57 04/14/18 15:57 - Assessment and Plan (1) Acute and chronic respiratory failure with hypoxia Current Visit: Yes Status: Acute (2) Mucus plugging of bronchi Current Visit: Yes Status: Acute (3) COPD (chronic obstructive pulmonary disease) Current Visit: Yes Status: Chronic (4) Anxiety and depression Current Visit: Yes Status: Chronic (5) Hematoma Current Visit: Yes Status: Acute (6) Diastolic CHF Current Visit: Yes Status: Acute (7) Fall Current Visit: Yes Status: Acute (8) Decubitus ulcer of sacral region, stage 1 Current Visit: Yes Status: Acute (9) Chronic respiratory failure with hypoxia Current Visit: Yes Status: Chronic (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 Current Visit: Yes Status: Chronic (11) Acute metabolic encephalopathy Current Visit: Yes Status: Resolved (12) Anemia Current Visit: Yes Status: Chronic - Time Spent with Patient Total time spent is greater than 50% in coordination of care (as documented) at patient's floor/unit and/or counseling patient: Internal Medicine: Result - Labs CBC & Chem 7: 04/14/18 04:25 04/12/18 07:37 Labs: Short CBC 04/14/18 Range/Units 04:25 WBC 13.5 H (4.3-11.1) K/mcL Hgb 7.9 L (11.5-15.4) g/dL Hct 25.3 L (35.3-44.9) % Plt Count 151 (140-400) K/mcL Neutrophils # 10.7 H (1.6-8.9) K/mcL - ABG Interpretation ABG results: ABG ABG pH 7.44 pH Units (7.32-7.45) 04/13/18 11:16 ABG pCO2 44 mmHg (35-45) 04/13/18 11:16 ABG pO2 53 mmHg (85-104) L 04/13/18 11:16 ABG O2 Saturation 88 % (95-98) L 04/13/18 11:16 PT/INR, D-dimer PT 12.9 Seconds (9.4-12.1) H 04/11/18 17:11 - Impressions Impressions Chest X-Ray 04/13/18 14:06 IMPRESSION: Improved aeration of the left lung. D/ / 04/13/2018 14:59:11 Shiva Morrissey MD / [facility] Interpreting Provider: Shiva Morrissey MD Chest X-Ray 04/14/18 05:54 IMPRESSION: New opacity to the left mid to lower lung zones which may relate to pleural effusion and superimposed atelectasis or infiltrate. D/ / 04/14/2018 08:35:36 Stephen Shi MD / [facility] Interpreting Provider: Stephen Shi MD - Attending Attestation I examined this patient and my medical decision-making was reviewed with the Resident Physician on 04/14/18. I agree with the documented findings, disposition and treatment plan as described except to the extent set forth below. Ms Jensen has been admitted due to fall. She has developed acute on chronic resp failure and mucus plugging. She remains moderate to high risk due to potential for worsening clinical status. Ms Fernando is still having a lot of dyspnea today. No fever or chills at this time. Congested again on L side. Unable to cough it up much. Exam Alert. Moderate respiratory distress. Mucus membranes dry Heart distant Rhonchi bilaterally - L greater than R Abd soft I/P 1. Resp failure 2. Mucus plugging. Appreciate pulm help - mucolytic, percussion Further diagnoses and plan as above. <Ehsan Trinh - Last Filed: 04/14/18 18:05> (3) COPD (chronic obstructive pulmonary disease) Qualifiers: COPD type: emphysema Emphysema type: panlobular Qualified Code(s): J43.1 - Panlobular emphysema <Ousmane Scott - Last Filed: 04/14/18 18:35> (3) COPD (chronic obstructive pulmonary disease) Qualifiers: COPD type: emphysema Emphysema type: panlobular Qualified Code(s): J43.1 - Panlobular emphysema (6) Diastolic CHF Qualifiers: Heart failure chronicity: chronic Qualified Code(s): I50.32 - Chronic diastolic (congestive) heart failure (7) Fall Qualifiers: Encounter type: subsequent encounter Qualified Code(s): W19.XXXD - Unspecified fall, subsequent encounter (12) Anemia Qualifiers: Anemia type: other cause Other causes of anemia: chronic disease, other Qualified Code(s): D63.8 - Anemia in other chronic diseases classified elsewhere
--- NOTE | 2018-04-14 08:43 | Pulmonology Progress Note ---
<Kunal Reynolds Russ - Last Filed: 04/14/18 11:01> Date of Encounter: 04/14/18 Time of Encounter: 08:43 Assessment and Plan (1) Acute and chronic respiratory failure with hypoxia Current Visit: Yes Status: Acute CXR from 04/13 revealed left lung volume loss secondary to central mucous plugging and multifocal consolidation. Pt went for emergent bronchoscopy after desatting to 85% on 12lpm O2, multiple mucous plugs removed. Follow up CXR revealed significantly improved aeration of the left lung, with remaining mild interstitial opacity Pt desatted again overnight. Another CXR was ordered which revealed returned left lower lobe opacity likely associated with more mucous plugging. Mucous during bronchoscopy was noted to be very thick and dry Transition from Duonebs to Albuterol nebs q6h Mucomyst nebs q6h Continue BiPap use Continue supplemental O2 Chest percussive therapy will be very beneficial for this pt because of her mental status (2) COPD (chronic obstructive pulmonary disease) Current Visit: Yes Status: Chronic Management as above along with continued use of home Symbicort Qualifiers: COPD type: emphysema Emphysema type: panlobular Qualified Code(s): J43.1 - Panlobular emphysema (3) Pulmonary hypertension Current Visit: No Status: Chronic History of WHO class 3 pulmonary HTN, secondary to COPD On 5lpm O2 at home Subjective Principal diagnosis: Acute on Chronic Respiratory Failure Interval history: Ms. King is a 87F with PMH of pulmonary hypertension, CAD COPD, anxiety, CHF and pneumonia. She presented to the ED on 04/11 and was admitted for a fall. Head CT in the ED revealed no acute abnormalities. EKG and troponin were unremarkable at this time. Patient was initially found to be more confused than her basline, not alert to place and time. On 04/13 pt began decompensating with SpO2 dropping to 85% and below despite O2 therapy at 12lpm. ABG revealed hypoxemia with pO2 of 53. X-ray revealed central mucous plugging and consolidation. Emergent bronchoscopy revealed significant mucous plugging and very thick dry mucous primarily in the upper airway. Follow up CXR revealed greatly improved aeration of the left lung. Overnight it was reported that the pt's SpO2 dropped again and another CXR was ordered which showed opacities associated with returned mucous plugging. During the encounter with this provider, the pt was resting comfortably in bed with no acute complaints. She is pleasantly confused, not oriented to place, time, or events. She denies feeling the urge to cough. Remaining questions were not answered as pt was confused and trying to give away the remote/call button. Objective PUL Vital signs: Last Vital Signs Temp 99.1 F 04/14/18 05:29 Pulse 104 04/14/18 05:29 Resp 18 04/14/18 05:29 BP 122/71 04/14/18 05:29 Pulse Ox 90 04/14/18 05:29 General appearance: no acute distress, alert Eyes: nonicteric ENT: oropharynx dry Neck: supple, no JVD Effort: normal Auscultation: bilateral: diminished breath sounds (significantly more diminished on left ) Percussion: bilateral: not dull Tactile fremitus: bilateral: normal Cardiovascular: regular rate and rhythm Gastrointestinal: soft, non-tender, non-distended Integumentary: normal Extremities: no cyanosis, no edema, no clubbing, pink and warm Musculoskeletal: no deformities Gait: normal posture unable to assess due to mental status mood appropriate, affect normal Results - Laboratory Findings CBC and BMP: 04/14/18 04:25 04/12/18 07:37 ABG ABG pH 7.44 pH Units (7.32-7.45) 04/13/18 11:16 ABG pCO2 44 mmHg (35-45) 04/13/18 11:16 ABG pO2 53 mmHg (85-104) L 04/13/18 11:16 ABG O2 Saturation 88 % (95-98) L 04/13/18 11:16 PT/INR, D-dimer PT 12.9 Seconds (9.4-12.1) H 04/11/18 17:11 Abnormal lab findings: Abnormal lab results WBC 13.5 K/mcL (4.3-11.1) H 04/14/18 04:25 RBC 2.64 M/mcL (3.82-4.97) L 04/14/18 04:25 Hgb 7.9 g/dL (11.5-15.4) L 04/14/18 04:25 Hct 25.3 % (35.3-44.9) L 04/14/18 04:25 MCHC 31.2 g/dL (31.6-35.5) L 04/14/18 04:25 RDW 16.7 % (11.5-14.5) H 04/14/18 04:25 Neutrophils # 10.7 K/mcL (1.6-8.9) H 04/14/18 04:25 Monocytes # 1.4 K/mcL (0.0-1.3) H 04/14/18 04:25 PT 12.9 Seconds (9.4-12.1) H 04/11/18 17:11 ABG pO2 53 mmHg (85-104) L 04/13/18 11:16 ABG HCO3 30 mEq/L (21-27) H 04/13/18 11:16 ABG Total CO2 31 mEq/L (20-26) H 04/13/18 11:16 ABG O2 Saturation 88 % (95-98) L 04/13/18 11:16 ABG Base Excess 5 mEq/L (-2 to 3) H 04/13/18 11:16 VBG pH 7.49 pH Units (7.32-7.42) H 04/11/18 17:38 VBG pCO2 36 mmHg (41-51) L 04/11/18 17:38 VBG pO2 104 mmHg (25-50) H 04/11/18 17:38 Carbon Dioxide 31 mEq/L (23-29) H 04/12/18 07:37 BUN 29 mg/dL (8-23) H 04/12/18 07:37 Creatinine 1.26 mg/dL (0.60-1.20) H 04/12/18 07:37 Est GFR ( Amer) 49 (> 60) L 04/12/18 07:37 Est GFR (Non-Af Amer) 40 (> 60) L 04/12/18 07:37 Glucose 123 mg/dL (70-105) H 04/12/18 07:37 B-Natriuretic Peptide 274 pg/mL (Less than 100) H 04/11/18 17:26 Albumin 3.3 g/dL (3.5-5.7) L 04/11/18 17:11 Albumin/Globulin Ratio 0.9 (1.1-2.2) L 04/11/18 17:11 Urine Protein 30 mg/dL (Neg-Trace) H 04/11/18 18:25 Urine Ketones 15 mg/dL (Negative) H 04/11/18 18:25 - Diagnostic Findings Chest x-ray: report reviewed, image reviewed - Clinical Findings Intake & Output: Intake & Output 04/13/18 04/14/18 04/14/18 23:59 07:59 15:59 Intake Total 0 / 0 0 / 0 Output Total 300 / 300 500 / 500 Balance -300 / -300 -500 / -500 Weight 65.8 kg Consult Discharge Plan - Plan Referrals: Maria Eugenia English MD [Primary Care Provider] - <Nayely Rivera - Last Filed: 04/14/18 14:59> Date of Encounter: 04/14/18 Objective PUL Vital signs: Last Vital Signs Temp 98.4 F 04/14/18 11:57 Pulse 88 04/14/18 11:57 Resp 16 04/14/18 11:57 BP 123/75 04/14/18 11:57 Pulse Ox 91 04/14/18 11:57 Results - Laboratory Findings CBC and BMP: 04/14/18 04:25 04/12/18 07:37 ABG ABG pH 7.44 pH Units (7.32-7.45) 04/13/18 11:16 ABG pCO2 44 mmHg (35-45) 04/13/18 11:16 ABG pO2 53 mmHg (85-104) L 04/13/18 11:16 ABG O2 Saturation 88 % (95-98) L 04/13/18 11:16 PT/INR, D-dimer PT 12.9 Seconds (9.4-12.1) H 04/11/18 17:11 Abnormal lab findings: Abnormal lab results WBC 13.5 K/mcL (4.3-11.1) H 04/14/18 04:25 RBC 2.64 M/mcL (3.82-4.97) L 04/14/18 04:25 Hgb 7.9 g/dL (11.5-15.4) L 04/14/18 04:25 Hct 25.3 % (35.3-44.9) L 04/14/18 04:25 MCHC 31.2 g/dL (31.6-35.5) L 04/14/18 04:25 RDW 16.7 % (11.5-14.5) H 04/14/18 04:25 Neutrophils # 10.7 K/mcL (1.6-8.9) H 04/14/18 04:25 Monocytes # 1.4 K/mcL (0.0-1.3) H 04/14/18 04:25 PT 12.9 Seconds (9.4-12.1) H 04/11/18 17:11 ABG pO2 53 mmHg (85-104) L 04/13/18 11:16 ABG HCO3 30 mEq/L (21-27) H 04/13/18 11:16 ABG Total CO2 31 mEq/L (20-26) H 04/13/18 11:16 ABG O2 Saturation 88 % (95-98) L 04/13/18 11:16 ABG Base Excess 5 mEq/L (-2 to 3) H 04/13/18 11:16 VBG pH 7.49 pH Units (7.32-7.42) H 04/11/18 17:38 VBG pCO2 36 mmHg (41-51) L 04/11/18 17:38 VBG pO2 104 mmHg (25-50) H 04/11/18 17:38 Carbon Dioxide 31 mEq/L (23-29) H 04/12/18 07:37 BUN 29 mg/dL (8-23) H 04/12/18 07:37 Creatinine 1.26 mg/dL (0.60-1.20) H 04/12/18 07:37 Est GFR ( Amer) 49 (> 60) L 04/12/18 07:37 Est GFR (Non-Af Amer) 40 (> 60) L 04/12/18 07:37 Glucose 123 mg/dL (70-105) H 04/12/18 07:37 B-Natriuretic Peptide 274 pg/mL (Less than 100) H 04/11/18 17:26 Albumin 3.3 g/dL (3.5-5.7) L 04/11/18 17:11 Albumin/Globulin Ratio 0.9 (1.1-2.2) L 04/11/18 17:11 Urine Protein 30 mg/dL (Neg-Trace) H 04/11/18 18:25 Urine Ketones 15 mg/dL (Negative) H 04/11/18 18:25 - Microbiology Findings Microbiology Findings: Microbiology, Last 48 Hours 04/13/18 17:00 Respiratory Culture - Preliminary Left Lower Lobe Lung - Clinical Findings Intake & Output: Intake & Output 04/13/18 04/14/18 04/14/18 23:59 07:59 15:59 Intake Total 0 / 0 0 / 0 1000 / 1000 Output Total 300 / 300 500 / 500 Balance -300 / -300 -500 / -500 1000 / 1000 Weight 65.8 kg - Attending Attestation I examined this patient and my medical decision-making was reviewed with the Resident Physician. I agree with the documented findings, disposition and treatment plan as described except to the extent set forth below. Patient seen and examined. Labs, radiology, chart personally reviewed. 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 Change nebulizer to albuterol and limit anticholinergic because of the thick secretion and chest physical therapy. If necessary we will arrange bronchoscopy for her.
[2018-04-14] MEDS ORDERED: Acetylcysteine 10% 2 ML INHSOL IH SCH (08:45)
[2018-04-14] MEDS: 0.9 % Sodium Chloride 1,000 ML IVC SCH (08:52)
[2018-04-14] MEDS: Albuterol 2.5 MG/3 ML NEBULIZER IH SCH ×3 (11:19→22:53)
[2018-04-14] MEDS ORDERED: Ipratropium/Albuterol Neb 3 ML IH SCH (12:00)
[2018-04-14] MEDS: Ondansetron 4 MG/2 ML VIAL IVP PRN (13:27)
[2018-04-14] MEDS: Acetaminophen 325 MG TABLET PO PRN (13:28)
[2018-04-14] MEDS: Acetylcysteine 10% 2 ML INHSOL IH SCH ×2 (15:58→22:54)
[2018-04-15] MEDS: *HR* Heparin 5,000 UNIT/ML VIAL SQ SCH ×3 (00:26→15:28)
[2018-04-15] MEDS: 0.9 % Sodium Chloride 1,000 ML IVC SCH (00:30)
[2018-04-15] MEDS: Albuterol 2.5 MG/3 ML NEBULIZER IH SCH ×4 (03:42→21:13)
[2018-04-15] MEDS: Acetylcysteine 10% 2 ML INHSOL IH SCH ×4 (03:42→21:13)
[2018-04-15 07:00] LABS: Potassium 4.5 mEq/L (3.5-5.1)
[2018-04-15 08:05] LABS: Calcium 8.6 mg/dL (8.6-10.3)
[2018-04-15 08:15] LABS: Basophils % 0.1 %; Eosinophils % 0.2 %; Hematocrit 26.6 % (35.3-44.9); Hemoglobin 8.1 g/dL (11.5-15.4); Lymphocytes # 1.3 K/mcL (0.6-4.6); Lymphocytes % 9.6 %; Mean Corpuscular HGB Conc 30.5 g/dL (31.6-35.5); Mean Corpuscular Hemoglobin 30.7 pg (28.0-33.3); Mean Corpuscular Volume 100.8 fL (83.0-100.0); Mean Platelet Volume 12.1 fL (9.4-12.4); Monocytes # 1.8 K/mcL (0.0-1.3); Monocytes % 12.9 %; Neutrophils # 10.3 K/mcL (1.6-8.9); Nucleated Red Blood Cells 0.1 /100 WBC (0); Platelet Count 148 K/mcL (140-400); Red Blood Count 2.64 M/mcL (3.82-4.97); Red Cell Distribution Width 16.8 % (11.5-14.5); Segmented Neutrophils % 75.2 %
--- NOTE | 2018-04-15 08:47 | Pulmonology Progress Note ---
<Kunal Reynolds Russ - Last Filed: 04/15/18 12:53> Date of Encounter: 04/15/18 Time of Encounter: 09:49 Assessment and Plan (1) Acute and chronic respiratory failure with hypoxia Current Visit: Yes Status: Acute CXR from 04/13 revealed left lung volume loss secondary to central mucous plugging and multifocal consolidation. Pt went for emergent bronchoscopy after desatting to 85% on 12lpm O2, multiple mucous plugs removed. Follow up CXR revealed significantly improved aeration of the left lung, with remaining mild interstitial opacity Pt desatted again overnight. Another CXR was ordered which revealed returned left lower lobe opacity likely associated with more mucous plugging. CXR from 04/15 showed continued worsening opacification of the left lung Mucous during bronchoscopy was noted to be very thick and dry Continue Albuterol nebs q6h Continue Mucomyst nebs q6h Continue BiPap use Continue supplemental O2 Chest percussive therapy is extremely important for this pt because of her mental status and lack of drive to cough up sputum (2) COPD (chronic obstructive pulmonary disease) Current Visit: Yes Status: Chronic Management as above along with continued use of home Symbicort Qualifiers: COPD type: emphysema Emphysema type: panlobular Qualified Code(s): J43.1 - Panlobular emphysema (3) Pulmonary hypertension Current Visit: No Status: Chronic History of WHO class 3 pulmonary HTN, secondary to COPD On 5lpm O2 at home Subjective Principal diagnosis: Acute on Chronic Respiratory Failure Interval history: Ms. King is a 87F with PMH of pulmonary hypertension, CAD COPD, anxiety, CHF and pneumonia. She presented to the ED on 04/11 and was admitted for a fall. Head CT in the ED revealed no acute abnormalities. EKG and troponin were unremarkable at this time. Patient was initially found to be more confused than her basline, not alert to place and time. On 04/13 pt began decompensating with SpO2 dropping to 85% and below despite O2 therapy at 12lpm. ABG revealed hypoxemia with pO2 of 53. X-ray revealed central mucous plugging and consolidation. Emergent bronchoscopy revealed significant mucous plugging and very thick dry mucous primarily in the upper airway. Follow up CXR revealed greatly improved aeration of the left lung. Pt has continued increasing oxygen requirements. During the encounter with this provider, the pt was resting comfortably in bed with no acute complaints. She is pleasantly confused, not oriented to place, time, or events. She states she is coughing more and admits to chest congestion. Objective PUL Vital signs: Last Vital Signs Temp 98.1 F 04/15/18 03:50 Pulse 110 04/15/18 03:50 Resp 14 04/15/18 03:50 BP 100/49 04/15/18 03:50 Pulse Ox 91 04/15/18 03:50 General appearance: no acute distress Eyes: nonicteric ENT: oropharynx moist Neck: supple, no JVD Effort: mildly labored Auscultation: left: diminished breath sounds, right: rales Percussion: bilateral: not dull Tactile fremitus: bilateral: normal Cardiovascular: regular rate and rhythm Gastrointestinal: soft, non-tender, non-distended Integumentary: normal Extremities: no cyanosis, no edema, no clubbing, pink and warm Musculoskeletal: no deformities Gait: normal posture normal mental status, non-focal exam mood appropriate, affect normal Results - Laboratory Findings CBC and BMP: 04/15/18 04:00 04/15/18 04:00 ABG ABG pH 7.44 pH Units (7.32-7.45) 04/13/18 11:16 ABG pCO2 44 mmHg (35-45) 04/13/18 11:16 ABG pO2 53 mmHg (85-104) L 04/13/18 11:16 ABG O2 Saturation 88 % (95-98) L 04/13/18 11:16 PT/INR, D-dimer PT 12.9 Seconds (9.4-12.1) H 04/11/18 17:11 Abnormal lab findings: Abnormal lab results WBC 13.6 K/mcL (4.3-11.1) H 04/15/18 04:00 RBC 2.64 M/mcL (3.82-4.97) L 04/15/18 04:00 Hgb 8.1 g/dL (11.5-15.4) L 04/15/18 04:00 Hct 26.6 % (35.3-44.9) L 04/15/18 04:00 MCV 100.8 fL (83.0-100.0) H 04/15/18 04:00 MCHC 30.5 g/dL (31.6-35.5) L 04/15/18 04:00 RDW 16.8 % (11.5-14.5) H 04/15/18 04:00 Neutrophils # 10.3 K/mcL (1.6-8.9) H 04/15/18 04:00 Monocytes # 1.8 K/mcL (0.0-1.3) H 04/15/18 04:00 Nucleated RBCs/100 WBC 0.1 /100 WBC (0) H 04/15/18 04:00 PT 12.9 Seconds (9.4-12.1) H 04/11/18 17:11 ABG pO2 53 mmHg (85-104) L 04/13/18 11:16 ABG HCO3 30 mEq/L (21-27) H 04/13/18 11:16 ABG Total CO2 31 mEq/L (20-26) H 04/13/18 11:16 ABG O2 Saturation 88 % (95-98) L 04/13/18 11:16 ABG Base Excess 5 mEq/L (-2 to 3) H 04/13/18 11:16 VBG pH 7.49 pH Units (7.32-7.42) H 04/11/18 17:38 VBG pCO2 36 mmHg (41-51) L 04/11/18 17:38 VBG pO2 104 mmHg (25-50) H 04/11/18 17:38 BUN 33 mg/dL (8-23) H 04/15/18 04:00 Est GFR ( Amer) 53 (> 60) L 04/15/18 04:00 Est GFR (Non-Af Amer) 44 (> 60) L 04/15/18 04:00 BUN/Creatinine Ratio 28 (6-26) H 04/15/18 04:00 POC Glucose 105 mg/dL (70-99) H 04/14/18 11:54 B-Natriuretic Peptide 274 pg/mL (Less than 100) H 04/11/18 17:26 Albumin 3.3 g/dL (3.5-5.7) L 04/11/18 17:11 Albumin/Globulin Ratio 0.9 (1.1-2.2) L 04/11/18 17:11 Urine Protein 30 mg/dL (Neg-Trace) H 04/11/18 18:25 Urine Ketones 15 mg/dL (Negative) H 04/11/18 18:25 - Diagnostic Findings Chest x-ray: report reviewed, image reviewed - Clinical Findings Intake & Output: Intake & Output 04/14/18 04/15/18 04/15/18 23:59 07:59 15:59 Intake Total 0 / 0 Output Total 750 / 750 Balance -750 / -750 Weight 65.4 kg Consult Discharge Plan - Plan Referrals: Maria Eugenia English MD [Primary Care Provider] - <Nayely Rivera - Last Filed: 04/15/18 15:46> Date of Encounter: 04/15/18 Objective PUL Vital signs: Last Vital Signs Temp 98.1 F 04/15/18 10:57 Pulse 91 04/15/18 10:57 Resp 20 04/15/18 10:57 BP 109/69 04/15/18 10:57 Pulse Ox 91 04/15/18 10:57 Results - Laboratory Findings CBC and BMP: 04/15/18 04:00 04/15/18 04:00 ABG ABG pH 7.44 pH Units (7.32-7.45) 04/13/18 11:16 ABG pCO2 44 mmHg (35-45) 04/13/18 11:16 ABG pO2 53 mmHg (85-104) L 04/13/18 11:16 ABG O2 Saturation 88 % (95-98) L 04/13/18 11:16 PT/INR, D-dimer PT 12.9 Seconds (9.4-12.1) H 04/11/18 17:11 Abnormal lab findings: Abnormal lab results WBC 13.6 K/mcL (4.3-11.1) H 04/15/18 04:00 RBC 2.64 M/mcL (3.82-4.97) L 04/15/18 04:00 Hgb 8.1 g/dL (11.5-15.4) L 04/15/18 04:00 Hct 26.6 % (35.3-44.9) L 04/15/18 04:00 MCV 100.8 fL (83.0-100.0) H 04/15/18 04:00 MCHC 30.5 g/dL (31.6-35.5) L 04/15/18 04:00 RDW 16.8 % (11.5-14.5) H 04/15/18 04:00 Neutrophils # 10.3 K/mcL (1.6-8.9) H 04/15/18 04:00 Monocytes # 1.8 K/mcL (0.0-1.3) H 04/15/18 04:00 Nucleated RBCs/100 WBC 0.1 /100 WBC (0) H 04/15/18 04:00 PT 12.9 Seconds (9.4-12.1) H 04/11/18 17:11 ABG pO2 53 mmHg (85-104) L 04/13/18 11:16 ABG HCO3 30 mEq/L (21-27) H 04/13/18 11:16 ABG Total CO2 31 mEq/L (20-26) H 04/13/18 11:16 ABG O2 Saturation 88 % (95-98) L 04/13/18 11:16 ABG Base Excess 5 mEq/L (-2 to 3) H 04/13/18 11:16 VBG pH 7.49 pH Units (7.32-7.42) H 04/11/18 17:38 VBG pCO2 36 mmHg (41-51) L 04/11/18 17:38 VBG pO2 104 mmHg (25-50) H 04/11/18 17:38 BUN 33 mg/dL (8-23) H 04/15/18 04:00 Est GFR ( Amer) 53 (> 60) L 04/15/18 04:00 Est GFR (Non-Af Amer) 44 (> 60) L 04/15/18 04:00 BUN/Creatinine Ratio 28 (6-26) H 04/15/18 04:00 POC Glucose 102 mg/dL (70-99) H 04/15/18 11:05 B-Natriuretic Peptide 274 pg/mL (Less than 100) H 04/11/18 17:26 Albumin 3.3 g/dL (3.5-5.7) L 04/11/18 17:11 Albumin/Globulin Ratio 0.9 (1.1-2.2) L 04/11/18 17:11 Urine Protein 30 mg/dL (Neg-Trace) H 04/11/18 18:25 Urine Ketones 15 mg/dL (Negative) H 09/16/18 18:25 - Clinical Findings Intake & Output: Intake & Output 04/14/18 04/15/18 04/15/18 23:59 07:59 15:59 Intake Total 0 / 0 0 / 0 Output Total 750 / 750 Balance -750 / -750 0 / 0 Weight 65.4 kg - Attending Attestation I examined this patient and my medical decision-making was reviewed with the Resident Physician. I agree with the documented findings, disposition and treatment plan as described except to the extent set forth below. Patient seen and examined. Labs, radiology, chart personally reviewed. Agree with resident's history and physical, assessment, plan with following comments: [employer]: Patient follows commands, Pulmonary: Acceptable oxygenation and ventilation and continue chest physical therapy. Discussed with the son at the bedside since patient is not in any acute distress will continue monitoring.
--- NOTE | 2018-04-15 08:49 | Internal Med Progress Note ---
<Ousmane Scott - Last Filed: 04/15/18 17:11> Hospitalist Progress Note - Encounter Date of Encounter: 04/15/18 - Exam Vitals: Temp Pulse Resp BP Pulse Ox 98.1 F 91 16 109/69 94 04/15/18 10:57 04/15/18 10:57 04/15/18 15:51 04/15/18 10:57 04/15/18 15:51 - Assessment and Plan (1) Acute and chronic respiratory failure with hypoxia Current Visit: Yes Status: Acute (2) Mucus plugging of bronchi Current Visit: Yes Status: Acute (3) Pneumonia Current Visit: No Status: Suspected (4) COPD (chronic obstructive pulmonary disease) Current Visit: Yes Status: Chronic (5) Anxiety and depression Current Visit: Yes Status: Chronic (6) Hematoma Current Visit: Yes Status: Acute (7) Diastolic CHF Current Visit: Yes Status: Acute (8) Fall Current Visit: Yes Status: Acute (9) Decubitus ulcer of sacral region, stage 1 Current Visit: Yes Status: Acute (10) Chronic respiratory failure with hypoxia Current Visit: Yes Status: Chronic (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 Current Visit: Yes Status: Chronic (12) Acute metabolic encephalopathy Current Visit: Yes Status: Resolved (13) Anemia Current Visit: Yes Status: Chronic - Time Spent with Patient Total time spent is greater than 50% in coordination of care (as documented) at patient's floor/unit and/or counseling patient: Internal Medicine: Result - Labs CBC & Chem 7: 04/15/18 04:00 04/15/18 04:00 Labs: Short CBC 04/15/18 Range/Units 04:00 WBC 13.6 H (4.3-11.1) K/mcL Hgb 8.1 L (11.5-15.4) g/dL Hct 26.6 L (35.3-44.9) % Plt Count 148 (140-400) K/mcL Neutrophils # 10.3 H (1.6-8.9) K/mcL BMP 04/15/18 04:00 Sodium 140 Potassium 4.5 Chloride 105 Carbon Dioxide 24 BUN 33 H Creatinine 1.17 Glucose 78 Calcium 8.6 - ABG Interpretation ABG results: ABG ABG pH 7.44 pH Units (7.32-7.45) 09/18/18 11:16 ABG pCO2 44 mmHg (35-45) 04/13/18 11:16 ABG pO2 53 mmHg (85-104) L 04/13/18 11:16 ABG O2 Saturation 88 % (95-98) L 04/13/18 11:16 PT/INR, D-dimer PT 12.9 Seconds (9.4-12.1) H 04/11/18 17:11 - Impressions Impressions Chest X-Ray 04/15/18 08:42 IMPRESSION: 1. Worsening left upper lobe airspace disease either due to atelectasis or developing pneumonia. D/ / Tyler Saleem MD / Tyler Saleem MD Interpreting Provider: Tyler Saleem MD Consult Discharge Plan - Plan Referrals: Maria Eugenia English MD [Primary Care Provider] - - Attending Attestation I examined this patient and my medical decision-making was reviewed with the Resident Physician on 04/15/18. I agree with the documented findings, disposition and treatment plan as described except to the extent set forth below. Ms Jensen is currently admitted for acute on chronic resp failure. She remains moderate to high risk due to potential for worsening clinical status. Ms Jensen is still very congested. She still is dyspneic at rest. No fever or chills. No GI issues. Sputum positive for Staph. Exam Alert Mod distress due to breathing Mucus membranes dry Heart distant and hard to hear Lungs with coarse rhonchi bilaterally L greater than R Abd soft I/P 1. Resp failure 2. ? staph pneumonia - add Vanc Further diagnoses and plan as above. <Ehsan Trinh - Last Filed: 04/15/18 18:20> Hospitalist Progress Note - Encounter Date of Encounter: 04/15/18 Time of Encounter: 09:30 - Subjective Interval History: 04/15 No acute events overnight. Patient continues to have increased demand for oxygen to keep her sats. She is on 5 L of oxygen the morning which went up by 10 L of this afternoon. She continues to be on mucomyst , albuterol inhalers. I tried to discuss the goals of care with the patient's son. Apparently he wants to discuss it with the rest of the siblings who are not resident today. The palliative team will touch base with them tomorrow morning. Most recent chest x-ray showed worsening left upper lobe airspace disease with concerns for atelectasis or pneumonia. Patient currently on IV vancomycin and Levaquin. She is also on 40 IV Lasix. 04/14 Patient's sPO2 dropped overnight. A follow up chest x-ray was ordered which showed opacities associated with return of mucous plugging. Pulmonology recommended Mucomyst to help her with mucous plugging in conjunction with chest percussive therapy. Patient is also been transitioned from DuoNeb's to albuterol every 6 hours. 04/13 Ms. jensen is a 87 year-old female with a past medical history of grade 3 pulmonary hypertension, CAD COPD, anxiety, CHF and pneumonia is admitted to the floor because of an episode of fall. Initial workup in the ED was negative for any midline shift, intracranial mass. Her EKG and troponin values were unremarkable. Patient was initially found to be more confused, not alert to place and time however the confusion has resolved as of today. Patient is on 5L of oxygen for her pulmonary HTN, and is on Symbicort and albuterol for COPD. Of note, patient was recently, admitted to the ICU because of acute and chronic respiratory failure, pneumonia , was on BiPAP and underwent a course of Vanc an Zosyn [facility]. Talking to to the Daughter it Seems That Patient has not Been Using Her BiPAP at the Care Home because the mask doesn't fit her properly. This AM patient was initially on 5 L of oxygen mask satting at 90%, however she suddenly decompensated and was found to be satting at 85% on 12 L of oxymask, her ABG showed moderate hypoxemia (pO2 : 53%). Her x-ray showed central mucous plugging and focal consolidation . Patient was taken for emergent bronchoscopy and she tolerated the procedure well. - Exam Vitals: Temp Pulse Resp BP Pulse Ox 98.1 F 110 14 100/49 91 04/15/18 03:50 04/15/18 03:50 04/15/18 03:50 04/15/18 03:50 04/15/18 03:50 Exam: - Gen: A&O *3, no acute distress, afebrile. -Respiratory: decreased breath sounds. Mild wheezing no rales or rhonchi. s/p bronchoscopy, on 5L O2 - CV: RRR, no gallop or murmur.or rubs GI: Abdomen is soft and not tender. There is no palpable mass or visceromegaly. Neuro: There is no focal deficits. - Assessment and Plan (1) Acute and chronic respiratory failure with hypoxia Current Visit: Yes Status: Acute Assessment and Plan: - secondary to her Hx of COPD, patient was admitted to the ICU not too long ago for pneumonia-was on BiPAP and Abx - Repeat chest x-ray this a.m. showed new opacity to the left mid to lower lung zones, - Likely on albuterol q6h, Mucomyst nebs q6h , on 5L oxygen mask satting at 91%. - Chest percussive therapy pending (2) Pneumonia Current Visit: No Status: Suspected Assessment and Plan: - Secondary to her history of COPD. Patient patient has had worsening lung function with development of mucous plug s/p bronchoscopy -On physical exam she was bilaterally wheezing. Had tactile fremitus. Her WBC is 13.6 today -Likely hospital acquired pneumonia. Patient currently on IV vancomycin and Levaquin. - Continue to monitor (3) Encephalopathy Current Visit: Yes Status: Acute Assessment and Plan: - likely multifactorial in nature. Patient has a Hx of Acute on chronic resp failure, currently on 5L of O2 at home. She also had an episode of fall with unremarkable workup in the ED. - one examination during admission she had right occipital hematoma which seems to be resolving - s/p bronchscopy and currently on 7L satting at 91% - on Physical exam today she was not Alert to place and time. - continue to monitor (4) COPD (chronic obstructive pulmonary disease) Current Visit: Yes Status: Chronic Assessment and Plan: - Patient has a history of COPD. -Takes Symbicort and albuterol, on 5L of O2 at home - Currently on mucomyst nebs q6h, albuterol nebs q6h, recommended BiPAP use -continue to monitor (5) Pulmonary hypertension Current Visit: Yes Status: Acute Assessment and Plan: - Patient has a Hx of group III Pulm HTN likely due to her Hx of COPD. she's on 5 L of suppl oxygen at home - Her most recent Echo from the last admission to the ICU showed severe pulmonary hypertension with RVSP of 57-62. - She may benefit from left heart catherization as an out patient - f/u Pulmonology as an outpatient for management (6) CKD (chronic kidney disease) Current Visit: Yes Status: Acute Assessment and Plan: - patient has a Hx of stage 3 CKD, GFR : 40 .Her GFR has been slowly worsening since 2015. - baseline Cr is ~1.3 and patient currently at baseline - avoid nephrotoxic agents, renally dose medications (7) Congestive heart failure Current Visit: Yes Status: Acute Assessment and Plan: -Patient with history of CHF, her last echo showed mild diastolic dysfunction with EF of 65% with severe pulmonary hypertension. -On physical exam, she does not appear to be volume overloaded. no JVDs and S3 appreciated. -Deluna fluid restriction, strict I's/ O's Current Is/Os: 1000/500 -Recommended BiPAP, fine control of diuretics due to Hx of Stage 3 CKD. Given 40mg IV Lasix (8) Anxiety and depression Current Visit: Yes Status: Chronic Assessment and Plan: Patient is a history of anxiety and depression -Continue home meds Celexa. DVT Prophylaxis: Subcutaneous heparin. - Time Spent with Patient Total time spent is greater than 50% in coordination of care (as documented) at patient's floor/unit and/or counseling patient: Internal Medicine: Result - Labs CBC & Chem 7: 04/15/18 04:00 04/15/18 04:00 Labs: Short CBC 04/15/18 Range/Units 04:00 WBC 13.6 H (4.3-11.1) K/mcL Hgb 8.1 L (11.5-15.4) g/dL Hct 26.6 L (35.3-44.9) % Plt Count 148 (140-400) K/mcL Neutrophils # 10.3 H (1.6-8.9) K/mcL BMP 04/15/18 04:00 Sodium 140 Potassium 4.5 Chloride 105 Carbon Dioxide 24 BUN 33 H Creatinine 1.17 Glucose 78 Calcium 8.6 - ABG Interpretation ABG results: ABG ABG pH 7.44 pH Units (7.32-7.45) 04/13/18 11:16 ABG pCO2 44 mmHg (35-45) 04/13/18 11:16 ABG pO2 53 mmHg (85-104) L 04/13/18 11:16 ABG O2 Saturation 88 % (95-98) L 04/13/18 11:16 PT/INR, D-dimer PT 12.9 Seconds (9.4-12.1) H 04/11/18 17:11 <Ousmane Scott - Last Filed: 04/15/18 17:11> (3) Pneumonia Qualifiers: Pneumonia type: due to methicillin-sensitive Staphylococcus aureus (MSSA) Laterality: right Lung location: lower lobe of lung Qualified Code(s): J15.211 - Pneumonia due to Methicillin susceptible Staphylococcus aureus (4) COPD (chronic obstructive pulmonary disease) Qualifiers: COPD type: emphysema Emphysema type: panlobular Qualified Code(s): J43.1 - Panlobular emphysema (7) Diastolic CHF Qualifiers: Heart failure chronicity: chronic Qualified Code(s): I50.32 - Chronic diastolic (congestive) heart failure (8) Fall Qualifiers: Encounter type: subsequent encounter Qualified Code(s): W19.XXXD - Unspecified fall, subsequent encounter (13) Anemia Qualifiers: Anemia type: other cause Other causes of anemia: chronic disease, other Qualified Code(s): D63.8 - Anemia in other chronic diseases classified elsewhere <Ehsan Trinh - Last Filed: 04/15/18 18:20> (2) Pneumonia Qualifiers: Pneumonia type: due to methicillin-sensitive Staphylococcus aureus (MSSA) Laterality: right Lung location: lower lobe of lung Qualified Code(s): J15.211 - Pneumonia due to Methicillin susceptible Staphylococcus aureus (4) COPD (chronic obstructive pulmonary disease) Qualifiers: COPD type: emphysema Emphysema type: panlobular Qualified Code(s): J43.1 - Panlobular emphysema
[2018-04-15] MEDS: levoFLOXacin 750 MG TABLET PO SCH (10:44)
--- NOTE | 2018-04-15 14:43 | Palliative - Consult Note ---
Date of Encounter: 04/15/18 Time of Encounter: 14:30 - Assessment and Plan (1) Dyspnea Current Visit: No Status: Acute Assessment and plan: Awaiting goals of care discussion when family arrives. She has aerosols/ mucomyst/antibiotics in place at this time. Qualifiers: Dyspnea type: shortness of breath Qualified Code(s): R06.02 - Shortness of breath; R06.00 - Dyspnea, unspecified; R06.01 - Orthopnea (2) Anxiety and depression Current Visit: Yes Status: Chronic Assessment and plan: Continues with home dose Celexa. (3) Constipation Current Visit: Yes Status: Acute Assessment and plan: Continues with colace - BM x2 documented since admission - small one yesterday. If continues to be issues, will change Colace to Senokot. Qualifiers: Constipation type: unspecified constipation type Qualified Code(s): K59.00 - Constipation, unspecified (4) Goals of care, counseling/discussion Current Visit: No Status: Acute Assessment and plan: Awaiting family to arrive, patient Myles gallegos at bedside, and states that his brother and sister should be here for conversation. Patient's POA is rosy King (Jay). I will try and touch base by phone to schedule meeting. (5) Acute and chronic respiratory failure with hypoxia Current Visit: Yes Status: Acute Assessment and plan: Pulmonology following. Continues with aerosols/mucomyst, antibiotics, chest percussion. Currently remains DNR/DNI at this time. (6) Mucus plugging of bronchi Current Visit: Yes Status: Acute (7) Pulmonary hypertension Current Visit: No Status: Chronic Palliative-CN HPI - Data of Consult Patient: known to practice within the last 3 years Consult date: 04/15/18 Requesting Physician: Ousmane Scott DO Primary Care Provider: Maria Eugenia English - Consult Narrative Palliative Care/Comfort Measures: Palliative care History of present illness: Ms. King is a 87 year old female known to the palliative team from previous visit, who presented after fall and increased shortness of breath at [facility]. She has been at [facility] for rehabilitation. She has history of COPD/severe pulmonary hypertension, and had recent fall with left radial and left femur fractures in January. Patient has pertinent medical history for: pulmonary hypertension, CAD COPD, anxiety, CHF and pneumonia. Pulmonology has been consulted, and is following pt. Patient had bronchoscopy with removal of mucous plugs on 04/13, and chest percussion therapy/mucomyst aerosols were began. CXR this am appears that left upper lobe is again worse and pt likely has increased mucous plugs once again. She typically is on 5L oxygen prior to admission, and has been requiring 8-10 Liters over last couple of days. It is unknown if she is compliant with bipap at [facility]. She had prolonged hospitalization from 02/28/18-03/20/18, with treatment for COPD/CHF. Her code status was changed to DNR/DNI during that visit, and family desired return to rehab, but ultimately if she did not do well, transition to hospice. Karnofsky performance scale at 40%. Upon my visit, pt son Myles is present in room. Physical therapy has been in and pt states she is nauseated and tired. Has been NPO. Moist harsh cough noted. Denies any discomfort at present. Has dyspnea with any exertion. Palliative care CC: Ousmane Scott, DO - Time Spent with Patient Time: Total time spent is greater than 50% in coordination of care (as documented) at patient's floor/unit and/or counseling patient: Past Med Surg Social Fam HX - Past Medical History Medical history: aortic aneurysm, arthritis, CHF, COPD, CVA, hypertension, other Additional medical history: Left ankle fracture, left hip fracture, left wrist fracture Psychiatric history: anxiety, depression - Past Surgical History Surgical History: carotid endarterectomy, cataract Additional surgical history: broken ankle - Social History Smoking Status: Former smoker Smokeless Tobacco Status: No Alcohol use: none Drug use: none - Family History Mother Adopted: No Living Status: Hx Family Cardiac Disorders: Yes (mother) Hx Family Respiratory Disorders: No Hx Family Cancer: No Hx Family GI Disorders: No Hx Family Endocrine Disorder: No Hx Family Neuromuscular Disorders: No Hx Family Neurologic Disorders: No Hx Family HEENT Disorders: No Hx Family Autoimmune Disorders: No Medications and Allergies Ergocalciferol (VITAMIN D2) [Vitamin D] 400 unit PO BID 02/19/18 [History] Vit A/C/E AC/Znox/Cupric Oxide [Eye Vitamin-Minerals Tablet] 1 tab PO DAILY [History] Aspirin 325 mg PO BID #60 tablet 02/24/18 [Rx] Albuterol Sulfate [Proair Hfa] 2 puff IH Q4-6H PRN 03/01/18 [History] Citalopram [CeleXA] 20 mg PO DAILY 03/01/18 [History] Metoprolol [Lopressor] 12.5 mg PO BID 03/01/18 [History] Bethanechol Chloride [Urecholine] 10 mg PO TID 04/13/18 [History] Budesonide/Formoterol 80/4.5 [Symbicort 80/4.5] 2 puff PO BID 04/13/18 [History ] Ferrous Sulfate [Iron] 325 mg PO DAILY 04/13/18 [History] Ipratropium/Albuterol Neb [Duoneb] 3 ml IH Q6HR 04/13/18 [History] Oxycodone HCl [Oxaydo] 5 mg PO Q6H PRN 04/13/18 [History] Tamsulosin HCl [Flomax] 0.4 mg PO DAILY 04/13/18 [History] amLODIPine [Norvasc] 5 mg PO DAILY 04/13/18 [History] diazePAM [Valium] 5 mg PO DAILY PRN 04/13/18 [History] 3 Allergy/AdvReac Type Severity Reaction Status Date / Time No Known Allergies Allergy Verified 02/19/18 15:50 All systems: reviewed and no additional remarkable complaints except as stated ( shortness of breath, cough with thick sputum, generalized weakness, nausea) Palliative Care-Exam - Constitutional Vitals: Temp Pulse Resp BP Pulse Ox 98.1 F 91 20 109/69 91 04/15/18 10:57 04/15/18 10:57 04/15/18 10:57 04/15/18 10:57 04/15/18 10:57 General appearance: Present: mild distress, thin - Head Head Exam: Present: normal inspection, normocephalic - Respiratory Additional comments: Breath sounds diminished lower lobes posteriorally - Cardiovascular Cardiovascular exam: Present: +S1, +S2 - GI/Abdominal Exam GI/Abdominal exam: Present: diminished bowel sounds, soft - Extremities Exam Extremities exam: Present: normal capillary refill, normal inspection - Neurological Exam Neurological exam: Present: alert, oriented X3, strengths equal and symetr throughout - Skin Skin exam: Present: dry, pallor, warm Internal Medicine - CN: Reslt - Labs CBC & Chem 7: 04/15/18 04:00 04/15/18 04:00 Labs: Short CBC 04/15/18 Range/Units 04:00 WBC 13.6 H (4.3-11.1) K/mcL Hgb 8.1 L (11.5-15.4) g/dL Hct 26.6 L (35.3-44.9) % Plt Count 148 (140-400) K/mcL Neutrophils # 10.3 H (1.6-8.9) K/mcL BMP 04/15/18 04:00 Sodium 140 Potassium 4.5 Chloride 105 Carbon Dioxide 24 BUN 33 H Creatinine 1.17 Glucose 78 Calcium 8.6 - ABG Interpretation ABG results: ABG ABG pH 7.44 pH Units (7.32-7.45) 04/13/18 11:16 ABG pCO2 44 mmHg (35-45) 04/13/18 11:16 ABG pO2 53 mmHg (85-104) L 04/13/18 11:16 ABG O2 Saturation 88 % (95-98) L 04/13/18 11:16 PT/INR, D-dimer PT 12.9 Seconds (9.4-12.1) H 04/11/18 17:11 - Impressions Impressions Chest X-Ray 04/15/18 08:42 IMPRESSION: 1. Worsening left upper lobe airspace disease either due to atelectasis or developing pneumonia. D/ / Tyler Saleem MD / Tyler Saleem MD Interpreting Provider: Tyler Saleem MD Consult Discharge Plan - Plan Referrals: Maria Eugenia English MD [Primary Care Provider] - Palliative Quality Palliative Quality: Screen for Code Status: Yes, Screen for Goals of Care: Yes, Screen for Pain: Yes, If Pain Regimen Started, Initiate Bowel Regimen: NA, Screen for Nausea/Vomitting: Yes
[2018-04-15] MEDS ORDERED: Furosemide 40 MG/4 ML VIAL IVP ONE (14:56)
[2018-04-16] MEDS: *HR* Heparin 5,000 UNIT/ML VIAL SQ SCH ×4 (02:34→23:38)
[2018-04-16] MEDS: 0.9 % Sodium Chloride 1,000 ML IVC SCH ×2 (02:39→23:12)
[2018-04-16] MEDS: Albuterol 2.5 MG/3 ML NEBULIZER IH SCH ×4 (04:10→21:22)
[2018-04-16] MEDS: Acetylcysteine 10% 2 ML INHSOL IH SCH ×4 (04:10→21:22)
[2018-04-16 06:12] LABS: Basophils % 0.2 %; Eosinophils % 0.2 %; Hematocrit 24.5 % (35.3-44.9); Hemoglobin 7.6 g/dL (11.5-15.4); Immature Granulocytes % 3.9 % (0-4); Lymphocytes # 1.3 K/mcL (0.6-4.6); Lymphocytes % 10.4 %; Mean Platelet Volume 11.6 fL (9.4-12.4); Monocytes # 1.6 K/mcL (0.0-1.3); Monocytes % 12.2 %; Neutrophils # 9.4 K/mcL (1.6-8.9); Nucleated Red Blood Cells 0.2 /100 WBC (0); Platelet Count 132 K/mcL (140-400); Red Blood Count 2.45 M/mcL (3.82-4.97); Red Cell Distribution Width 16.5 % (11.5-14.5); Segmented Neutrophils % 73.1 %
[2018-04-16 06:58] LABS: Calcium 8.5 mg/dL (8.6-10.3); Potassium 4.2 mEq/L (3.5-5.1)
--- NOTE | 2018-04-16 08:54 | Internal Med Progress Note ---
<TrinhSofía schulerbh - Last Filed: 04/16/18 17:08> Hospitalist Progress Note - Encounter Date of Encounter: 04/16/18 Time of Encounter: 09:45 - Subjective Interval History: 04/16 patient's respiratory status continues to decline . She was requiring 5-7L oxygen yesterday but has been on BiPAP today. It has been virtually impossible for the palliative team to congregate the whole family in order to discuss the code status of the patient with them. With her worsening respiratory status, there is a possibility, she might need another emergent bronchoscopy this weekend. Patient continues to be on mucomyst nebs q6h, and albuterol nebs q6h for helping her breathe better . She underwent chest percussive therapy to help with her chest congestion. 04/15 No acute events overnight. Patient continues to have increased demand for oxygen to keep her sats. She is on 5 L of oxygen the morning which went up by 10 L of this afternoon. She continues to be on mucomyst , albuterol inhalers. I tried to discuss the goals of care with the patient's son. Apparently he wants to discuss it with the rest of the siblings who are not resident today. The palliative team will touch base with them tomorrow morning. Most recent chest x-ray showed worsening left upper lobe airspace disease with concerns for atelectasis or pneumonia. Patient currently on IV vancomycin and Levaquin. She is also on 40 IV Lasix. 04/14 Patient's sPO2 dropped overnight. A follow up chest x-ray was ordered which showed opacities associated with return of mucous plugging. Pulmonology recommended Mucomyst to help her with mucous plugging in conjunction with chest percussive therapy. Patient is also been transitioned from DuoNeb's to albuterol every 6 hours. 04/13 Ms. jensen is a 87 year-old female with a past medical history of grade 3 pulmonary hypertension, CAD COPD, anxiety, CHF and pneumonia is admitted to the floor because of an episode of fall. Initial workup in the ED was negative for any midline shift, intracranial mass. Her EKG and troponin values were unremarkable. Patient was initially found to be more confused, not alert to place and time however the confusion has resolved as of today. Patient is on 5L of oxygen for her pulmonary HTN, and is on Symbicort and albuterol for COPD. Of note, patient was recently, admitted to the ICU because of acute and chronic respiratory failure, pneumonia , was on BiPAP and underwent a course of Vanc an Zosyn and discharge to the care home with BiPAP qualification. Talking to to the Daughter it Seems That Patient has not Been Using Her BiPAP at the Detention because the mask doesn't fit her properly. This AM patient was initially on 5 L of oxygen mask satting at 90%, however she suddenly decompensated and was found to be satting at 85% on 12 L of oxymask, her ABG showed moderate hypoxemia (pO2 : 53%). Her x-ray showed central mucous plugging and focal consolidation . Patient was taken for emergent bronchoscopy and she tolerated the procedure well. - Exam Vitals: Temp Pulse Resp BP Pulse Ox 98.2 F 85 28 138/73 97 04/16/18 05:57 04/16/18 05:57 04/16/18 05:57 04/16/18 05:57 04/16/18 05:57 Exam: - Gen: A&O *3, no acute distress, afebrile. -Respiratory: decreased breath sounds. Mild wheezing no rales or rhonchi. s/p bronchoscopy, currently on BiPAP - CV: RRR, no gallop or murmur.or rubs GI: Abdomen is soft and not tender. There is no palpable mass or visceromegaly. Neuro: There is no focal deficits. - Assessment and Plan (1) Acute and chronic respiratory failure with hypoxia Current Visit: Yes Status: Acute Assessment and Plan: - secondary to her Hx of COPD, patient was admitted to the ICU not too long ago for pneumonia-was on BiPAP and Abx - Repeat chest x-ray this a.m. showed new opacity to the left mid to lower lung zones, - Likely on albuterol q6h, Mucomyst nebs q6h , on 8L oxygen mask satting at 91%. - Underwent chest percussive therapy yesterday. (2) Pneumonia Current Visit: No Status: Suspected Assessment and Plan: - Secondary to her history of COPD. Patient has had worsening lung function with development of mucous plug s/p bronchoscopy -On physical exam she was bilaterally wheezing. Had tactile fremitus. Her WBC is 12.9 today -Likely hospital acquired pneumonia. Patient currently on IV vancomycin and Levaquin. - Continue to monitor (3) Encephalopathy Current Visit: Yes Status: Acute Assessment and Plan: - likely multifactorial in nature. Patient has a Hx of Acute on chronic resp failure, currently on 8L of O2 at home. She also had an episode of fall with unremarkable workup in the ED. - one examination during admission she had right occipital hematoma which seems to be resolving - s/p bronchscopy and currently on 8L satting at 91% - on Physical exam today she was not Alert to place and time. - continue to monitor (4) COPD (chronic obstructive pulmonary disease) Current Visit: Yes Status: Chronic Assessment and Plan: - Patient has a history of COPD. -Takes Symbicort and albuterol, on 5L of O2 at home - Currently on mucomyst nebs q6h, albuterol nebs q6h, recommended BiPAP use -continue to monitor (5) Pulmonary hypertension Current Visit: Yes Status: Acute Assessment and Plan: - Patient has a Hx of group III Pulm HTN likely due to her Hx of COPD. she's on 5 L of suppl oxygen at home - Her most recent Echo from the last admission to the ICU showed severe pulmonary hypertension with RVSP of 57-62. - She may benefit from left heart catherization as an out patient - f/u Pulmonology as an outpatient for management (6) CKD (chronic kidney disease) Current Visit: Yes Status: Acute Assessment and Plan: - patient has a Hx of stage 3 CKD, GFR : 40 .Her GFR has been slowly worsening since 2015. - baseline Cr is ~1.3 and patient currently at baseline - avoid nephrotoxic agents, renally dose medications (7) Congestive heart failure Current Visit: Yes Status: Acute Assessment and Plan: -Patient with history of CHF, her last echo showed mild diastolic dysfunction with EF of 65% with severe pulmonary hypertension. -On physical exam, she does not appear to be volume overloaded. no JVDs and S3 appreciated. -Daily fluid restriction, strict I's/ O's Current Is/Os: 1000/500 -Recommended BiPAP, fine control of diuretics due to Hx of Stage 3 CKD. (8) Anxiety and depression Current Visit: Yes Status: Chronic Assessment and Plan: Patient is a history of anxiety and depression -Continue home meds Celexa. DVT Prophylaxis: Subcutaneous heparin. - Time Spent with Patient Total time spent is greater than 50% in coordination of care (as documented) at patient's floor/unit and/or counseling patient: Internal Medicine: Result - Labs CBC & Chem 7: 04/16/18 05:56 04/16/18 05:55 Labs: Short CBC 04/16/18 Range/Units 05:56 WBC 12.9 H (4.3-11.1) K/mcL Hgb 7.6 L (11.5-15.4) g/dL Hct 24.5 L (35.3-44.9) % Plt Count 132 L (140-400) K/mcL Neutrophils # 9.4 H (1.6-8.9) K/mcL BMP 04/16/18 05:55 Sodium 141 Potassium 4.2 Chloride 104 Carbon Dioxide 28 BUN 35 H Creatinine 1.22 H Glucose 91 Calcium 8.5 L - ABG Interpretation ABG results: ABG ABG pH 7.44 pH Units (7.32-7.45) 04/13/18 11:16 ABG pCO2 44 mmHg (35-45) 04/13/18 11:16 ABG pO2 53 mmHg (85-104) L 04/13/18 11:16 ABG O2 Saturation 88 % (95-98) L 04/13/18 11:16 PT/INR, D-dimer PT 12.9 Seconds (9.4-12.1) H 04/11/18 17:11 - Impressions Impressions Chest X-Ray 04/15/18 08:42 IMPRESSION: 1. Worsening left upper lobe airspace disease either due to atelectasis or developing pneumonia. D/ / Tyler Saleem MD / Tyler Saleem MD Interpreting Provider: Tyler Saleem MD Consult Discharge Plan - Plan Referrals: Maria Eugenia English MD [Primary Care Provider] - <Ousmane Scott - Last Filed: 04/16/18 18:48> Hospitalist Progress Note - Encounter Date of Encounter: 04/16/18 - Exam Vitals: Temp Pulse Resp BP Pulse Ox 98.1 F 109 16 105/67 92 04/16/18 16:02 04/16/18 16:02 04/16/18 16:18 04/16/18 16:02 04/16/18 16:18 - Assessment and Plan (1) Acute and chronic respiratory failure with hypoxia Current Visit: Yes Status: Acute (2) Mucus plugging of bronchi Current Visit: Yes Status: Acute (3) Pneumonia Current Visit: No Status: Suspected (4) COPD (chronic obstructive pulmonary disease) Current Visit: Yes Status: Chronic (5) Anxiety and depression Current Visit: Yes Status: Chronic (6) Hematoma Current Visit: Yes Status: Acute (7) Diastolic CHF Current Visit: Yes Status: Chronic (8) Fall Current Visit: Yes Status: Acute (9) Decubitus ulcer of sacral region, stage 1 Current Visit: Yes Status: Acute (10) Chronic respiratory failure with hypoxia Current Visit: Yes Status: Chronic (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 Current Visit: Yes Status: Chronic (12) Acute metabolic encephalopathy Current Visit: Yes Status: Resolved (13) Anemia Current Visit: Yes Status: Chronic - Time Spent with Patient Total time spent is greater than 50% in coordination of care (as documented) at patient's floor/unit and/or counseling patient: Internal Medicine: Result - Labs CBC & Chem 7: 04/16/18 05:56 04/16/18 05:55 Labs: Short CBC 04/16/18 Range/Units 05:56 WBC 12.9 H (4.3-11.1) K/mcL Hgb 7.6 L (11.5-15.4) g/dL Hct 24.5 L (35.3-44.9) % Plt Count 132 L (140-400) K/mcL Neutrophils # 9.4 H (1.6-8.9) K/mcL BMP 04/16/18 05:55 Sodium 141 Potassium 4.2 Chloride 104 Carbon Dioxide 28 BUN 35 H Creatinine 1.22 H Glucose 91 Calcium 8.5 L - ABG Interpretation ABG results: ABG ABG pH 7.44 pH Units (7.32-7.45) 04/13/18 11:16 ABG pCO2 44 mmHg (35-45) 04/13/18 11:16 ABG pO2 53 mmHg (85-104) L 04/13/18 11:16 ABG O2 Saturation 88 % (95-98) L 04/13/18 11:16 PT/INR, D-dimer PT 12.9 Seconds (9.4-12.1) H 04/11/18 17:11 - Attending Attestation I examined this patient and my medical decision-making was reviewed with the Resident Physician on 04/16/18. I agree with the documented findings, disposition and treatment plan as described except to the extent set forth below. Ms Jensen is currently admitted for acute resp failure and falls. She remains moderate to high risk due to potential for worsening clinical status. Ms Jensen is resting at this time. She seems to be doing a little better. Getting percussion. On IV abx. Exam alert Mild resp distress Mucus membranes dry Heart distant Some rhonchi heard Abd soft I/P 1. Resp failure 2. ? staph pneumonia Further diagnoses and plan as above. <Ehsan Trinh - Last Filed: 04/16/18 17:08> (2) Pneumonia Qualifiers: Pneumonia type: due to methicillin-sensitive Staphylococcus aureus (MSSA) Laterality: right Lung location: lower lobe of lung Qualified Code(s): J15.211 - Pneumonia due to Methicillin susceptible Staphylococcus aureus (4) COPD (chronic obstructive pulmonary disease) Qualifiers: COPD type: emphysema Emphysema type: panlobular Qualified Code(s): J43.1 - Panlobular emphysema <Ousmane Scott - Last Filed: 04/16/18 18:48> (3) Pneumonia Qualifiers: Pneumonia type: due to methicillin-sensitive Staphylococcus aureus (MSSA) Laterality: right Lung location: lower lobe of lung Qualified Code(s): J15.211 - Pneumonia due to Methicillin susceptible Staphylococcus aureus (4) COPD (chronic obstructive pulmonary disease) Qualifiers: COPD type: emphysema Emphysema type: panlobular Qualified Code(s): J43.1 - Panlobular emphysema (7) Diastolic CHF Qualifiers: Heart failure chronicity: chronic Qualified Code(s): I50.32 - Chronic diastolic (congestive) heart failure (8) Fall Qualifiers: Encounter type: subsequent encounter Qualified Code(s): W19.XXXD - Unspecified fall, subsequent encounter (13) Anemia Qualifiers: Anemia type: other cause Other causes of anemia: chronic disease, other Qualified Code(s): D63.8 - Anemia in other chronic diseases classified elsewhere
[2018-04-16] MEDS: levoFLOXacin 750 MG TABLET PO SCH (09:13)
--- NOTE | 2018-04-16 09:23 | Pulmonology Progress Note ---
<Jose Rafael Riveramakayla M - Last Filed: 04/16/18 12:05> Date of Encounter: 04/16/18 Objective PUL Vital signs: Last Vital Signs Temp 97.6 F 04/16/18 10:42 Pulse 72 04/16/18 10:42 Resp 16 04/16/18 10:42 BP 106/56 04/16/18 10:42 Pulse Ox 98 04/16/18 10:42 Results - Laboratory Findings CBC and BMP: 04/16/18 05:56 04/16/18 05:55 ABG ABG pH 7.44 pH Units (7.32-7.45) 04/13/18 11:16 ABG pCO2 44 mmHg (35-45) 04/13/18 11:16 ABG pO2 53 mmHg (85-104) L 04/13/18 11:16 ABG O2 Saturation 88 % (95-98) L 04/13/18 11:16 PT/INR, D-dimer PT 12.9 Seconds (9.4-12.1) H 04/11/18 17:11 Abnormal lab findings: Abnormal lab results WBC 12.9 K/mcL (4.3-11.1) H 04/16/18 05:56 RBC 2.45 M/mcL (3.82-4.97) L 04/16/18 05:56 Hgb 7.6 g/dL (11.5-15.4) L 04/16/18 05:56 Hct 24.5 % (35.3-44.9) L 04/16/18 05:56 MCHC 31.0 g/dL (31.6-35.5) L 04/16/18 05:56 RDW 16.5 % (11.5-14.5) H 04/16/18 05:56 Plt Count 132 K/mcL (140-400) L 04/16/18 05:56 Neutrophils # 9.4 K/mcL (1.6-8.9) H 04/16/18 05:56 Monocytes # 1.6 K/mcL (0.0-1.3) H 04/16/18 05:56 Nucleated RBCs/100 WBC 0.2 /100 WBC (0) H 04/16/18 05:56 PT 12.9 Seconds (9.4-12.1) H 04/11/18 17:11 ABG pO2 53 mmHg (85-104) L 04/13/18 11:16 ABG HCO3 30 mEq/L (21-27) H 04/13/18 11:16 ABG Total CO2 31 mEq/L (20-26) H 04/13/18 11:16 ABG O2 Saturation 88 % (95-98) L 04/13/18 11:16 ABG Base Excess 5 mEq/L (-2 to 3) H 04/13/18 11:16 VBG pH 7.49 pH Units (7.32-7.42) H 04/11/18 17:38 VBG pCO2 36 mmHg (41-51) L 04/11/18 17:38 VBG pO2 104 mmHg (25-50) H 04/11/18 17:38 BUN 35 mg/dL (8-23) H 04/16/18 05:55 Creatinine 1.22 mg/dL (0.60-1.20) H 04/16/18 05:55 Est GFR ( Amer) 50 (> 60) L 04/16/18 05:55 Est GFR (Non-Af Amer) 42 (> 60) L 04/16/18 05:55 BUN/Creatinine Ratio 29 (6-26) H 04/16/18 05:55 Calcium 8.5 mg/dL (8.6-10.3) L 04/16/18 05:55 B-Natriuretic Peptide 274 pg/mL (Less than 100) H 04/11/18 17:26 Albumin 3.3 g/dL (3.5-5.7) L 04/11/18 17:11 Albumin/Globulin Ratio 0.9 (1.1-2.2) L 04/11/18 17:11 Urine Protein 30 mg/dL (Neg-Trace) H 04/11/18 18:25 Urine Ketones 15 mg/dL (Negative) H 04/11/18 18:25 - Clinical Findings Intake & Output: Intake & Output 04/15/18 04/16/18 04/16/18 23:59 07:59 15:59 Intake Total 0 / 0 250 / 250 0 / 0 Output Total 650 / 650 550 / 550 250 / 250 Balance -650 / -650 -300 / -300 -250 / -250 Weight 66.1 kg Consult Discharge Plan - Plan Referrals: Maria Eugenia English MD [Primary Care Provider] - - Attending Attestation I examined this patient and my medical decision-making was reviewed with the Resident Physician. I agree with the documented findings, disposition and treatment plan as described except to the extent set forth below. Patient seen and examined. Labs, radiology, chart personally reviewed. Agree with resident's history and physical, assessment, plan with following comments: Pulmonary: Acceptable oxygenation and ventilation. No significant change from yesterday and still diminished in the left side, however patient is not in any acute distress and continue chest physical therapy. No plan for bronchoscopy at this time. <Kunal Reynolds - Last Filed: 04/16/18 13:06> Date of Encounter: 04/16/18 Time of Encounter: 10:30 Assessment and Plan (1) Acute and chronic respiratory failure with hypoxia Current Visit: Yes Status: Acute CXR from 04/13 revealed left lung volume loss secondary to central mucous plugging and multifocal consolidation. Pt went for emergent bronchoscopy after desatting to 85% on 12lpm O2, multiple mucous plugs removed. Follow up CXR revealed significantly improved aeration of the left lung, with remaining mild interstitial opacity Pt desatted again overnight. Another CXR was ordered which revealed returned left lower lobe opacity likely associated with more mucous plugging. CXR from 04/15 showed continued worsening opacification of the left lung Mucous during bronchoscopy was noted to be very thick and dry Continue Albuterol nebs q6h Continue Mucomyst nebs q6h Continue BiPap use Continue supplemental O2 Chest percussive therapy is extremely important for this pt because of her mental status and lack of drive to cough up sputum Per palliative, family is ok with bronchoscopy if needed over the weekend for continued decompensation. Pt is resting comfortably at this time and in no acute distress. (2) COPD (chronic obstructive pulmonary disease) Current Visit: Yes Status: Chronic Management as above along with continued use of home Symbicort Qualifiers: COPD type: emphysema Emphysema type: panlobular Qualified Code(s): J43.1 - Panlobular emphysema (3) Pulmonary hypertension Current Visit: No Status: Chronic History of WHO class 3 pulmonary HTN, secondary to COPD On 5lpm O2 at home Subjective Principal diagnosis: Acute on Chronic Respiratory Failure Interval history: Ms. King is a 87F with PMH of pulmonary hypertension, CAD COPD, anxiety, CHF and pneumonia. She presented to the ED on 04/11 and was admitted for a fall. Head CT in the ED revealed no acute abnormalities. EKG and troponin were unremarkable at this time. Patient was initially found to be more confused than her basline, not alert to place and time. On 04/13 pt began decompensating with SpO2 dropping to 85% and below despite O2 therapy at 12lpm. ABG revealed hypoxemia with pO2 of 53. X-ray revealed central mucous plugging and consolidation. Emergent bronchoscopy revealed significant mucous plugging and very thick dry mucous primarily in the upper airway. Follow up CXR revealed greatly improved aeration of the left lung. Pt has continued increasing oxygen requirements. During the encounter with this provider, the pt was resting comfortably in bed with no acute complaints. Currently on BiPap. Remains pleasantly confused, not oriented to place, time, or events. Objective PUL Vital signs: Last Vital Signs Temp 98.2 F 04/16/18 05:57 Pulse 85 04/16/18 05:57 Resp 28 04/16/18 05:57 BP 138/73 04/16/18 05:57 Pulse Ox 97 04/16/18 05:57 General appearance: no acute distress, alert Eyes: nonicteric ENT: oropharynx dry Neck: supple, no lymphadenopathy, no JVD Effort: normal Auscultation: left: diminished breath sounds, right: wheezes (fine upper ) Percussion: bilateral: not dull Tactile fremitus: bilateral: normal Cardiovascular: regular rate and rhythm Gastrointestinal: soft, non-tender, non-distended Integumentary: normal Extremities: no cyanosis, no edema, no clubbing, pink and warm Musculoskeletal: no deformities unable to assess due to mental status mood appropriate, affect normal Results - Laboratory Findings CBC and BMP: 04/16/18 05:56 04/16/18 05:55 ABG ABG pH 7.44 pH Units (7.32-7.45) 04/13/18 11:16 ABG pCO2 44 mmHg (35-45) 04/13/18 11:16 ABG pO2 53 mmHg (85-104) L 04/13/18 11:16 ABG O2 Saturation 88 % (95-98) L 04/13/18 11:16 PT/INR, D-dimer PT 12.9 Seconds (9.4-12.1) H 04/11/18 17:11 Abnormal lab findings: Abnormal lab results WBC 12.9 K/mcL (4.3-11.1) H 04/16/18 05:56 RBC 2.45 M/mcL (3.82-4.97) L 04/16/18 05:56 Hgb 7.6 g/dL (11.5-15.4) L 04/16/18 05:56 Hct 24.5 % (35.3-44.9) L 04/16/18 05:56 MCHC 31.0 g/dL (31.6-35.5) L 04/16/18 05:56 RDW 16.5 % (11.5-14.5) H 04/16/18 05:56 Plt Count 132 K/mcL (140-400) L 04/16/18 05:56 Neutrophils # 9.4 K/mcL (1.6-8.9) H 04/16/18 05:56 Monocytes # 1.6 K/mcL (0.0-1.3) H 04/16/18 05:56 Nucleated RBCs/100 WBC 0.2 /100 WBC (0) H 04/16/18 05:56 PT 12.9 Seconds (9.4-12.1) H 04/11/18 17:11 ABG pO2 53 mmHg (85-104) L 04/13/18 11:16 ABG HCO3 30 mEq/L (21-27) H 04/13/18 11:16 ABG Total CO2 31 mEq/L (20-26) H 04/13/18 11:16 ABG O2 Saturation 88 % (95-98) L 04/13/18 11:16 ABG Base Excess 5 mEq/L (-2 to 3) H 04/13/18 11:16 VBG pH 7.49 pH Units (7.32-7.42) H 04/11/18 17:38 VBG pCO2 36 mmHg (41-51) L 04/11/18 17:38 VBG pO2 104 mmHg (25-50) H 04/11/18 17:38 BUN 35 mg/dL (8-23) H 04/16/18 05:55 Creatinine 1.22 mg/dL (0.60-1.20) H 04/16/18 05:55 Est GFR ( Amer) 50 (> 60) L 04/16/18 05:55 Est GFR (Non-Af Amer) 42 (> 60) L 04/16/18 05:55 BUN/Creatinine Ratio 29 (6-26) H 04/16/18 05:55 Calcium 8.5 mg/dL (8.6-10.3) L 04/16/18 05:55 B-Natriuretic Peptide 274 pg/mL (Less than 100) H 04/11/18 17:26 Albumin 3.3 g/dL (3.5-5.7) L 04/11/18 17:11 Albumin/Globulin Ratio 0.9 (1.1-2.2) L 04/11/18 17:11 Urine Protein 30 mg/dL (Neg-Trace) H 04/11/18 18:25 Urine Ketones 15 mg/dL (Negative) H 04/11/18 18:25 - Clinical Findings Intake & Output: Intake & Output 04/15/18 04/16/18 04/16/18 23:59 07:59 15:59 Intake Total 0 / 0 250 / 250 Output Total 650 / 650 550 / 550 Balance -650 / -650 -300 / -300 Weight 66.1 kg
--- NOTE | 2018-04-16 11:42 | Palliative Progress Note ---
Date of Encounter: 04/16/18 Time of Encounter: 11:00 - Assessment and plan (1) Dyspnea Current Visit: No Status: Acute Assessment and plan: Continues with IV atb/ aerosols/mucomyst/bipap support. Continue to monitor Qualifiers: Dyspnea type: shortness of breath Qualified Code(s): R06.02 - Shortness of breath; R06.00 - Dyspnea, unspecified; R06.01 - Orthopnea (2) Anxiety and depression Current Visit: Yes Status: Chronic Assessment and plan: Continue Celexa. Patient denies anxiety. (3) Constipation Current Visit: Yes Status: Acute Assessment and plan: Continue Colace and monitor BM's. Qualifiers: Constipation type: unspecified constipation type Qualified Code(s): K59.00 - Constipation, unspecified (4) Goals of care, counseling/discussion Current Visit: No Status: Acute Assessment and plan: Patient family not here. I spoke with patient daughter Tameka over the telephone for 45 min. She was very upset and emotional. Updated on clinical status, and future plans/decisions to be made. She verbalized that pt son Myles has been in denial about her condition, and cannot make any decisions. She states that Myles has been disabled and has lived with her for years, and they are dependent on each other. She states that no further decisions would be made without a meeting with all of them. I called Nelson MORA, and he is working today and through weekend. He stated meeting would need to be Thursday. If patient does get into distress, they would be agreeable to repeat bronchoscopy if offered, until they can get together and discuss. Tameka ultimately would like her to be home, but not sure they can provide enough support for her. D/W Dr. Scott, will f/u on Thursday. (5) Acute and chronic respiratory failure with hypoxia Current Visit: Yes Status: Acute (6) Mucus plugging of bronchi Current Visit: Yes Status: Acute (7) Pulmonary hypertension Current Visit: No Status: Chronic - Time Spent With Patient Total time spent is greater than 50% in coordination of care (as documented) at patient's floor/unit and/or counseling patient: - Subjective Interval history: Patient sleeping on bipap. Does awaken with stimulation - is awake and oriented to name only. No family at bedside during my visit. - Constitutional Vitals: Abnormal lab results WBC 12.9 K/mcL (4.3-11.1) H 04/16/18 05:56 RBC 2.45 M/mcL (3.82-4.97) L 04/16/18 05:56 Hgb 7.6 g/dL (11.5-15.4) L 04/16/18 05:56 Hct 24.5 % (35.3-44.9) L 04/16/18 05:56 MCHC 31.0 g/dL (31.6-35.5) L 04/16/18 05:56 RDW 16.5 % (11.5-14.5) H 04/16/18 05:56 Plt Count 132 K/mcL (140-400) L 04/16/18 05:56 Neutrophils # 9.4 K/mcL (1.6-8.9) H 04/16/18 05:56 Monocytes # 1.6 K/mcL (0.0-1.3) H 04/16/18 05:56 Nucleated RBCs/100 WBC 0.2 /100 WBC (0) H 04/16/18 05:56 PT 12.9 Seconds (9.4-12.1) H 04/11/18 17:11 ABG pO2 53 mmHg (85-104) L 04/13/18 11:16 ABG HCO3 30 mEq/L (21-27) H 04/13/18 11:16 ABG Total CO2 31 mEq/L (20-26) H 04/13/18 11:16 ABG O2 Saturation 88 % (95-98) L 04/13/18 11:16 ABG Base Excess 5 mEq/L (-2 to 3) H 04/13/18 11:16 VBG pH 7.49 pH Units (7.32-7.42) H 04/11/18 17:38 VBG pCO2 36 mmHg (41-51) L 04/11/18 17:38 VBG pO2 104 mmHg (25-50) H 04/11/18 17:38 BUN 35 mg/dL (8-23) H 04/16/18 05:55 Creatinine 1.22 mg/dL (0.60-1.20) H 04/16/18 05:55 Est GFR ( Amer) 50 (> 60) L 04/16/18 05:55 Est GFR (Non-Af Amer) 42 (> 60) L 04/16/18 05:55 BUN/Creatinine Ratio 29 (6-26) H 04/16/18 05:55 Calcium 8.5 mg/dL (8.6-10.3) L 04/16/18 05:55 B-Natriuretic Peptide 274 pg/mL (Less than 100) H 04/11/18 17:26 Albumin 3.3 g/dL (3.5-5.7) L 04/11/18 17:11 Albumin/Globulin Ratio 0.9 (1.1-2.2) L 04/11/18 17:11 Urine Protein 30 mg/dL (Neg-Trace) H 04/11/18 18:25 Urine Ketones 15 mg/dL (Negative) H 04/11/18 18:25 General appearance: Present: no acute distress - Respiratory Respiratory exam: Present: decreased breath sounds Additional comments: Occasional rhonchi noted. - Cardiovascular Cardiovascular exam: Present: +S1, +S2 - GI/Abdominal GI/Abdominal exam: Present: normal bowel sounds, soft - Extremities Exam Extremities exam: Present: normal capillary refill, normal inspection - Neurological Exam Neurological exam: Present: alert Additional comments: Oriented to name only. Follows simple commands. - Skin Skin exam: Present: dry, pallor, warm Palliative Quality Palliative Quality: Screen for Code Status: Yes, Screen for Goals of Care: Yes, Screen for Pain: Yes, If Pain Regimen Started, Initiate Bowel Regimen: NA, Screen for Nausea/Vomitting: Yes - Labs CBC & Chem 7: 04/16/18 05:56 04/16/18 05:55 Labs: Laboratory Results - last 24 hr 04/15/18 04/15/18 04/15/18 05:45 11:05 16:43 WBC RBC Hgb Hct MCV MCH MCHC RDW Plt Count MPV Immature Gran % Seg Neutrophils % Lymphocytes % Monocytes % Eosinophils % Basophils % Neutrophils # Lymphocytes # Monocytes # Eosinophils # Basophils # Nucleated RBCs/100 WBC Sodium Potassium Chloride Carbon Dioxide BUN Creatinine Est GFR ( Amer) Est GFR (Non-Af Amer) BUN/Creatinine Ratio Glucose POC Glucose 86 102 H 99 Calculated Osmolality Calcium 04/16/18 04/16/18 05:55 05:56 WBC 12.9 H RBC 2.45 L Hgb 7.6 L Hct 24.5 L MCV 100.0 MCH 31.0 MCHC 31.0 L RDW 16.5 H Plt Count 132 L MPV 11.6 Immature Gran % 3.9 Seg Neutrophils % 73.1 Lymphocytes % 10.4 Monocytes % 12.2 Eosinophils % 0.2 Basophils % 0.2 Neutrophils # 9.4 H Lymphocytes # 1.3 Monocytes # 1.6 H Eosinophils # 0.0 Basophils # 0.0 Nucleated RBCs/100 WBC 0.2 H Sodium 141 Potassium 4.2 Chloride 104 Carbon Dioxide 28 BUN 35 H Creatinine 1.22 H Est GFR ( Amer) 50 L Est GFR (Non-Af Amer) 42 L BUN/Creatinine Ratio 29 H Glucose 91 POC Glucose Calculated Osmolality 300 Calcium 8.5 L - ABG Interpretation ABG results: ABG ABG pH 7.44 pH Units (7.32-7.45) 04/13/18 11:16 ABG pCO2 44 mmHg (35-45) 04/13/18 11:16 ABG pO2 53 mmHg (85-104) L 04/13/18 11:16 ABG O2 Saturation 88 % (95-98) L 04/13/18 11:16 PT/INR, D-dimer PT 12.9 Seconds (9.4-12.1) H 04/11/18 17:11 Consult Discharge Plan - Plan Referrals: Maria Eugenia English MD [Primary Care Provider] -
[2018-04-16] MEDS ORDERED: Vancomycin 500 MG in 0.9 % Sodium Chloride Mini Bag 100 ML IVPB ONE (16:00)
[2018-04-17] MEDS: Albuterol 2.5 MG/3 ML NEBULIZER IH SCH ×4 (03:56→22:05)
[2018-04-17] MEDS: Acetylcysteine 10% 2 ML INHSOL IH SCH ×4 (03:56→22:05)
[2018-04-17 06:50] LABS: Basophils % 0.2 %; Eosinophils # 0.1 K/mcL (0.0-0.6); Eosinophils % 0.6 %; Hematocrit 22.9 % (35.3-44.9); Hemoglobin 7.1 g/dL (11.5-15.4); Immature Granulocytes % 5.8 % (0-4); Lymphocytes # 1.5 K/mcL (0.6-4.6); Lymphocytes % 11.2 %; Mean Corpuscular Hemoglobin 30.7 pg (28.0-33.3); Mean Corpuscular Volume 99.1 fL (83.0-100.0); Monocytes # 1.7 K/mcL (0.0-1.3); Monocytes % 12.2 %; Neutrophils # 9.6 K/mcL (1.6-8.9); Nucleated Red Blood Cells 0.2 /100 WBC (0); Platelet Count 139 K/mcL (140-400); Red Blood Count 2.31 M/mcL (3.82-4.97); Red Cell Distribution Width 16.9 % (11.5-14.5)
[2018-04-17 07:08] LABS: BUN/Creatinine Ratio 27 (6-26); Blood Urea Nitrogen 27 mg/dL (8-23); Calcium 8.5 mg/dL (8.6-10.3); Carbon Dioxide 28 mEq/L (23-29); Chloride 104 mEq/L (98-107); Glucose 122 mg/dL (70-105); Osmolality,Calculated 296 (280-300); Potassium 3.6 mEq/L (3.5-5.1); Sodium 140 mEq/L (136-145); eGFR For Non-African Americans 53 (> 60)
[2018-04-17 07:46] LABS: Anisocytosis 1+ (Not Present); Platelet Estimate Slight Decrease (Normal)
[2018-04-17 07:47] LABS: Poikilocytosis 1+ (Not Present)
[2018-04-17 07:48] LABS: Stomatocytes 1+ (Not Present)
--- NOTE | 2018-04-17 09:14 | Internal Med Progress Note ---
Hospitalist Progress Note - Encounter Date of Encounter: 04/17/18 Time of Encounter: 09:12 - Subjective Interval History: Ms King is currently admitted for resp failure and probable MSSA pneumonia. She remains moderate to high risk due to potential for worsening clinical status. Ms King is doing OK. She seems to be moving more air today. Her hemoglobin remains low - no obvious bleeding. She feels dyspneic still. No fever or chills. No CP. No diarrhea though has hemorrhoid making it difficult to sit up long. - Exam Vitals: Temp Pulse Resp BP Pulse Ox 98.6 F 100 16 120/75 96 04/17/18 07:41 04/17/18 07:41 04/17/18 07:41 04/17/18 07:41 04/17/18 07:41 Exam: General: Alert. Tachypneic but better than yesterday. Skin: Normal color, no rash, no lesions. H: Normocephalic. EENT: EOMI, pupils equal and reactive. Mucus membranes moist. Cardiovascular: Normal S1 & S2. No JVD. Pulse regular. Systolic murmur heard. Lungs: Some rhonchi on L but appears to be moving more air today. Abdomen: Soft, non-tender, no rigidity. Normal bowel sounds. Extremities: No deformity, no edema or tenderness Neurological: Moves all extremities. Pulses: Carotid and radial pulses normal +2. Rest of the physical exam is non contributory - Assessment and Plan (1) Acute and chronic respiratory failure with hypoxia Current Visit: Yes Status: Acute Assessment and Plan: Pt appears to be breathing better today. Will recheck CXR today or tomorrow. Continue current respiratory management. (2) Mucus plugging of bronchi Current Visit: Yes Status: Acute Assessment and Plan: She has been receiving chest percussive therapy. Continue supportive care. (3) Pneumonia Current Visit: No Status: Suspected Assessment and Plan: Pt slowly improving with treatment. Currently on Vancomycin. Will continue today and consider change to another abx in next 1-2 days. (4) COPD (chronic obstructive pulmonary disease) Current Visit: Yes Status: Chronic Assessment and Plan: Chronic issue. Continue aerosols and oxygen. Increase activity. (5) Diastolic CHF Current Visit: Yes Status: Chronic Assessment and Plan: hx of diastolic CHF She received a dose of Lasix and it appears to have helped. Continue Lasix for now. (6) Decubitus ulcer of sacral region, stage 1 Current Visit: Yes Status: Acute Assessment and Plan: daily dressing change (7) Chronic respiratory failure with hypoxia Current Visit: Yes Status: Chronic Assessment and Plan: Chronically on 5 liters NC at home. 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 (9) Acute metabolic encephalopathy Current Visit: Yes Status: Resolved (10) Anemia Current Visit: Yes Status: Chronic Assessment and Plan: Hemoglobin fluctuating. No signs of bleeding. Recheck tomorrow - if lower will transfuse. (11) Anxiety and depression Current Visit: Yes Status: Chronic Assessment and Plan: Currently is not an issue. - Time Spent with Patient Total time spent is greater than 50% in coordination of care (as documented) at patient's floor/unit and/or counseling patient: Internal Medicine: Result - Labs CBC & Chem 7: 04/17/18 06:30 04/17/18 06:30 Labs: Short CBC 04/17/18 Range/Units 06:30 WBC 13.7 H (4.3-11.1) K/mcL Hgb 7.1 L (11.5-15.4) g/dL Hct 22.9 L (35.3-44.9) % Plt Count 139 L (140-400) K/mcL Neutrophils # 9.6 H (1.6-8.9) K/mcL BMP 04/17/18 06:30 Sodium 140 Potassium 3.6 Chloride 104 Carbon Dioxide 28 BUN 27 H Creatinine 0.99 Glucose 122 H Calcium 8.5 L - ABG Interpretation ABG results: ABG ABG pH 7.44 pH Units (7.32-7.45) 04/13/18 11:16 ABG pCO2 44 mmHg (35-45) 04/13/18 11:16 ABG pO2 53 mmHg (85-104) L 04/13/18 11:16 ABG O2 Saturation 88 % (95-98) L 04/13/18 11:16 PT/INR, D-dimer PT 12.9 Seconds (9.4-12.1) H 04/11/18 17:11 Consult Discharge Plan - Plan Referrals: Maria Eugenia English MD [Primary Care Provider] - (3) Pneumonia Qualifiers: Pneumonia type: due to methicillin-sensitive Staphylococcus aureus (MSSA) Laterality: right Lung location: lower lobe of lung Qualified Code(s): J15.211 - Pneumonia due to Methicillin susceptible Staphylococcus aureus (4) COPD (chronic obstructive pulmonary disease) Qualifiers: COPD type: emphysema Emphysema type: panlobular Qualified Code(s): J43.1 - Panlobular emphysema (5) Diastolic CHF Qualifiers: Heart failure chronicity: chronic Qualified Code(s): I50.32 - Chronic diastolic (congestive) heart failure (10) Anemia Qualifiers: Anemia type: other cause Other causes of anemia: chronic disease, other Qualified Code(s): D63.8 - Anemia in other chronic diseases classified elsewhere
[2018-04-17] MEDS: *HR* Heparin 5,000 UNIT/ML VIAL SQ SCH ×3 (09:44→23:39)
[2018-04-17] MEDS ORDERED: Furosemide 40 MG/4 ML VIAL IVP ONE (14:06)
[2018-04-17] MEDS: Hydrocortisone Rectal 2.5% CRM 28 GM TUBE RC SCH ×3 (15:37→22:33)
[2018-04-18] MEDS: Albuterol 2.5 MG/3 ML NEBULIZER IH SCH ×4 (03:51→21:21)
[2018-04-18] MEDS: Acetylcysteine 10% 2 ML INHSOL IH SCH ×4 (03:51→21:21)
[2018-04-18 06:22] LABS: Hematocrit 21.3 % (35.3-44.9); Hemoglobin 6.5 g/dL (11.5-15.4); Mean Corpuscular HGB Conc 30.5 g/dL (31.6-35.5); Mean Corpuscular Hemoglobin 29.8 pg (28.0-33.3); Mean Corpuscular Volume 97.7 fL (83.0-100.0); Mean Platelet Volume 12.3 fL (9.4-12.4); Platelet Count 140 K/mcL (140-400); Red Blood Count 2.18 M/mcL (3.82-4.97); Red Cell Distribution Width 16.9 % (11.5-14.5)
[2018-04-18 06:46] LABS: BUN/Creatinine Ratio 24 (6-26); Blood Urea Nitrogen 24 mg/dL (8-23); Calcium 8.3 mg/dL (8.6-10.3); Carbon Dioxide 29 mEq/L (23-29); Chloride 104 mEq/L (98-107); Glucose 106 mg/dL (70-105); Magnesium 1.7 mg/dL (1.6-2.6); Osmolality,Calculated 296 (280-300); Potassium 3.5 mEq/L (3.5-5.1); Sodium 141 mEq/L (136-145); eGFR For Non-African Americans 52 (> 60)
[2018-04-18] MEDS ORDERED: Aminoglycoside Consult 1 EACH MC ONE (08:54)
[2018-04-18] MEDS ORDERED: Furosemide 20 MG/2 ML VIAL IVP ONE ×2 (09:24→09:25)
--- NOTE | 2018-04-18 09:24 | Internal Med Progress Note ---
Hospitalist Progress Note - Encounter Date of Encounter: 04/18/18 Time of Encounter: 09:24 - Subjective Interval History: Ms King is currently admitted for resp failure and probable MSSA pneumonia. She remains moderate to high risk due to potential for worsening clinical status. Ms King just got back to bed. She is very dyspneic with movement. Her hemoglobin is much lower today. No fever or chills. Denies abd pain. Feels her breathing has been OK but worse now after moving. No urinary symptoms. - Exam Vitals: Temp Pulse Resp BP Pulse Ox 98.0 F 102 14 131/71 90 04/18/18 08:00 04/18/18 08:00 04/18/18 08:00 04/18/18 08:00 04/18/18 08:00 Exam: General: Alert. Remains tachypneic. Appears to be oriented - understands need for blood transfusion. Skin: Pale, no rash, no lesions. H: Normocephalic. EENT: EOMI, pupils equal and reactive. Mucus membranes dry. Cardiovascular: Normal S1 & S2. No JVD. Pulse regular. Systolic murmur heard. Lungs: Moving better air today. Some rhonchi especially on L. Abdomen: Soft, non-tender, no rigidity. Normal bowel sounds. Extremities: No deformity, no edema or tenderness Neurological: Moves all extremities. Pulses: Carotid and radial pulses normal +2. Rest of the physical exam is non contributory - Assessment and Plan (1) Anemia Current Visit: Yes Status: Chronic Assessment and Plan: Hemoglobin now below 7. No overt signs of bleeding. Will transfuse 2 units today with Lasix between and after. IV iron for 3 days as well. (2) Acute and chronic respiratory failure with hypoxia Current Visit: Yes Status: Acute Assessment and Plan: Persists. CXR today shows increased R pleural effusion with small L pleural effusion as well as pulmonary edema. Pt anemic as well. Will transfuse and give Lasix. (3) Diastolic CHF Current Visit: Yes Status: Chronic Assessment and Plan: CXR shows evidence of pulmonary edema. Will receive more Lasix today with blood transfusion. (4) Mucus plugging of bronchi Current Visit: Yes Status: Acute Assessment and Plan: Appears to have improved. (5) Pneumonia Current Visit: No Status: Suspected Assessment and Plan: Currently on IV abx. Will switch today. (6) COPD (chronic obstructive pulmonary disease) Current Visit: Yes Status: Chronic Assessment and Plan: Chronic issue. Continue aerosols and oxygen. No wheezing at this time. (7) Chronic respiratory failure with hypoxia Current Visit: Yes Status: Chronic Assessment and Plan: Chronically on 5 liters NC at home. 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 (9) Anxiety and depression Current Visit: Yes Status: Chronic Assessment and Plan: Currently is not an issue. (10) Decubitus ulcer of sacral region, stage 1 Current Visit: Yes Status: Acute Assessment and Plan: daily dressing change - Time Spent with Patient Total time spent is greater than 50% in coordination of care (as documented) at patient's floor/unit and/or counseling patient: Internal Medicine: Result - Labs CBC & Chem 7: 04/18/18 05:42 04/18/18 05:42 Labs: Short CBC 04/18/18 Range/Units 05:42 WBC 10.0 (4.3-11.1) K/mcL Hgb 6.5 L (11.5-15.4) g/dL Hct 21.3 L (35.3-44.9) % Plt Count 140 (140-400) K/mcL BMP 04/18/18 05:42 Sodium 141 Potassium 3.5 Chloride 104 Carbon Dioxide 29 BUN 24 H Creatinine 1.00 Glucose 106 H Calcium 8.3 L - ABG Interpretation ABG results: ABG ABG pH 7.44 pH Units (7.32-7.45) 04/13/18 11:16 ABG pCO2 44 mmHg (35-45) 04/13/18 11:16 ABG pO2 53 mmHg (85-104) L 04/13/18 11:16 ABG O2 Saturation 88 % (95-98) L 04/13/18 11:16 PT/INR, D-dimer PT 12.9 Seconds (9.4-12.1) H 04/11/18 17:11 - Impressions Impressions Chest X-Ray 04/18/18 08:00 IMPRESSION: 1. Moderate size right pleural effusion, increased from prior study. Small left pleural effusion. 2. Interval improvement in left lung opacification. 3. Cardiomegaly and pulmonary edema. D/ / Blade Ceja MD / Blade Ceja MD Interpreting Provider: Blade Ceja MD Consult Discharge Plan - Plan Referrals: Maria Eugenia English MD [Primary Care Provider] - (1) Anemia Qualifiers: Anemia type: other cause Other causes of anemia: chronic disease, other Qualified Code(s): D63.8 - Anemia in other chronic diseases classified elsewhere (3) Diastolic CHF Qualifiers: Heart failure chronicity: acute on chronic Qualified Code(s): I50.33 - Acute on chronic diastolic (congestive) heart failure (5) Pneumonia Qualifiers: Pneumonia type: due to methicillin-sensitive Staphylococcus aureus (MSSA) Laterality: right Lung location: lower lobe of lung Qualified Code(s): J15.211 - Pneumonia due to Methicillin susceptible Staphylococcus aureus (6) COPD (chronic obstructive pulmonary disease) Qualifiers: COPD type: emphysema Emphysema type: panlobular Qualified Code(s): J43.1 - Panlobular emphysema
[2018-04-18] MEDS ORDERED: 0.9 % Sodium Chloride 250 ML ONE ×2 (09:49→15:10)
[2018-04-18] MEDS: Hydrocortisone Rectal 2.5% CRM 28 GM TUBE RC SCH ×3 (10:58→22:15)
[2018-04-18] MEDS: levoFLOXacin 750 MG TABLET PO SCH (10:58)
[2018-04-18] MEDS: Iron Sucrose Complex 200 MG in 0.9 % Sodium Chloride 100 ML IVPB SCH (13:00)
[2018-04-18 15:33] LABS: Eosinophils # 0.2 K/mcL (0.0-0.6); Hematocrit 27.3 % (35.3-44.9); Mean Corpuscular HGB Conc 31.9 g/dL (31.6-35.5); Mean Corpuscular Hemoglobin 31.3 pg (28.0-33.3); Mean Corpuscular Volume 98.2 fL (83.0-100.0); Nucleated Red Blood Cells 0.2 /100 WBC (0); Platelet Count 143 K/mcL (140-400); Red Blood Count 2.78 M/mcL (3.82-4.97); Red Cell Distribution Width 16.5 % (11.5-14.5)
[2018-04-18 15:42] LABS: Hemoglobin 8.7 g/dL (11.5-15.4)
[2018-04-18 16:06] LABS: Monocytes # 0.6 K/mcL (0.0-1.3); Neutrophils # 7.1 K/mcL (1.6-8.9); Platelet Estimate Normal (Normal)
[2018-04-19] MEDS: Hydrocortisone Rectal 2.5% CRM 28 GM TUBE RC SCH ×3 (02:44→13:00)
[2018-04-19] MEDS: Acetylcysteine 10% 2 ML INHSOL IH SCH ×4 (04:39→22:40)
[2018-04-19] MEDS: Albuterol 2.5 MG/3 ML NEBULIZER IH SCH ×4 (04:39→22:40)
[2018-04-19 07:53] LABS: Hematocrit 30.1 % (35.3-44.9); Hemoglobin 9.5 g/dL (11.5-15.4); Mean Corpuscular HGB Conc 31.6 g/dL (31.6-35.5); Mean Corpuscular Hemoglobin 29.9 pg (28.0-33.3); Mean Corpuscular Volume 94.7 fL (83.0-100.0); Mean Platelet Volume 12.3 fL (9.4-12.4); Red Blood Count 3.18 M/mcL (3.82-4.97); Red Cell Distribution Width 18.3 % (11.5-14.5)
[2018-04-19 07:56] LABS: BUN/Creatinine Ratio 21 (6-26); Blood Urea Nitrogen 18 mg/dL (8-23); Calcium 8.5 mg/dL (8.6-10.3); Carbon Dioxide 32 mEq/L (23-29); Chloride 103 mEq/L (98-107); Glucose 99 mg/dL (70-105); Osmolality,Calculated 294 (280-300); Potassium 3.4 mEq/L (3.5-5.1); Sodium 141 mEq/L (136-145); eGFR For Non-African Americans > 60 (> 60)
[2018-04-19] MEDS: Iron Sucrose Complex 200 MG in 0.9 % Sodium Chloride 100 ML IVPB SCH (09:30)
--- NOTE | 2018-04-19 09:34 | Palliative Progress Note ---
Date of Encounter: 04/19/18 Time of Encounter: 09:25 - Assessment and plan (1) Dyspnea Current Visit: No Status: Acute Qualifiers: Dyspnea type: shortness of breath Qualified Code(s): R06.02 - Shortness of breath; R06.00 - Dyspnea, unspecified; R06.01 - Orthopnea (2) Anxiety and depression Current Visit: Yes Status: Chronic Assessment and plan: Continue with Celexa. (3) Constipation Current Visit: Yes Status: Acute Assessment and plan: Continues with stool softeners. + mod soft BM 04/17. MOnitor Qualifiers: Constipation type: unspecified constipation type Qualified Code(s): K59.00 - Constipation, unspecified (4) Goals of care, counseling/discussion Current Visit: No Status: Acute Assessment and plan: Met twice with pt/family today for total of 70 minutes. Attempted goals of care discussion , however, on my first visit, they were upset that hemorrhoids have not been treated or addressed. Patient was awake, but did not participate in discussion, and would not answer many questions other than "I'm not sure", or "I don't care". Desired this to be examined by surgery prior to any discussion of discharge. D/W Dr. Scott. Dr. Land did speak with family and consult was made to [facility]. Patient was seen and not felt to be candidate for procedure - Miralax was ordered. I met with family again after this evaluation, they are still upset about hemorrhoids, stating that she is constantly having urge to go to have bowel movement which increases her anxiety, and makes her shortness of breath worse and increases heart rate. They stated "part of comfort care is taking care of her hemorrhoids". I did order Anusol on top of Miralax and discussed with Patricia Gomez CNP. After this , did discuss discharge planning, goals of care, and code status. They do not want hospice care at this time, and want to maintain current code status. They desire her to come back to hospital for treatment. We did discuss that with her fragile pulmonary status and debility, she is likely to continue to return frequently to the hospital. They verbalized understanding. I did provide them with the information for hospice care, if they would ever decide to transition, and discussed they would need to meet with drug abuse social worker at the [facility]. Right now , unless they change their mind, she will return to [facility] under a skilled level of care. (5) Acute and chronic respiratory failure with hypoxia Current Visit: Yes Status: Acute (6) Mucus plugging of bronchi Current Visit: Yes Status: Acute (7) Pulmonary hypertension Current Visit: No Status: Chronic - Time Spent With Patient Total time spent is greater than 50% in coordination of care (as documented) at patient's floor/unit and/or counseling patient: Greater than 35 minutes (70 min spent in counseling and coordination of care.) - Subjective Interval history: Patient resting quietly, awake and oriented to name and place. Can follow simple commands. Appears tachypneic with conversation, but denies she feels short of breath. Denies pain or discomfort. States "I'm just tired". Received some blood over weekend - hgb stable today at 9.5. Last CXR with some improvement Left opacification, right pleural effusion increased. No family at bedside. - Constitutional Vitals: Abnormal lab results RBC 3.18 M/mcL (3.82-4.97) L 04/19/18 06:57 Hgb 9.5 g/dL (11.5-15.4) L 04/19/18 06:57 Hct 30.1 % (35.3-44.9) L 04/19/18 06:57 RDW 18.3 % (11.5-14.5) H 04/19/18 06:57 Immature Gran % 5.8 % (0-4) H 04/17/18 06:30 Nucleated RBCs/100 WBC 0.2 /100 WBC (0) H 04/18/18 15:12 Immature Plt Fraction 12.0 % (1.1-6.1) H 04/19/18 06:57 Poikilocytosis 1+ (Not Present) A 04/17/18 06:30 Anisocytosis 1+ (Not Present) A 04/17/18 06:30 Stomatocytes 1+ (Not Present) A 04/17/18 06:30 PT 12.9 Seconds (9.4-12.1) H 04/11/18 17:11 ABG pO2 53 mmHg (85-104) L 04/13/18 11:16 ABG HCO3 30 mEq/L (21-27) H 04/13/18 11:16 ABG Total CO2 31 mEq/L (20-26) H 04/13/18 11:16 ABG O2 Saturation 88 % (95-98) L 04/13/18 11:16 ABG Base Excess 5 mEq/L (-2 to 3) H 04/13/18 11:16 VBG pH 7.49 pH Units (7.32-7.42) H 04/11/18 17:38 VBG pCO2 36 mmHg (41-51) L 04/11/18 17:38 VBG pO2 104 mmHg (25-50) H 04/11/18 17:38 Potassium 3.4 mEq/L (3.5-5.1) L 04/19/18 06:57 Carbon Dioxide 32 mEq/L (23-29) H 04/19/18 06:57 POC Glucose 116 mg/dL (70-99) H 04/17/18 12:17 Calcium 8.5 mg/dL (8.6-10.3) L 04/19/18 06:57 B-Natriuretic Peptide 274 pg/mL (Less than 100) H 04/11/18 17:26 Albumin 3.3 g/dL (3.5-5.7) L 04/11/18 17:11 Albumin/Globulin Ratio 0.9 (1.1-2.2) L 04/11/18 17:11 Urine Protein 30 mg/dL (Neg-Trace) H 04/11/18 18:25 Urine Ketones 15 mg/dL (Negative) H 04/11/18 18:25 - Respiratory Respiratory exam: Present: tachypnea Additional comments: Occasional rhonchi noted - Cardiovascular Cardiovascular exam: Present: +S1, +S2 - GI/Abdominal GI/Abdominal exam: Present: normal bowel sounds, soft - Extremities Exam Extremities exam: Present: normal capillary refill, normal inspection - Neurological Exam Neurological exam: Present: alert Additional comments: Oriented to name and place only. Cannot recall why she is here or cannot tell me anything regarding her clinical condition. Answers most questions with "I don 't know". - Skin Skin exam: Present: dry, pallor, warm Palliative Quality Palliative Quality: Screen for Code Status: Yes, Screen for Goals of Care: Yes, Screen for Pain: Yes, If Pain Regimen Started, Initiate Bowel Regimen: NA, Screen for Nausea/Vomitting: Yes - Labs CBC & Chem 7: 04/19/18 06:57 04/19/18 06:57 Labs: Laboratory Results - last 24 hr 04/18/18 04/18/18 04/19/18 08:27 15:12 06:57 WBC 9.9 9.8 RBC 2.78 L 3.18 L Hgb 8.7 L D 9.5 L Hct 27.3 L 30.1 L MCV 98.2 94.7 MCH 31.3 29.9 MCHC 31.9 31.6 RDW 16.5 H 18.3 H Plt Count 143 145 MPV 12.0 12.3 Seg Neutrophils % 72.0 Lymphocytes % 20.0 Monocytes % 6.0 Eosinophils % 2.0 Neutrophils # 7.1 Lymphocytes # 2.0 Monocytes # 0.6 Eosinophils # 0.2 Nucleated RBCs/100 WBC 0.2 H Platelet Estimate Normal Immature Plt Fraction 12.0 H Sodium Potassium Chloride Carbon Dioxide BUN Creatinine Est GFR ( Amer) Est GFR (Non-Af Amer) BUN/Creatinine Ratio Glucose Calculated Osmolality Calcium Blood Type A POSITIVE Antibody Screen NEGATIVE Crossmatch See Detail 04/19/18 06:57 WBC RBC Hgb Hct MCV MCH MCHC RDW Plt Count MPV Seg Neutrophils % Lymphocytes % Monocytes % Eosinophils % Neutrophils # Lymphocytes # Monocytes # Eosinophils # Nucleated RBCs/100 WBC Platelet Estimate Immature Plt Fraction Sodium 141 Potassium 3.4 L Chloride 103 Carbon Dioxide 32 H BUN 18 Creatinine 0.84 Est GFR ( Amer) > 60 Est GFR (Non-Af Amer) > 60 BUN/Creatinine Ratio 21 Glucose 99 Calculated Osmolality 294 Calcium 8.5 L Blood Type Antibody Screen Crossmatch - ABG Interpretation ABG results: ABG ABG pH 7.44 pH Units (7.32-7.45) 04/13/18 11:16 ABG pCO2 44 mmHg (35-45) 04/13/18 11:16 ABG pO2 53 mmHg (85-104) L 04/13/18 11:16 ABG O2 Saturation 88 % (95-98) L 04/13/18 11:16 PT/INR, D-dimer PT 12.9 Seconds (9.4-12.1) H 04/11/18 17:11 Consult Discharge Plan - Plan Referrals: Maria Eugenia English MD [Primary Care Provider] -
--- NOTE | 2018-04-19 10:12 | Internal Med Progress Note ---
<El Land - Last Filed: 04/19/18 13:52> Hospitalist Progress Note - Encounter Date of Encounter: 04/19/18 Time of Encounter: 10:20 - Subjective Interval History: Patient on Oxymask 8L. She reports improvement of fatigue with RBC infusion over the weekend. However, she is still very tired and has poor appetite. Reports palliative came by but unable to repeat plan to me. Denies CP, headaches , f/c/n/v. Denies any active bleed. Update: Family at bedside for palliative meeting. They are requesting surgical consult for possible hemorrhoid surgery before considering palliative care. - Exam Vitals: Temp Pulse Resp BP Pulse Ox 98.5 F 90 17 122/72 91 04/19/18 07:59 04/19/18 07:59 04/19/18 07:59 04/19/18 07:59 04/19/18 07:59 Exam: General: AO x 3, but cannot recall why she is at hospital. Skin: Pale, no rash, no lesions. H: Normocephalic. EENT: EOMI, pupils equal and reactive. Mucus membranes dry. Cardiovascular: Normal S1 & S2. No JVD. Pulse regular. Systolic murmur heard. Lungs: Moving better air today. Some rhonchi especially on L. Abdomen: Soft, non-tender, no rigidity. Normal bowel sounds. Extremities: No deformity, no edema or tenderness Neurological: Moves all extremities. Pulses: Carotid and radial pulses normal +2. Rest of the physical exam is non contributory - Assessment and Plan (1) Anemia Current Visit: Yes Status: Acute Assessment and Plan: Improved. Hgb uptrending s/p 2 units RBCs over the weekend. Continue with Ferrous sulfate, Venofer infusion. Palliative meeting today with family. Family and patient requesting surgical consult for hemorrhoid removal prior to considering palliative care. Surgical consult and recommendations appreciated. (2) Acute and chronic respiratory failure with hypoxia Current Visit: Yes Status: Acute Assessment and Plan: On Oxymask 8L CXR with increased R pleural effusion with small L pleural effusion as well as pulmonary edema yesterday. Continue Levaquin Day #2 for pneumonia Pt anemic as well. (3) Hypokalemic Current Visit: Yes Status: Acute Assessment and Plan: K+ = 3.4 KCl this AM. Recheck tomorrow. (4) Diastolic CHF Current Visit: Yes Status: Chronic Assessment and Plan: (5) Mucus plugging of bronchi Current Visit: Yes Status: Acute Assessment and Plan: Appears to have improved. (6) Pneumonia Current Visit: No Status: Suspected Assessment and Plan: Continue with Levaquin Day #2. Culture sensitive to Levaquin. (7) COPD (chronic obstructive pulmonary disease) Current Visit: Yes Status: Chronic Assessment and Plan: Chronic issue. Continue aerosols and oxygen. No wheezing at this time. (8) Chronic respiratory failure with hypoxia Current Visit: Yes Status: Chronic Assessment and Plan: Chronically on 5 liters NC at home. 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 (9) Anxiety and depression Current Visit: Yes Status: Chronic Assessment and Plan: Currently is not an issue. (10) Decubitus ulcer of sacral region, stage 1 Current Visit: Yes Status: Acute Assessment and Plan: daily dressing change DVT Prophylaxis: Subcutaneous heparin. - Time Spent with Patient Total time spent is greater than 50% in coordination of care (as documented) at patient's floor/unit and/or counseling patient: Greater than 35 minutes Plan of Care Discussed with: patient Internal Medicine: Result - Labs CBC & Chem 7: 04/19/18 06:57 04/19/18 06:57 Labs: Short CBC 04/18/18 04/19/18 Range/Units 15:12 06:57 WBC 9.9 9.8 (4.3-11.1) K/mcL Hgb 8.7 L D 9.5 L (11.5-15.4) g/dL Hct 27.3 L 30.1 L (35.3-44.9) % Plt Count 143 145 (140-400) K/mcL Neutrophils # 7.1 (1.6-8.9) K/mcL BMP 04/19/18 06:57 Sodium 141 Potassium 3.4 L Chloride 103 Carbon Dioxide 32 H BUN 18 Creatinine 0.84 Glucose 99 Calcium 8.5 L - ABG Interpretation ABG results: ABG ABG pH 7.44 pH Units (7.32-7.45) 04/13/18 11:16 ABG pCO2 44 mmHg (35-45) 04/13/18 11:16 ABG pO2 53 mmHg (85-104) L 04/13/18 11:16 ABG O2 Saturation 88 % (95-98) L 04/13/18 11:16 PT/INR, D-dimer PT 12.9 Seconds (9.4-12.1) H 04/11/18 17:11 Consult Discharge Plan - Plan Referrals: Maria Eugenia English MD [Primary Care Provider] - <TylerSrinivasanOusmane A - Last Filed: 04/19/18 18:54> Hospitalist Progress Note - Encounter Date of Encounter: 04/19/18 - Exam Vitals: Temp Pulse Resp BP Pulse Ox 98.5 F 95 16 121/68 95 04/19/18 15:39 04/19/18 15:39 04/19/18 16:18 04/19/18 15:39 04/19/18 16:18 - Assessment and Plan (1) Anemia Current Visit: Yes Status: Chronic (2) Acute and chronic respiratory failure with hypoxia Current Visit: Yes Status: Acute (3) Diastolic CHF Current Visit: Yes Status: Chronic (4) Mucus plugging of bronchi Current Visit: Yes Status: Acute (5) Pneumonia Current Visit: No Status: Suspected (6) COPD (chronic obstructive pulmonary disease) Current Visit: Yes Status: Chronic (7) Chronic respiratory failure with hypoxia Current Visit: Yes Status: Chronic (8) Hypertension with renal disease Current Visit: Yes Status: Chronic (9) Anxiety and depression Current Visit: Yes Status: Chronic (10) Decubitus ulcer of sacral region, stage 1 Current Visit: Yes Status: Acute - Time Spent with Patient Total time spent is greater than 50% in coordination of care (as documented) at patient's floor/unit and/or counseling patient: Internal Medicine: Result - Labs CBC & Chem 7: 04/19/18 06:57 04/19/18 06:57 Labs: Short CBC 04/19/18 Range/Units 06:57 WBC 9.8 (4.3-11.1) K/mcL Hgb 9.5 L (11.5-15.4) g/dL Hct 30.1 L (35.3-44.9) % Plt Count 145 (140-400) K/mcL BMP 04/19/18 06:57 Sodium 141 Potassium 3.4 L Chloride 103 Carbon Dioxide 32 H BUN 18 Creatinine 0.84 Glucose 99 Calcium 8.5 L - ABG Interpretation ABG results: ABG ABG pH 7.44 pH Units (7.32-7.45) 04/13/18 11:16 ABG pCO2 44 mmHg (35-45) 04/13/18 11:16 ABG pO2 53 mmHg (85-104) L 04/13/18 11:16 ABG O2 Saturation 88 % (95-98) L 04/13/18 11:16 PT/INR, D-dimer PT 12.9 Seconds (9.4-12.1) H 04/11/18 17:11 - Attending Attestation I examined this patient and my medical decision-making was reviewed with the Resident Physician on 04/19/18. I agree with the documented findings, disposition and treatment plan as described except to the extent set forth below. Ms King is currently admitted for acute resp failure. She remains moderate to high risk due to potential for worsening clinical disease. Ms King is breathing somewhat better today it appears. No fever or chills. No CP. Tolerated blood transfusion. Exam alert Comfortable lying in bed Mucus membranes dry Heart reg No wheeze at this time Abd soft I/P 1. Resp failure 2. MSSA pneumonia Family meeting with palliative today. ? Hospice Further diagnoses and plan as above. <El Land - Last Filed: 04/19/18 13:52> (1) Anemia Qualifiers: Anemia type: other cause Other causes of anemia: acute posthemorrhagic Qualified Code(s): D62 - Acute posthemorrhagic anemia <Ousmane Scott - Last Filed: 04/19/18 18:54> (1) Anemia Qualifiers: Anemia type: other cause Other causes of anemia: chronic disease, other Qualified Code(s): D63.8 - Anemia in other chronic diseases classified elsewhere (3) Diastolic CHF Qualifiers: Heart failure chronicity: acute on chronic Qualified Code(s): I50.33 - Acute on chronic diastolic (congestive) heart failure (5) Pneumonia Qualifiers: Pneumonia type: due to methicillin-sensitive Staphylococcus aureus (MSSA) Laterality: right Lung location: lower lobe of lung Qualified Code(s): J15.211 - Pneumonia due to Methicillin susceptible Staphylococcus aureus (6) COPD (chronic obstructive pulmonary disease) Qualifiers: COPD type: emphysema Emphysema type: panlobular Qualified Code(s): J43.1 - Panlobular emphysema
[2018-04-19] MEDS: Acetaminophen 325 MG TABLET PO PRN ×2 (12:30→20:07)
--- NOTE | 2018-04-19 14:40 | General Surgery Consult Note ---
Date of Encounter: 04/19/18 Time of Encounter: 14:40 Past Med Surg Social Fam HX - Past Medical History Medical history: aortic aneurysm, arthritis, CHF, COPD, CVA, hypertension, other Additional medical history: Left ankle fracture, left hip fracture, left wrist fracture Psychiatric history: anxiety, depression - Past Surgical History Surgical History: carotid endarterectomy, cataract Additional surgical history: broken ankle - Social History Smoking Status: Former smoker Smokeless Tobacco Status: No Alcohol use: none Drug use: none - Family History Mother Adopted: No Living Status: Hx Family Cardiac Disorders: Yes (mother) Hx Family Respiratory Disorders: No Hx Family Cancer: No Hx Family GI Disorders: No Hx Family Endocrine Disorder: No Hx Family Neuromuscular Disorders: No Hx Family Neurologic Disorders: No Hx Family HEENT Disorders: No Hx Family Autoimmune Disorders: No Medications and Allergies Ergocalciferol (VITAMIN D2) [Vitamin D] 400 unit PO BID 02/19/18 [History] Vit A/C/E AC/Znox/Cupric Oxide [Eye Vitamin-Minerals Tablet] 1 tab PO DAILY [History] Aspirin 325 mg PO BID #60 tablet 02/24/18 [Rx] Albuterol Sulfate [Proair Hfa] 2 puff IH Q4-6H PRN 03/01/18 [History] Citalopram [CeleXA] 20 mg PO DAILY 03/01/18 [History] Metoprolol [Lopressor] 12.5 mg PO BID 03/01/18 [History] Bethanechol Chloride [Urecholine] 10 mg PO TID 04/13/18 [History] Budesonide/Formoterol 80/4.5 [Symbicort 80/4.5] 2 puff PO BID 04/13/18 [History ] Ferrous Sulfate [Iron] 325 mg PO DAILY 04/13/18 [History] Ipratropium/Albuterol Neb [Duoneb] 3 ml IH Q6HR 04/13/18 [History] Oxycodone HCl [Oxaydo] 5 mg PO Q6H PRN 04/13/18 [History] Tamsulosin HCl [Flomax] 0.4 mg PO DAILY 04/13/18 [History] amLODIPine [Norvasc] 5 mg PO DAILY 04/13/18 [History] diazePAM [Valium] 5 mg PO DAILY PRN 04/13/18 [History] 3 Allergy/AdvReac Type Severity Reaction Status Date / Time No Known Allergies Allergy Verified 02/19/18 15:50 Review of Systems All systems PM: The remainder of the systems were reviewed and are negative General Surgery Exam Initial Vital Signs Temp Pulse Resp BP Pulse Ox 97.4 F L 84 33 122/59 99 04/11/18 17:10 04/11/18 17:10 04/11/18 17:10 04/11/18 17:10 04/11/18 17:10 Exam Initial Vital Signs Temp Pulse Resp BP Pulse Ox 97.4 F L 84 33 122/59 99 04/11/18 17:10 04/11/18 17:10 04/11/18 17:10 04/11/18 17:10 04/11/18 17:10 Results - Labs 04/19/18 06:57 04/19/18 06:57 Abnormal lab results RBC 3.18 M/mcL (3.82-4.97) L 04/19/18 06:57 Hgb 9.5 g/dL (11.5-15.4) L 04/19/18 06:57 Hct 30.1 % (35.3-44.9) L 04/19/18 06:57 RDW 18.3 % (11.5-14.5) H 04/19/18 06:57 Immature Gran % 5.8 % (0-4) H 04/17/18 06:30 Nucleated RBCs/100 WBC 0.2 /100 WBC (0) H 04/18/18 15:12 Immature Plt Fraction 12.0 % (1.1-6.1) H 04/19/18 06:57 Poikilocytosis 1+ (Not Present) A 04/17/18 06:30 Anisocytosis 1+ (Not Present) A 04/17/18 06:30 Stomatocytes 1+ (Not Present) A 04/17/18 06:30 PT 12.9 Seconds (9.4-12.1) H 04/11/18 17:11 ABG pO2 53 mmHg (85-104) L 04/13/18 11:16 ABG HCO3 30 mEq/L (21-27) H 04/13/18 11:16 ABG Total CO2 31 mEq/L (20-26) H 04/13/18 11:16 ABG O2 Saturation 88 % (95-98) L 04/13/18 11:16 ABG Base Excess 5 mEq/L (-2 to 3) H 04/13/18 11:16 VBG pH 7.49 pH Units (7.32-7.42) H 04/11/18 17:38 VBG pCO2 36 mmHg (41-51) L 04/11/18 17:38 VBG pO2 104 mmHg (25-50) H 04/11/18 17:38 Potassium 3.4 mEq/L (3.5-5.1) L 04/19/18 06:57 Carbon Dioxide 32 mEq/L (23-29) H 04/19/18 06:57 POC Glucose 116 mg/dL (70-99) H 04/17/18 12:17 Calcium 8.5 mg/dL (8.6-10.3) L 04/19/18 06:57 B-Natriuretic Peptide 274 pg/mL (Less than 100) H 04/11/18 17:26 Albumin 3.3 g/dL (3.5-5.7) L 04/11/18 17:11 Albumin/Globulin Ratio 0.9 (1.1-2.2) L 04/11/18 17:11 Urine Protein 30 mg/dL (Neg-Trace) H 04/11/18 18:25 Urine Ketones 15 mg/dL (Negative) H 04/11/18 18:25 Diabetes panel 04/19/18 Range/Units 06:57 Sodium 141 (136-145) mEq/L Potassium 3.4 L (3.5-5.1) mEq/L Chloride 103 (98-107) mEq/L Carbon Dioxide 32 H (23-29) mEq/L BUN 18 (8-23) mg/dL Creatinine 0.84 (0.60-1.20) mg/dL Glucose 99 (70-105) mg/dL Calcium 8.5 L (8.6-10.3) mg/dL Calcium panel 04/19/18 Range/Units 06:57 Calcium 8.5 L (8.6-10.3) mg/dL Pituitary panel 04/19/18 Range/Units 06:57 Sodium 141 (136-145) mEq/L Potassium 3.4 L (3.5-5.1) mEq/L Chloride 103 (98-107) mEq/L Carbon Dioxide 32 H (23-29) mEq/L BUN 18 (8-23) mg/dL Creatinine 0.84 (0.60-1.20) mg/dL Glucose 99 (70-105) mg/dL Calcium 8.5 L (8.6-10.3) mg/dL Adrenal panel 04/19/18 Range/Units 06:57 Sodium 141 (136-145) mEq/L Potassium 3.4 L (3.5-5.1) mEq/L Chloride 103 (98-107) mEq/L Carbon Dioxide 32 H (23-29) mEq/L BUN 18 (8-23) mg/dL Creatinine 0.84 (0.60-1.20) mg/dL Glucose 99 (70-105) mg/dL Calcium 8.5 L (8.6-10.3) mg/dL All other labs normal. Consult Discharge Plan - Plan Referrals: Maria Eugenia English MD [Primary Care Provider] -
--- NOTE | 2018-04-19 14:51 | Event Note ---
Date of Encounter: 04/19/18 Time of Encounter: 14:42 Patient's children and [id number] were present. Surgery was [soft] consulted for recommendations regarding possible hemhorrhoidectomy prior to hospiceand therefore an event note is sufficient. Pt is with known end-stage COPD, Pulm HTN, CHF and CKD. She and her daughter report intermittent episode of small to moderate size hemorrhoid and infrequent minor bleeding related. She denies pain or itching. Her family state they would like the "hemorrhoid removed before she goes home with hospice." Her son reports he had a hemorrhoid removed "with local anesthetic in the office and can you do this." She reports the hemorrhoid makes her feel associated needs to have a bowel movement. She feels though she holds her stool and is not able to completely evacuate her bowels. Sometimes she does have liquid regarding related. I did examine the external anal area and there was no external hemorrhoids visible. There was no bleeding or other anal abnormality noted giving way to suspicion of internal hemorrhoids. He did review with family and that if we were to proceed with possible hemorrhoid intervention for an internal hemorrhoids, this would require exam under anesthesia and she would be unlikely to be extubated. The family were all in agreement that this was not their intention. I further reviewed with them that I did support their decision for hospice and that normal was a poor surgical candidate given her pulmonary status. No surgical intervention is recommended. Given that she has episodes of holding stool, I did recommend that she take MiraLAX daily. She may hold this if she is having copious amounts of stool however I do recommend that she continue this regimen to prevent stool holding and present pressure/expulsion of the hemorrhoid. No further surgical intervention or assessment indicated.
[2018-04-19] MEDS: Hydrocortisone Acetate 25 MG RECTAL SUPPOSITORY RC SCH (20:10)
[2018-04-19] MEDS: Ondansetron 4 MG/2 ML VIAL IVP PRN (20:13)
[2018-04-20] MEDS: Albuterol 2.5 MG/3 ML NEBULIZER IH SCH ×4 (04:44→22:17)
[2018-04-20] MEDS: Acetylcysteine 10% 2 ML INHSOL IH SCH ×4 (04:44→22:17)
[2018-04-20] MEDS: Iron Sucrose Complex 200 MG in 0.9 % Sodium Chloride 100 ML IVPB SCH (10:07)
[2018-04-20] MEDS: Hydrocortisone Acetate 25 MG RECTAL SUPPOSITORY RC SCH (10:08)
--- NOTE | 2018-04-20 11:01 | Internal Med Progress Note ---
<El Land - Last Filed: 04/20/18 16:04> Hospitalist Progress Note - Encounter Date of Encounter: 04/20/18 Time of Encounter: 10:00 - Subjective Interval History: Patient on Oxymask 8L. Mental status unchanged but stable. Denies SOB, CP, palpitations. Tolerating PO intake. No acute complaints. No overnight events. - Exam Vitals: Temp Pulse Resp BP Pulse Ox 97.8 F 93 16 117/72 96 04/20/18 07:12 04/20/18 07:12 04/20/18 07:12 04/20/18 07:12 04/20/18 07:12 Exam: General: AO x 3, but cannot recall why she is at hospital. Skin: Pale, no rash, no lesions. H: Normocephalic. EENT: EOMI, pupils equal and reactive. Mucus membranes dry. Cardiovascular: Normal S1 & S2. No JVD. Pulse regular. Systolic murmur heard. Lungs: Moving better air today. Some rhonchi especially on L. Abdomen: Soft, non-tender, no rigidity. Normal bowel sounds. Extremities: No deformity, no edema or tenderness Neurological: Moves all extremities. Pulses: Carotid and radial pulses normal +2. Rest of the physical exam is non contributory - Assessment and Plan (1) Anemia Current Visit: Yes Status: Acute Assessment and Plan: Improved. Hgb uptrending s/p 2 units RBCs over the weekend and stable. Will discontinue Iron infusion. Continue with Ferrous sulfate. Palliative meeting yesterday. Family does not wish for hospice care and would rather have ECF after discharge. Pending placement. (2) Acute and chronic respiratory failure with hypoxia Current Visit: Yes Status: Acute Assessment and Plan: On Oxymask 8L CXR with increased R pleural effusion with small L pleural effusion as well as pulmonary edema yesterday. Continue Levaquin Day #3 for pneumonia Pt anemic as well. (3) Diastolic CHF Current Visit: Yes Status: Chronic Assessment and Plan: (4) Mucus plugging of bronchi Current Visit: Yes Status: Acute Assessment and Plan: Appears to have improved. (5) Pneumonia Current Visit: No Status: Suspected Assessment and Plan: Continue with Levaquin Day #2. Culture sensitive to Levaquin. (6) COPD (chronic obstructive pulmonary disease) Current Visit: Yes Status: Chronic Assessment and Plan: Chronic issue. Continue aerosols and oxygen. No wheezing at this time. (7) Chronic respiratory failure with hypoxia Current Visit: Yes Status: Chronic Assessment and Plan: Chronically on 5 liters NC at home. 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 (9) Anxiety and depression Current Visit: Yes Status: Chronic Assessment and Plan: Currently is not an issue. (10) Decubitus ulcer of sacral region, stage 1 Current Visit: Yes Status: Acute Assessment and Plan: daily dressing change DVT Prophylaxis: Subcutaneous heparin. - Time Spent with Patient Total time spent is greater than 50% in coordination of care (as documented) at patient's floor/unit and/or counseling patient: Internal Medicine: Result - Labs CBC & Chem 7: 04/19/18 06:57 04/19/18 06:57 - ABG Interpretation ABG results: ABG ABG pH 7.44 pH Units (7.32-7.45) 04/13/18 11:16 ABG pCO2 44 mmHg (35-45) 04/13/18 11:16 ABG pO2 53 mmHg (85-104) L 04/13/18 11:16 ABG O2 Saturation 88 % (95-98) L 04/13/18 11:16 PT/INR, D-dimer PT 12.9 Seconds (9.4-12.1) H 04/11/18 17:11 Consult Discharge Plan - Plan Referrals: Maria Eugenia English MD [Primary Care Provider] - <Jose Singer - Last Filed: 04/20/18 16:46> Hospitalist Progress Note - Encounter Date of Encounter: 04/20/18 - Exam Vitals: Temp Pulse Resp BP Pulse Ox 98.0 F 91 20 90/53 93 04/20/18 16:23 04/20/18 16:23 04/20/18 16:23 04/20/18 16:23 04/20/18 16:23 - Assessment and Plan (1) COPD (chronic obstructive pulmonary disease) Current Visit: Yes Status: Chronic (2) Anxiety and depression Current Visit: Yes Status: Chronic (3) Pneumonia Current Visit: No Status: Suspected (4) Diastolic CHF Current Visit: Yes Status: Chronic (5) Decubitus ulcer of sacral region, stage 1 Current Visit: Yes Status: Acute (6) Chronic respiratory failure with hypoxia Current Visit: Yes Status: Chronic (7) Hypertension with renal disease Current Visit: Yes Status: Chronic (8) Acute and chronic respiratory failure with hypoxia Current Visit: Yes Status: Acute (9) Mucus plugging of bronchi Current Visit: Yes Status: Acute (10) Anemia Current Visit: Yes Status: Chronic - Time Spent with Patient Total time spent is greater than 50% in coordination of care (as documented) at patient's floor/unit and/or counseling patient: Internal Medicine: Result - Labs CBC & Chem 7: 04/19/18 06:57 04/19/18 06:57 - ABG Interpretation ABG results: ABG ABG pH 7.44 pH Units (7.32-7.45) 04/13/18 11:16 ABG pCO2 44 mmHg (35-45) 04/13/18 11:16 ABG pO2 53 mmHg (85-104) L 04/13/18 11:16 ABG O2 Saturation 88 % (95-98) L 04/13/18 11:16 PT/INR, D-dimer PT 12.9 Seconds (9.4-12.1) H 04/11/18 17:11 - Attending Attestation I performed an independent interview and exam of this patient. I agree with the findings, assessment, and plan of , internal medicine resident. Patient currently remains comfortable. Hemoglobin remains stable. He continues to have a cough but is improving. She is currently taking Levaquin for pneumonia. We will continue to closely monitor. I discussed the case with the patient and son at bedside.. Palliative care input is appreciated. Exam: Gen.: No acute distress, forgetful Lungs show crackles bilaterally Heart regular rate and rhythm Abdomen soft nontender Ext no significant edema <El Land - Last Filed: 04/20/18 16:04> (1) Anemia Qualifiers: Anemia type: other cause Other causes of anemia: acute posthemorrhagic Qualified Code(s): D62 - Acute posthemorrhagic anemia <Jose Singer - Last Filed: 04/20/18 16:46> (1) COPD (chronic obstructive pulmonary disease) Qualifiers: COPD type: emphysema Emphysema type: panlobular Qualified Code(s): J43.1 - Panlobular emphysema (3) Pneumonia Qualifiers: Pneumonia type: due to methicillin-sensitive Staphylococcus aureus (MSSA) Laterality: right Lung location: lower lobe of lung Qualified Code(s): J15.211 - Pneumonia due to Methicillin susceptible Staphylococcus aureus (4) Diastolic CHF Qualifiers: Heart failure chronicity: acute on chronic Qualified Code(s): I50.33 - Acute on chronic diastolic (congestive) heart failure (10) Anemia Qualifiers: Anemia type: other cause Other causes of anemia: chronic disease, other Qualified Code(s): D63.8 - Anemia in other chronic diseases classified elsewhere
[2018-04-20] MEDS: levoFLOXacin 750 MG TABLET PO SCH (12:57)
[2018-04-20] MEDS: *HR* OxyCODONE Immed Rel 5 MG TABLET PO PRN (13:23)
[2018-04-21] MEDS: Albuterol 2.5 MG/3 ML NEBULIZER IH SCH ×4 (04:10→21:46)
[2018-04-21] MEDS: Acetylcysteine 10% 2 ML INHSOL IH SCH ×4 (04:10→21:46)
[2018-04-21 10:01] LABS: Hematocrit 31.7 % (35.3-44.9); Hemoglobin 9.9 g/dL (11.5-15.4); Mean Corpuscular HGB Conc 31.2 g/dL (31.6-35.5); Mean Corpuscular Hemoglobin 30.7 pg (28.0-33.3); Mean Corpuscular Volume 98.1 fL (83.0-100.0); Mean Platelet Volume 11.4 fL (9.4-12.4); Platelet Count 141 K/mcL (140-400); Red Blood Count 3.23 M/mcL (3.82-4.97); Red Cell Distribution Width 17.7 % (11.5-14.5)
[2018-04-21] MEDS: Iron Sucrose Complex 200 MG in 0.9 % Sodium Chloride 100 ML IVPB SCH (10:28)
[2018-04-21] MEDS: Acetaminophen 325 MG TABLET PO PRN (10:34)
--- NOTE | 2018-04-21 11:25 | Internal Med Progress Note ---
Hospitalist Progress Note - Encounter Date of Encounter: 04/21/18 Time of Encounter: 10:00 - Subjective Interval History: No significant changes overnight. Still requiring high flow oxygen. She states she does not feel much better. Has a constant urge to have a bowel movement. Breathing is unchanged. No chest pain. She is not complaining of shortness of breath at this time but she is tachypneic with any activity. No fevers or chills. Review of systems: Other lab mentioned above a 10 point review of systems is negative. Patient does have some mild confusion, therefore review of systems is not entirely reliable. - Exam Vitals: Temp Pulse Resp BP Pulse Ox 98.0 F 98 18 89/48 90 04/21/18 11:06 04/21/18 11:06 04/21/18 11:06 04/21/18 11:06 04/21/18 11:06 Exam: General: AO x 3, but cannot recall why she is at hospital. Skin: Pale, no rash, no lesions. H: Normocephalic. EENT: EOMI, pupils equal and reactive. Mucus membranes dry. Cardiovascular: Normal S1 & S2. No JVD. Pulse regular. Systolic murmur heard. Lungs: Moving better air today. Dimin bs bases Abdomen: Soft, non-tender, no rigidity. Normal bowel sounds. Extremities: No deformity, no edema or tenderness Neurological: Moves all extremities. Pulses: Carotid and radial pulses normal +2. Rest of the physical exam is non contributory - Assessment and Plan (1) COPD (chronic obstructive pulmonary disease) Current Visit: Yes Status: Chronic Assessment and Plan: Chronic issue. Continue aerosols and oxygen. No wheezing at this time. (2) Anxiety and depression Current Visit: Yes Status: Chronic Assessment and Plan: Currently is not an issue. (3) Pneumonia Current Visit: No Status: Suspected Assessment and Plan: Currently on IV abx. Will switch today. Day #11 Abx, currently renal dose Levaquin. Anticipate stopping antibiotics in the next few days. No obvious new pneumonia, but does have a history of mucous plugging. (4) Diastolic CHF Current Visit: Yes Status: Chronic Assessment and Plan: CXR shows evidence of pulmonary edema. Will receive more Lasix today with blood transfusion. 04/21: Lasix is held. She does appear to be clinically compensated. Monitor closely (5) Decubitus ulcer of sacral region, stage 1 Current Visit: Yes Status: Acute Assessment and Plan: daily dressing change (6) Chronic respiratory failure with hypoxia Current Visit: Yes Status: Chronic Assessment and Plan: Chronically on 5 liters NC at home. 04/21: Patient now with acute on chronic hypoxemic respiratory failure Attempt to wean down to her baseline level of oxygen as tolerated. Aim for an oxygen saturation of 88%. (7) Hypertension with renal disease Current Visit: Yes Status: Chronic Assessment and Plan: Blood pressure controlled. 04/21: Blood pressure controlled on his side this morning. May need to adjust medications. Monitor. (8) Acute and chronic respiratory failure with hypoxia Current Visit: Yes Status: Acute (9) Mucus plugging of bronchi Current Visit: Yes Status: Acute Assessment and Plan: Appears to have improved. (10) Anemia Current Visit: Yes Status: Chronic Assessment and Plan: Hemoglobin now below 7. No overt signs of bleeding. Will transfuse 2 units today with Lasix between and after. IV iron for 3 days as well. 04/21: Stable, monitored DVT Prophylaxis: Subcutaneous heparin. - Time Spent with Patient Total time spent is greater than 50% in coordination of care (as documented) at patient's floor/unit and/or counseling patient: 25 - 35 minutes Plan of Care Discussed with: patient Internal Medicine: Result - Labs CBC & Chem 7: 04/21/18 09:50 04/19/18 06:57 Labs: Short CBC 04/21/18 Range/Units 09:50 WBC 11.7 H (4.3-11.1) K/mcL Hgb 9.9 L (11.5-15.4) g/dL Hct 31.7 L (35.3-44.9) % Plt Count 141 (140-400) K/mcL - ABG Interpretation ABG results: ABG ABG pH 7.44 pH Units (7.32-7.45) 04/13/18 11:16 ABG pCO2 44 mmHg (35-45) 04/13/18 11:16 ABG pO2 53 mmHg (85-104) L 04/13/18 11:16 ABG O2 Saturation 88 % (95-98) L 04/13/18 11:16 PT/INR, D-dimer PT 12.9 Seconds (9.4-12.1) H 04/11/18 17:11 Consult Discharge Plan - Plan Referrals: Maria Eugenia English MD [Primary Care Provider] - (1) COPD (chronic obstructive pulmonary disease) Qualifiers: COPD type: emphysema Emphysema type: panlobular Qualified Code(s): J43.1 - Panlobular emphysema (3) Pneumonia Qualifiers: Pneumonia type: due to methicillin-sensitive Staphylococcus aureus (MSSA) Laterality: right Lung location: lower lobe of lung Qualified Code(s): J15.211 - Pneumonia due to Methicillin susceptible Staphylococcus aureus (4) Diastolic CHF Qualifiers: Heart failure chronicity: acute on chronic Qualified Code(s): I50.33 - Acute on chronic diastolic (congestive) heart failure (10) Anemia Qualifiers: Anemia type: other cause Other causes of anemia: chronic disease, other Qualified Code(s): D63.8 - Anemia in other chronic diseases classified elsewhere
--- NOTE | 2018-04-21 15:58 | Event Note ---
Date of Encounter: 04/21/18 Time of Encounter: 10:30 Visited pt briefly this am and reviewed record. She denies discomfort at this time, and states that hemmorhoid pain is better, although she still feels frequent urge that bowels have to move. Encouraged her to allow nurses to administer anusol. No family is at bedside. Goals of care have been established and she will return to ECF under skilled level of care per family request. Code status remains DNR/DNI. Palliative will sign off. Please reconsult if needed.
[2018-04-21] MEDS: *HR* OxyCODONE Immed Rel 5 MG TABLET PO PRN (19:53)
[2018-04-22] MEDS: Hydrocortisone Acetate 25 MG RECTAL SUPPOSITORY RC SCH ×5 (03:52→23:14)
[2018-04-22 03:56] LABS: Potassium 4.3 mEq/L (3.5-5.1)
[2018-04-22] MEDS: Albuterol 2.5 MG/3 ML NEBULIZER IH SCH ×4 (04:33→21:43)
[2018-04-22] MEDS: Acetylcysteine 10% 2 ML INHSOL IH SCH ×4 (04:33→21:43)
[2018-04-22] MEDS: levoFLOXacin 750 MG TABLET PO SCH (09:21)
--- NOTE | 2018-04-22 09:44 | Internal Med Progress Note ---
<El Land - Last Filed: 04/22/18 10:39> Hospitalist Progress Note - Encounter Date of Encounter: 04/22/18 Time of Encounter: 09:30 - Subjective Interval History: Patient on Oxymask 9L. Mental status unchanged but stable. Denies SOB, CP, palpitations. Tolerating PO intake but continues to have low appetite. No acute complaints. No overnight events. Unsure in regards to ECF status. Smear BM today. +Flatus. - Exam Vitals: Temp Pulse Resp BP Pulse Ox 98.0 F 87 24 126/76 92 04/22/18 07:25 04/22/18 07:25 04/22/18 07:25 04/22/18 07:25 04/22/18 07:25 Exam: General: AO x 3, but cannot recall why she is at hospital. Skin: Pale, no rash, no lesions. H: Normocephalic. EENT: EOMI, pupils equal and reactive. Mucus membranes dry. Cardiovascular: Normal S1 & S2. No JVD. Pulse regular. Systolic murmur heard. Lungs: Moving better air today. Dimin bs bases Abdomen: Soft, non-tender, no rigidity. Normal bowel sounds. Extremities: No deformity, no edema or tenderness Neurological: Moves all extremities. Pulses: Carotid and radial pulses normal +2. Rest of the physical exam is non contributory - Assessment and Plan (1) Anemia Current Visit: Yes Status: Acute Assessment and Plan: Stable Hbg. No signs of bleeds. Pending ECF transfer. (2) Pneumonia Current Visit: No Status: Suspected Assessment and Plan: Continue renal dose Levaquin. Anticipate stopping antibiotics in the next few days. No obvious new pneumonia, but does have a history of mucous plugging. (3) Diastolic CHF Current Visit: Yes Status: Chronic Assessment and Plan: Stable. CXR shows evidence of pulmonary edema. (4) Decubitus ulcer of sacral region, stage 1 Current Visit: Yes Status: Acute Assessment and Plan: daily dressing change (5) Chronic respiratory failure with hypoxia Current Visit: Yes Status: Chronic Assessment and Plan: Chronically on 5 liters NC at home. Currently on 9L. VSS. Attempt to wean down to her baseline level of oxygen as tolerated. Aim for an oxygen saturation of 88%. (7) Hypertension with renal disease Current Visit: Yes Status: Chronic Assessment and Plan: Blood pressure controlled. 04/21: Blood pressure controlled on his side this morning. May need to adjust medications. Monitor. (8) Acute and chronic respiratory failure with hypoxia Current Visit: Yes Status: Acute Continue O2 as needed. Will attempt to wean back to baseline. (9) Mucus plugging of bronchi Current Visit: Yes Status: Acute Assessment and Plan: DVT Prophylaxis: Subcutaneous heparin. - Time Spent with Patient Total time spent is greater than 50% in coordination of care (as documented) at patient's floor/unit and/or counseling patient: Greater than 35 minutes Internal Medicine: Result - Labs CBC & Chem 7: 04/21/18 09:50 04/22/18 02:45 Labs: Short CBC 04/21/18 Range/Units 09:50 WBC 11.7 H (4.3-11.1) K/mcL Hgb 9.9 L (11.5-15.4) g/dL Hct 31.7 L (35.3-44.9) % Plt Count 141 (140-400) K/mcL BMP 04/22/18 02:45 Sodium 141 Potassium 4.3 Chloride 101 Carbon Dioxide 32 H BUN 22 Creatinine 1.05 Glucose 100 Calcium 9.0 - ABG Interpretation ABG results: ABG ABG pH 7.44 pH Units (7.32-7.45) 04/13/18 11:16 ABG pCO2 44 mmHg (35-45) 04/13/18 11:16 ABG pO2 53 mmHg (85-104) L 04/13/18 11:16 ABG O2 Saturation 88 % (95-98) L 04/13/18 11:16 PT/INR, D-dimer PT 12.9 Seconds (9.4-12.1) H 04/11/18 17:11 Consult Discharge Plan - Plan Referrals: Maria Eugenia English MD [Primary Care Provider] - <Jose Singer - Last Filed: 04/22/18 14:38> Hospitalist Progress Note - Encounter Date of Encounter: 04/22/18 - Exam Vitals: Temp Pulse Resp BP Pulse Ox 98.3 F 83 18 124/78 92 04/22/18 11:47 04/22/18 11:47 04/22/18 11:47 04/22/18 11:47 04/22/18 11:47 - Assessment and Plan (1) COPD (chronic obstructive pulmonary disease) Current Visit: Yes Status: Chronic (2) Anxiety and depression Current Visit: Yes Status: Chronic (3) Pneumonia Current Visit: No Status: Suspected (4) Diastolic CHF Current Visit: Yes Status: Chronic (5) Decubitus ulcer of sacral region, stage 1 Current Visit: Yes Status: Acute (6) Chronic respiratory failure with hypoxia Current Visit: Yes Status: Chronic (7) Hypertension with renal disease Current Visit: Yes Status: Chronic (8) Acute and chronic respiratory failure with hypoxia Current Visit: Yes Status: Acute (9) Mucus plugging of bronchi Current Visit: Yes Status: Acute (10) Anemia Current Visit: Yes Status: Chronic - Time Spent with Patient Total time spent is greater than 50% in coordination of care (as documented) at patient's floor/unit and/or counseling patient: Internal Medicine: Result - Labs CBC & Chem 7: 04/21/18 09:50 04/22/18 02:45 Labs: BMP 04/22/18 02:45 Sodium 141 Potassium 4.3 Chloride 101 Carbon Dioxide 32 H BUN 22 Creatinine 1.05 Glucose 100 Calcium 9.0 - ABG Interpretation ABG results: ABG ABG pH 7.44 pH Units (7.32-7.45) 04/13/18 11:16 ABG pCO2 44 mmHg (35-45) 04/13/18 11:16 ABG pO2 53 mmHg (85-104) L 04/13/18 11:16 ABG O2 Saturation 88 % (95-98) L 04/13/18 11:16 PT/INR, D-dimer PT 12.9 Seconds (9.4-12.1) H 04/11/18 17:11 - Attending Attestation I peformed and independent interview and exam of this pt. I agree with the findings, assessment and plan of Dr. Land, [facility] practice resident. Patient has improved. She appears compensated from a CHF standpoint. She continues on treatment for pneumonia. She appears back to her baseline. She is comfortable. We will work toward placement. Gen: NAD, mild confusion Lung - CTAB Ht RRR Abd soft +bs, nt Ext-tr edema Neuro - no gross focal deficits <El Land - Last Filed: 04/22/18 10:39> (1) Anemia Qualifiers: Anemia type: other cause Other causes of anemia: acute posthemorrhagic Qualified Code(s): D62 - Acute posthemorrhagic anemia <Jose Singer - Last Filed: 04/22/18 14:38> (1) COPD (chronic obstructive pulmonary disease) Qualifiers: COPD type: emphysema Emphysema type: panlobular Qualified Code(s): J43.1 - Panlobular emphysema (3) Pneumonia Qualifiers: Pneumonia type: due to methicillin-sensitive Staphylococcus aureus (MSSA) Laterality: right Lung location: lower lobe of lung Qualified Code(s): J15.211 - Pneumonia due to Methicillin susceptible Staphylococcus aureus (4) Diastolic CHF Qualifiers: Heart failure chronicity: acute on chronic Qualified Code(s): I50.33 - Acute on chronic diastolic (congestive) heart failure (10) Anemia Qualifiers: Anemia type: other cause Other causes of anemia: chronic disease, other Qualified Code(s): D63.8 - Anemia in other chronic diseases classified elsewhere
[2018-04-22] MEDS: *HR* OxyCODONE Immed Rel 5 MG TABLET PO PRN (17:03)
[2018-04-22] MEDS ORDERED: ALPRAZolam 0.25 MG TABLET PO PRN (17:20)
[2018-04-22] MEDS ORDERED: Ondansetron 4 MG/2 ML VIAL IVP PRN (17:57)
[2018-04-22] MEDS: Ondansetron 4 MG/2 ML VIAL IVP PRN (18:04)
[2018-04-22] MEDS: Aspirin 81 MG TAB.CHEW PO SCH ×2 (23:14→23:21)
[2018-04-23] MEDS: Acetylcysteine 10% 2 ML INHSOL IH SCH ×4 (04:25→22:31)
[2018-04-23] MEDS: Albuterol 2.5 MG/3 ML NEBULIZER IH SCH ×4 (04:25→22:30)
--- NOTE | 2018-04-23 10:00 | Internal Med Progress Note ---
<El Land - Last Filed: 04/23/18 13:49> Hospitalist Progress Note - Encounter Date of Encounter: 04/23/18 Time of Encounter: 09:45 - Subjective Interval History: Patient on [place] 9L. Mental status unchanged but stable. Denies SOB, CP, palpitations. Tolerating PO intake but continues to have low appetite. No acute complaints. No overnight events. Unsure in regards to ECF status. Smear BM today. +Flatus. - Exam Vitals: Temp Pulse Resp BP Pulse Ox 98.3 F 94 24 110/66 91 04/23/18 07:13 04/23/18 07:13 04/23/18 07:13 04/23/18 07:13 04/23/18 07:13 Exam: General: Chronically ill appearing. Skin: Pale, no rash, no lesions. H: Normocephalic. Cardiovascular: Normal S1 & S2. No JVD. Pulse regular. Systolic murmur heard. Lungs: Diminished lung sounds. Bilateral wheezing. Abdomen: Soft, non-tender, no rigidity. Normal bowel sounds. Extremities: No deformity, no edema or tenderness Neurological: Moves all extremities. Pulses: Carotid and radial pulses normal +2. Psych: Alert and oriented to person only. Rest of the physical exam is non contributory - Assessment and Plan (1) Anemia Current Visit: Yes Status: Acute Assessment and Plan: Anemia of chronic disease. Stable Hbg. No signs of bleeds. Pending ECF transfer to [place] Patient is DNR-CCA-DNI (2) Pneumonia Current Visit: No Status: Suspected Assessment and Plan: CXR with mild pulmonary edema and moderate right-sided pleural effusion but stable. Satting well on 9L NC Continue renal dose Levaquin. Will d/c today. (3) Diastolic CHF Current Visit: Yes Status: Chronic Assessment and Plan: Stable. CXR shows evidence of pulmonary edema. (4) Decubitus ulcer of sacral region, stage 1 Current Visit: Yes Status: Acute Assessment and Plan: daily dressing change (5) Chronic respiratory failure with hypoxia Current Visit: Yes Status: Chronic Assessment and Plan: Chronically on 5 liters NC at home. Currently on 9L. VSS. Attempt to wean down to her baseline level of oxygen as tolerated. Aim for an oxygen saturation of 88%. (7) Hypertension with renal disease Current Visit: Yes Status: Chronic Assessment and Plan: Blood pressure controlled. 04/21: Blood pressure controlled on his side this morning. May need to adjust medications. Monitor. (8) Acute and chronic respiratory failure with hypoxia Current Visit: Yes Status: Acute Continue O2 as needed. Currently satting well on 8L. Will attempt to wean back to baseline. (9) Mucus plugging of bronchi Current Visit: Yes Status: Acute Assessment and Plan: (10) Constipation Current Visit: Yes Status: Acute Assessment and Plan: Continue with Anusol DVT Prophylaxis: Subcutaneous heparin. - Time Spent with Patient Total time spent is greater than 50% in coordination of care (as documented) at patient's floor/unit and/or counseling patient: Greater than 35 minutes Plan of Care Discussed with: patient Internal Medicine: Result - Labs CBC & Chem 7: 04/23/18 10:46 04/23/18 10:46 Labs: Cardiac Enzymes 04/22/18 Range/Units 17:37 Troponin I < 0.03 (< 0.04) ng/mL - ABG Interpretation ABG results: ABG ABG pH 7.44 pH Units (7.32-7.45) 04/13/18 11:16 ABG pCO2 44 mmHg (35-45) 04/13/18 11:16 ABG pO2 53 mmHg (85-104) L 04/13/18 11:16 ABG O2 Saturation 88 % (95-98) L 04/13/18 11:16 PT/INR, D-dimer PT 12.9 Seconds (9.4-12.1) H 04/11/18 17:11 - Impressions Impressions Chest X-Ray 04/22/18 17:21 IMPRESSION: 1. Redemonstration of mild pulmonary edema and moderate right-sided pleural effusion with associated atelectasis which overall appears similar to previous exam. 2. Mild left basilar atelectasis. D/ / Leonard Yepez MD / Leonard Yepez MD Interpreting Provider: Leonard Yepez MD Consult Discharge Plan - Plan Referrals: Maria Eugenia English MD [Primary Care Provider] - <Jose Singer - Last Filed: 04/23/18 14:04> Hospitalist Progress Note - Encounter Date of Encounter: 04/23/18 - Exam Vitals: Temp Pulse Resp BP Pulse Ox 98.2 F 95 24 138/81 90 04/23/18 11:23 04/23/18 11:23 04/23/18 11:23 04/23/18 11:23 04/23/18 11:23 - Assessment and Plan (1) COPD (chronic obstructive pulmonary disease) Current Visit: Yes Status: Chronic (2) Anxiety and depression Current Visit: Yes Status: Chronic (3) Pneumonia Current Visit: No Status: Suspected (4) Diastolic CHF Current Visit: Yes Status: Chronic (5) Decubitus ulcer of sacral region, stage 1 Current Visit: Yes Status: Acute (6) Chronic respiratory failure with hypoxia Current Visit: Yes Status: Chronic (7) Hypertension with renal disease Current Visit: Yes Status: Chronic (8) Acute and chronic respiratory failure with hypoxia Current Visit: Yes Status: Acute (9) Mucus plugging of bronchi Current Visit: Yes Status: Acute (10) Anemia Current Visit: Yes Status: Chronic - Time Spent with Patient Total time spent is greater than 50% in coordination of care (as documented) at patient's floor/unit and/or counseling patient: Internal Medicine: Result - Labs CBC & Chem 7: 04/23/18 10:46 04/23/18 10:46 Labs: Short CBC 04/23/18 Range/Units 10:46 WBC 9.5 (4.3-11.1) K/mcL Hgb 9.5 L (11.5-15.4) g/dL Hct 31.6 L (35.3-44.9) % Plt Count 123 L (140-400) K/mcL Neutrophils # 6.3 (1.6-8.9) K/mcL BMP 04/23/18 10:46 Sodium 141 Potassium 4.5 Chloride 101 Carbon Dioxide 33 H BUN 21 Creatinine 1.06 Glucose 87 Calcium 8.7 Cardiac Enzymes 04/22/18 Range/Units 17:37 Troponin I < 0.03 (< 0.04) ng/mL - ABG Interpretation ABG results: ABG ABG pH 7.44 pH Units (7.32-7.45) 04/13/18 11:16 ABG pCO2 44 mmHg (35-45) 04/13/18 11:16 ABG pO2 53 mmHg (85-104) L 04/13/18 11:16 ABG O2 Saturation 88 % (95-98) L 04/13/18 11:16 PT/INR, D-dimer PT 12.9 Seconds (9.4-12.1) H 04/11/18 17:11 - Impressions Impressions Chest X-Ray 04/22/18 17:21 IMPRESSION: 1. Redemonstration of mild pulmonary edema and moderate right-sided pleural effusion with associated atelectasis which overall appears similar to previous exam. 2. Mild left basilar atelectasis. D/ / Leonard Yepez MD / Leonard Yepez MD Interpreting Provider: Leonard Yepez MD - Attending Attestation I performed an independent interview and exam of this pt. I agree with the findings, assessment and plan of Dr. Land, Family practice resident. Patient continues with marked hypoxemia but otherwise is comfortable. Neck is much more improved. I discussed this with the son. Patient will be transferred over the weekend. I believe she has been diuresed well. We have treated her pneumonia. Continue aggressive broncho-pulmonary measures. Gen: NAD, mild confusion NEck supple Lung dimin bs bases Ht RRR Abd soft +BS, NT Ext - tr edema Neuro non focal <El Land - Last Filed: 04/23/18 13:49> (1) Anemia Qualifiers: Anemia type: other cause Other causes of anemia: acute posthemorrhagic Qualified Code(s): D62 - Acute posthemorrhagic anemia <Jose Singer - Last Filed: 04/23/18 14:04> (1) COPD (chronic obstructive pulmonary disease) Qualifiers: COPD type: emphysema Emphysema type: panlobular Qualified Code(s): J43.1 - Panlobular emphysema (3) Pneumonia Qualifiers: Pneumonia type: due to methicillin-sensitive Staphylococcus aureus (MSSA) Laterality: right Lung location: lower lobe of lung Qualified Code(s): J15.211 - Pneumonia due to Methicillin susceptible Staphylococcus aureus (4) Diastolic CHF Qualifiers: Heart failure chronicity: acute on chronic Qualified Code(s): I50.33 - Acute on chronic diastolic (congestive) heart failure (10) Anemia Qualifiers: Anemia type: other cause Other causes of anemia: chronic disease, other Qualified Code(s): D63.8 - Anemia in other chronic diseases classified elsewhere
[2018-04-23] MEDS: Aspirin 81 MG TAB.CHEW PO SCH (10:43)
[2018-04-23] MEDS: Hydrocortisone Acetate 25 MG RECTAL SUPPOSITORY RC SCH ×2 (10:44→20:42)
[2018-04-23 10:59] LABS: Hematocrit 31.6 % (35.3-44.9); Hemoglobin 9.5 g/dL (11.5-15.4); Mean Corpuscular HGB Conc 30.1 g/dL (31.6-35.5); Mean Corpuscular Volume 99.7 fL (83.0-100.0); Mean Platelet Volume 11.8 fL (9.4-12.4); Platelet Count 123 K/mcL (140-400); Red Blood Count 3.17 M/mcL (3.82-4.97); Red Cell Distribution Width 17.6 % (11.5-14.5)
[2018-04-23 11:13] LABS: Calcium 8.7 mg/dL (8.6-10.3); Potassium 4.5 mEq/L (3.5-5.1)
[2018-04-23 11:51] LABS: Eosinophils # 0.6 K/mcL (0.0-0.6); Lymphocytes # 1.5 K/mcL (0.6-4.6); Monocytes # 1.1 K/mcL (0.0-1.3); Neutrophils # 6.3 K/mcL (1.6-8.9); Platelet Estimate Slight Decrease (Normal)
[2018-04-24] MEDS: Albuterol 2.5 MG/3 ML NEBULIZER IH SCH ×4 (04:08→21:27)
[2018-04-24] MEDS: Acetylcysteine 10% 2 ML INHSOL IH SCH ×4 (04:08→21:27)
--- NOTE | 2018-04-24 10:40 | Internal Med Progress Note ---
Hospitalist Progress Note - Encounter Date of Encounter: 04/24/18 Time of Encounter: 10:00 - Subjective Interval History: No significant changes overnight. Still requiring high flow oxygen. She states she does not feel much better. Has a constant urge to have a bowel movement. Breathing is unchanged. No chest pain. She is not complaining of shortness of breath at this time but she is tachypneic with any activity. No fevers or chills. 04/24: Patient is stating that her breathing is worse today. Remains on high flow oxygen. Vitals otherwise stable. She denies any chest pain. No nausea or vomiting. No fevers or chills. She constantly complains of the feeling of urge to defecate. Review of systems: Other lab mentioned above a 10 point review of systems is negative. Patient does have some mild confusion, therefore review of systems is not entirely reliable. - Exam Vitals: Temp Pulse Resp BP Pulse Ox 98.1 F 77 18 122/63 93 04/24/18 06:45 04/24/18 06:45 04/24/18 06:45 04/24/18 06:45 04/24/18 06:45 Exam: General: Chronically ill appearing, anxious at times Skin: Pale, no rash, no lesions. H: Normocephalic. Cardiovascular: Normal S1 & S2. No JVD. Pulse regular. Systolic murmur heard. Lungs: Coarse bilateral lung bases one third up Abdomen: Soft, non-tender, no rigidity. Normal bowel sounds. Extremities: No deformity, no edema or tenderness Neurological: Moves all extremities. Pulses: Carotid and radial pulses normal +2. Psych: Alert and oriented to person only. Rest of the physical exam is non contributory - Assessment and Plan (1) Chronic respiratory failure with hypoxia Current Visit: Yes Status: Chronic Assessment and Plan: Chronically on 5 liters NC at home. 04/21: Patient now with acute on chronic hypoxemic respiratory failure Attempt to wean down to her baseline level of oxygen as tolerated. Aim for an oxygen saturation of 88%. 04/24: This is acute on chronic combined hypercarbic and hypoxemic respiratory failure. Multifactorial. Patient has COPD, she also has recent pneumonia which is not treated. Also has acute on chronic diastolic CHF for which we are treating. Additionally she has pulmonary hypertension, as well as I suspect some chronic hypoventilation. Finally she also has mucous plugging which we are treating. (2) Diastolic CHF Current Visit: Yes Status: Chronic Assessment and Plan: CXR shows evidence of pulmonary edema. Will receive more Lasix today with blood transfusion. 04/21: Lasix is held. She does appear to be clinically compensated. Monitor closely 04/24: This is acute on chronic diastolic CHF. A 6 was held but now she appears to be worse. I will restart IV Lasix and monitor renal function closely. Review of echo from February 2018 showed an EF of 60-65% with mild left ventricular diastolic dysfunction. She also was noted to have severe pulmonary hypertension with estimated RVSP 57-62 mmHg. Patient continues on beta hemalatha, Lopressor 12.5 mg by mouth twice a day. (3) COPD (chronic obstructive pulmonary disease) Current Visit: Yes Status: Chronic Assessment and Plan: Chronic issue. Continue aerosols and oxygen. No wheezing at this time. (4) Anxiety and depression Current Visit: Yes Status: Chronic Assessment and Plan: 04/24: Mild anxiety at times. Use Xanax low-dose when necessary as sided knee be contributing to her dyspnea (5) Pneumonia Current Visit: No Status: Suspected Assessment and Plan: Currently on IV abx. Will switch today. Day #11 Abx, currently renal dose Levaquin. Anticipate stopping antibiotics in the next few days. No obvious new pneumonia, but does have a history of mucous plugging. 04/24: Treated. Antibiotics stopped. (6) Decubitus ulcer of sacral region, stage 1 Current Visit: Yes Status: Acute Assessment and Plan: daily dressing change (7) Hypertension with renal disease Current Visit: Yes Status: Chronic Assessment and Plan: Blood pressure controlled. 04/24: Blood pressure controlled (8) Acute and chronic respiratory failure with hypoxia Current Visit: Yes Status: Acute Assessment and Plan: Persists. CXR today shows increased R pleural effusion with small L pleural effusion as well as pulmonary edema. Pt anemic as well. Will transfuse and give Lasix. 04/24: See above (9) Mucus plugging of bronchi Current Visit: Yes Status: Acute Assessment and Plan: Appears to have improved. 04/24: Will add Mucinex in addition to acetylcysteine. (10) Anemia Current Visit: Yes Status: Chronic Assessment and Plan: Hemoglobin now below 7. No overt signs of bleeding. Will transfuse 2 units today with Lasix between and after. IV iron for 3 days as well. 04/24: Stable, monitor DVT Prophylaxis: subcutaneous Lovenox - Time Spent with Patient Total time spent is greater than 50% in coordination of care (as documented) at patient's floor/unit and/or counseling patient: 25 - 35 minutes Plan of Care Discussed with: patient Internal Medicine: Result - Labs CBC & Chem 7: 04/23/18 10:46 04/23/18 10:46 Labs: Short CBC 04/23/18 Range/Units 10:46 WBC 9.5 (4.3-11.1) K/mcL Hgb 9.5 L (11.5-15.4) g/dL Hct 31.6 L (35.3-44.9) % Plt Count 123 L (140-400) K/mcL Neutrophils # 6.3 (1.6-8.9) K/mcL BMP 04/23/18 10:46 Sodium 141 Potassium 4.5 Chloride 101 Carbon Dioxide 33 H BUN 21 Creatinine 1.06 Glucose 87 Calcium 8.7 - ABG Interpretation ABG results: ABG ABG pH 7.44 pH Units (7.32-7.45) 04/13/18 11:16 ABG pCO2 44 mmHg (35-45) 04/13/18 11:16 ABG pO2 53 mmHg (85-104) L 04/13/18 11:16 ABG O2 Saturation 88 % (95-98) L 04/13/18 11:16 PT/INR, D-dimer PT 12.9 Seconds (9.4-12.1) H 04/11/18 17:11 Consult Discharge Plan - Plan Referrals: Maria Eugenia English MD [Primary Care Provider] - (2) Diastolic CHF Qualifiers: Heart failure chronicity: acute on chronic Qualified Code(s): I50.33 - Acute on chronic diastolic (congestive) heart failure (3) COPD (chronic obstructive pulmonary disease) Qualifiers: COPD type: emphysema Emphysema type: panlobular Qualified Code(s): J43.1 - Panlobular emphysema (5) Pneumonia Qualifiers: Pneumonia type: due to methicillin-sensitive Staphylococcus aureus (MSSA) Laterality: right Lung location: lower lobe of lung Qualified Code(s): J15.211 - Pneumonia due to Methicillin susceptible Staphylococcus aureus (10) Anemia Qualifiers: Anemia type: other cause Other causes of anemia: chronic disease, other Qualified Code(s): D63.8 - Anemia in other chronic diseases classified elsewhere
[2018-04-24] MEDS: Hydrocortisone Acetate 25 MG RECTAL SUPPOSITORY RC SCH ×3 (11:08→21:21)
[2018-04-24] MEDS: Aspirin 81 MG TAB.CHEW PO SCH (11:08)
[2018-04-24] MEDS: Furosemide 40 MG/4 ML VIAL IVP SCH ×2 (11:08→21:02)
[2018-04-25] MEDS: Albuterol 2.5 MG/3 ML NEBULIZER IH SCH ×4 (03:53→21:24)
[2018-04-25] MEDS: Acetylcysteine 10% 2 ML INHSOL IH SCH ×4 (03:53→21:24)
[2018-04-25 06:36] LABS: Basophils % 0.4 %; Eosinophils # 0.1 K/mcL (0.0-0.6); Eosinophils % 1.4 %; Hematocrit 33.7 % (35.3-44.9); Hemoglobin 10.4 g/dL (11.5-15.4); Immature Granulocytes % 1.7 % (0-4); Lymphocytes # 1.4 K/mcL (0.6-4.6); Lymphocytes % 14.6 %; Mean Corpuscular HGB Conc 30.9 g/dL (31.6-35.5); Mean Corpuscular Hemoglobin 29.6 pg (28.0-33.3); Mean Platelet Volume 11.6 fL (9.4-12.4); Monocytes # 1.4 K/mcL (0.0-1.3); Monocytes % 14.2 %; Neutrophils # 6.6 K/mcL (1.6-8.9); Platelet Count 138 K/mcL (140-400); Red Blood Count 3.51 M/mcL (3.82-4.97); Red Cell Distribution Width 17.5 % (11.5-14.5); Segmented Neutrophils % 67.7 %
[2018-04-25 07:01] LABS: Calcium 8.9 mg/dL (8.6-10.3); Potassium 3.9 mEq/L (3.5-5.1)
[2018-04-25] MEDS: Furosemide 40 MG/4 ML VIAL IVP SCH ×3 (08:47→20:59)
[2018-04-25] MEDS: Aspirin 81 MG TAB.CHEW PO SCH (08:47)
[2018-04-25] MEDS: Hydrocortisone Acetate 25 MG RECTAL SUPPOSITORY RC SCH ×2 (08:49→20:59)
--- NOTE | 2018-04-25 09:39 | Internal Med Progress Note ---
Hospitalist Progress Note - Encounter Date of Encounter: 04/25/18 Time of Encounter: 09:00 - Subjective Interval History: No significant changes overnight. Still requiring high flow oxygen. She states she does not feel much better. Has a constant urge to have a bowel movement. Breathing is unchanged. No chest pain. She is not complaining of shortness of breath at this time but she is tachypneic with any activity. No fevers or chills. 04/24: Patient is stating that her breathing is worse today. Remains on high flow oxygen. Vitals otherwise stable. She denies any chest pain. No nausea or vomiting. No fevers or chills. She constantly complains of the feeling of urge to defecate. 04/25: Overnight patient's breathing has improved. She still remains on significant amount of oxygen, 9 L per nasal cannula. Vitals otherwise remained stable. Patient states she does not feel well, is short of breath but improved. She is constantly states urged to defecate. She has no nausea or vomiting. No fevers or chills. She reports feeling very weak. Discussion with her daughter yesterday, and they are now interested in hospice. Review of systems: Other lab mentioned above a 10 point review of systems is negative. Patient does have some mild confusion, therefore review of systems is not entirely reliable. - Exam Vitals: Temp Pulse Resp BP Pulse Ox 97.4 F L 90 18 97/54 93 04/25/18 06:51 04/25/18 06:51 04/25/18 06:51 04/25/18 06:51 04/25/18 06:51 Exam: General: Chronically ill appearing, anxious at times Skin: Pale, no rash, no lesions. H: Normocephalic. Cardiovascular: Normal S1 & S2. No JVD. Pulse regular. Systolic murmur heard. Lungs: Coarse bilateral lung bases one third up - improvement today Abdomen: Soft, non-tender, no rigidity. Normal bowel sounds. Extremities: No deformity, no edema or tenderness Neurological: Moves all extremities. Pulses: Carotid and radial pulses normal +2. Psych: Alert and oriented to person only. - Assessment and Plan (1) Chronic respiratory failure with hypoxia Current Visit: Yes Status: Chronic Assessment and Plan: Chronically on 5 liters NC at home. 04/21: Patient now with acute on chronic hypoxemic respiratory failure Attempt to wean down to her baseline level of oxygen as tolerated. Aim for an oxygen saturation of 88%. 04/24: This is acute on chronic combined hypercarbic and hypoxemic respiratory failure. Multifactorial. Patient has COPD, she also has recent pneumonia which is not treated. Also has acute on chronic diastolic CHF for which we are treating. Additionally she has pulmonary hypertension, as well as I suspect some chronic hypoventilation. Finally she also has mucous plugging which we are treating. 04/25: Symptomatically improved with restarting Lasix. We will continue to monitor renal function closely. Hospice will be consulted as discussed above. (2) Diastolic CHF Current Visit: Yes Status: Chronic Assessment and Plan: CXR shows evidence of pulmonary edema. Will receive more Lasix today with blood transfusion. 04/21: Lasix is held. She does appear to be clinically compensated. Monitor closely 04/24: This is acute on chronic diastolic CHF. A 6 was held but now she appears to be worse. I will restart IV Lasix and monitor renal function closely. Review of echo from February 2018 showed an EF of 60-65% with mild left ventricular diastolic dysfunction. She also was noted to have severe pulmonary hypertension with estimated RVSP 57-62 mmHg. Patient continues on beta hemalatha, Lopressor 12.5 mg by mouth twice a day. 04/25: As above, Lasix was resumed. Monitor. (3) COPD (chronic obstructive pulmonary disease) Current Visit: Yes Status: Chronic Assessment and Plan: Chronic issue. Continue aerosols and oxygen. No wheezing at this time. 04/25: Continue with aggressive bronchodilator therapy. I do not suspect she is having an acute exacerbation. (4) Anxiety and depression Current Visit: Yes Status: Chronic Assessment and Plan: 04/24: Mild anxiety at times. Use Xanax low-dose when necessary as sided knee be contributing to her dyspnea (5) Pneumonia Current Visit: No Status: Suspected Assessment and Plan: Currently on IV abx. Will switch today. Day #11 Abx, currently renal dose Levaquin. Anticipate stopping antibiotics in the next few days. No obvious new pneumonia, but does have a history of mucous plugging. 04/24: Treated. Antibiotics stopped. (6) Decubitus ulcer of sacral region, stage 1 Current Visit: Yes Status: Acute Assessment and Plan: daily dressing change (7) Hypertension with renal disease Current Visit: Yes Status: Chronic Assessment and Plan: Blood pressure controlled. 04/24: Blood pressure controlled (8) Acute and chronic respiratory failure with hypoxia Current Visit: Yes Status: Acute Assessment and Plan: Persists. CXR today shows increased R pleural effusion with small L pleural effusion as well as pulmonary edema. Pt anemic as well. Will transfuse and give Lasix. 04/25: See above (9) Mucus plugging of bronchi Current Visit: Yes Status: Acute Assessment and Plan: Appears to have improved. 04/24: Will add Mucinex in addition to acetylcysteine. 04/25: Continue current therapy (10) Anemia Current Visit: Yes Status: Chronic Assessment and Plan: Hemoglobin now below 7. No overt signs of bleeding. Will transfuse 2 units today with Lasix between and after. IV iron for 3 days as well. 04/25: Stable, monitor DVT Prophylaxis: SCD Recent hematoma, no pharmacologic prophylaxis - Time Spent with Patient Total time spent is greater than 50% in coordination of care (as documented) at patient's floor/unit and/or counseling patient: 25 - 35 minutes Internal Medicine: Result - Labs CBC & Chem 7: 04/25/18 06:22 04/25/18 06:22 Labs: Short CBC 04/25/18 Range/Units 06:22 WBC 9.8 (4.3-11.1) K/mcL Hgb 10.4 L (11.5-15.4) g/dL Hct 33.7 L (35.3-44.9) % Plt Count 138 L (140-400) K/mcL Neutrophils # 6.6 (1.6-8.9) K/mcL BMP 04/25/18 06:22 Sodium 141 Potassium 3.9 Chloride 96 L Carbon Dioxide 37 H BUN 20 Creatinine 1.07 Glucose 87 Calcium 8.9 - ABG Interpretation ABG results: ABG ABG pH 7.44 pH Units (7.32-7.45) 04/13/18 11:16 ABG pCO2 44 mmHg (35-45) 04/13/18 11:16 ABG pO2 53 mmHg (85-104) L 04/13/18 11:16 ABG O2 Saturation 88 % (95-98) L 04/13/18 11:16 PT/INR, D-dimer PT 12.9 Seconds (9.4-12.1) H 04/11/18 17:11 Consult Discharge Plan - Plan Referrals: Maria Eugenia English MD [Primary Care Provider] - (2) Diastolic CHF Qualifiers: Heart failure chronicity: acute on chronic Qualified Code(s): I50.33 - Acute on chronic diastolic (congestive) heart failure (3) COPD (chronic obstructive pulmonary disease) Qualifiers: COPD type: emphysema Emphysema type: panlobular Qualified Code(s): J43.1 - Panlobular emphysema (5) Pneumonia Qualifiers: Pneumonia type: due to methicillin-sensitive Staphylococcus aureus (MSSA) Laterality: right Lung location: lower lobe of lung Qualified Code(s): J15.211 - Pneumonia due to Methicillin susceptible Staphylococcus aureus (10) Anemia Qualifiers: Anemia type: other cause Other causes of anemia: chronic disease, other Qualified Code(s): D63.8 - Anemia in other chronic diseases classified elsewhere
[2018-04-25] MEDS: Acetaminophen 325 MG TABLET PO PRN (17:37)
--- NOTE | 2018-04-25 21:41 | Electrocardiograph Report ---
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
[2018-04-26] MEDS: Albuterol 2.5 MG/3 ML NEBULIZER IH SCH ×4 (04:03→21:54)
[2018-04-26] MEDS: Acetylcysteine 10% 2 ML INHSOL IH SCH ×4 (04:03→21:53)
[2018-04-26] MEDS: Furosemide 40 MG/4 ML VIAL IVP SCH ×2 (07:34→20:58)
[2018-04-26] MEDS: Aspirin 81 MG TAB.CHEW PO SCH (07:36)
[2018-04-26] MEDS: Hydrocortisone Acetate 25 MG RECTAL SUPPOSITORY RC SCH ×2 (07:36→21:05)
--- NOTE | 2018-04-26 09:22 | Internal Med Progress Note ---
<Jose Singer - Last Filed: 04/26/18 13:04> Hospitalist Progress Note - Encounter Date of Encounter: 04/26/18 - Exam Vitals: Temp Pulse Resp BP Pulse Ox 97.5 F L 71 16 102/62 92 04/26/18 10:49 04/26/18 10:49 04/26/18 10:49 04/26/18 10:49 04/26/18 10:49 - Assessment and Plan (1) Chronic respiratory failure with hypoxia Current Visit: Yes Status: Chronic (2) Diastolic CHF Current Visit: Yes Status: Chronic (3) COPD (chronic obstructive pulmonary disease) Current Visit: Yes Status: Chronic (4) Anxiety and depression Current Visit: Yes Status: Chronic (5) Pneumonia Current Visit: No Status: Suspected (6) Decubitus ulcer of sacral region, stage 1 Current Visit: Yes Status: Acute (7) Hypertension with renal disease Current Visit: Yes Status: Chronic (8) Acute and chronic respiratory failure with hypoxia Current Visit: Yes Status: Acute (9) Mucus plugging of bronchi Current Visit: Yes Status: Acute (10) Anemia Current Visit: Yes Status: Chronic - Time Spent with Patient Total time spent is greater than 50% in coordination of care (as documented) at patient's floor/unit and/or counseling patient: Internal Medicine: Result - Labs CBC & Chem 7: 04/25/18 06:22 04/25/18 06:22 - ABG Interpretation ABG results: ABG ABG pH 7.44 pH Units (7.32-7.45) 04/13/18 11:16 ABG pCO2 44 mmHg (35-45) 04/13/18 11:16 ABG pO2 53 mmHg (85-104) L 04/13/18 11:16 ABG O2 Saturation 88 % (95-98) L 04/13/18 11:16 PT/INR, D-dimer PT 12.9 Seconds (9.4-12.1) H 04/11/18 17:11 Consult Discharge Plan - Plan Referrals: Maria Eugenia English MD [Primary Care Provider] - - Attending Attestation I performed an independent interview and examine this patient. I agree with the findings, assessment, and plan of Dr Land, family practice resident. This is a complicated patient with advanced COPD, acute on chronic diastolic CHF, acute on chronic hypoxemic respiratory failure. Patient has been treated for pneumonia. She continues on IV Lasix for volume overload, and will continue to do so as renal function allows. We have had numerous discussions with the family regarding goals of care and ultimately family did this weekend decided they wish to proceed with hospice/comfort care. Palliative care has been counseled to them and they are evaluating. She still requires high levels of oxygen. Anticipate transfer to hospice soon. Family is very supportive. Gen NAD, confused Neck supple Lung crackles bilat Ht rrr Abd soft +bs, nt Ext 1+ edema Neuro no gross focal def <El Land - Last Filed: 04/26/18 14:05> Hospitalist Progress Note - Encounter Date of Encounter: 04/26/18 Time of Encounter: 08:40 - Subjective Interval History: Patient on 7L NC. Mental status unchanged but stable. She continues to be confused. Denies CP, palpitations. Tolerating PO intake but continues to have low appetite. She continues to complain of weakness, SOB. Still complaints of difficulty with BMs. - Exam Vitals: Temp Pulse Resp BP Pulse Ox 97.6 F 88 16 103/70 90 04/26/18 06:41 04/26/18 06:41 04/26/18 06:41 04/26/18 06:41 04/26/18 09:05 Exam: General: Chronically ill appearing, anxious at times Skin: Pale, no rash, no lesions. H: Normocephalic. Cardiovascular: Normal S1 & S2. No JVD. Pulse regular. Systolic murmur heard. Lungs: Coarse bilateral lung bases one third up - improvement today Abdomen: Soft, non-tender, no rigidity. Normal bowel sounds. Extremities: No deformity, no edema or tenderness Neurological: Moves all extremities. Pulses: Carotid and radial pulses normal +2. Psych: Alert and oriented to person only. - Assessment and Plan (1) Anemia Current Visit: Yes Status: Acute (2) Acute and chronic respiratory failure Current Visit: No Status: Acute Assessment and Plan: Multifactorial. Patient with COPD and recent pneumonia. Also has acute on chronic diastolic CHF, pulmonary HTN, mucous plugging. Acute on chronic combined hypercarbic and hypoxemic respiratory failure.Chronically on 5 liters NC at home. Currently on 7L NC. Attempt to wean down to her baseline level of oxygen as tolerated. Aim for an oxygen saturation of 88%. Continue with Lasix and monitor renal function closely. Patient and family considering hospice again. Pending consult and recommendations appreciated. (2) Diastolic CHF Current Visit: Yes Status: Chronic Assessment and Plan: Acute on chronic diastolic CHF. Continue with IV lasix. Continue with BB, Monitor kidney function with AM labs. (3) COPD (chronic obstructive pulmonary disease) Current Visit: Yes Status: Chronic Assessment and Plan: Chronic issue. Continue bronchodilator therapy, aerosols and oxygen as needed. (4) Anxiety and depression Current Visit: Yes Status: Chronic Assessment and Plan: low dose xanax as needed. (5) Pneumonia Current Visit: No Status: Suspected Assessment and Plan: Antibiotics completed. (6) Decubitus ulcer of sacral region, stage 1 Current Visit: Yes Status: Acute Assessment and Plan: daily dressing change (7) Hypertension with renal disease Current Visit: Yes Status: Chronic Assessment and Plan: Blood pressure controlled. (8) Mucus plugging of bronchi Current Visit: Yes Status: Acute Assessment and Plan: Appears to have improved. Continue current therapy (9) Anemia Current Visit: Yes Status: Chronic Assessment and Plan: Stable DVT Prophylaxis: SCD Recent hematoma, no pharmacologic prophylaxis - Time Spent with Patient Total time spent is greater than 50% in coordination of care (as documented) at patient's floor/unit and/or counseling patient: Greater than 35 minutes Plan of Care Discussed with: patient Internal Medicine: Result - Labs CBC & Chem 7: 04/25/18 06:22 04/25/18 06:22 - ABG Interpretation ABG results: ABG ABG pH 7.44 pH Units (7.32-7.45) 04/13/18 11:16 ABG pCO2 44 mmHg (35-45) 04/13/18 11:16 ABG pO2 53 mmHg (85-104) L 04/13/18 11:16 ABG O2 Saturation 88 % (95-98) L 04/13/18 11:16 PT/INR, D-dimer PT 12.9 Seconds (9.4-12.1) H 04/11/18 17:11 <Jose Singer - Last Filed: 04/26/18 13:04> (2) Diastolic CHF Qualifiers: Heart failure chronicity: acute on chronic Qualified Code(s): I50.33 - Acute on chronic diastolic (congestive) heart failure (3) COPD (chronic obstructive pulmonary disease) Qualifiers: COPD type: emphysema Emphysema type: panlobular Qualified Code(s): J43.1 - Panlobular emphysema (5) Pneumonia Qualifiers: Pneumonia type: due to methicillin-sensitive Staphylococcus aureus (MSSA) Laterality: right Lung location: lower lobe of lung Qualified Code(s): J15.211 - Pneumonia due to Methicillin susceptible Staphylococcus aureus (10) Anemia Qualifiers: Anemia type: other cause Other causes of anemia: chronic disease, other Qualified Code(s): D63.8 - Anemia in other chronic diseases classified elsewhere <El Land - Last Filed: 04/26/18 14:05> (1) Anemia Qualifiers: Anemia type: other cause Other causes of anemia: acute posthemorrhagic Qualified Code(s): D62 - Acute posthemorrhagic anemia (2) Acute and chronic respiratory failure Qualifiers: Respiratory failure complication: hypoxia and hypercapnia Qualified Code(s): J96.21 - Acute and chronic respiratory failure with hypoxia; J96.22 - Acute and chronic respiratory failure with hypercapnia
[2018-04-26] MEDS ORDERED: Lactulose Oral Soln 20 GM/30 ML UDC PO ONE (14:48)
--- NOTE | 2018-04-26 14:55 | Palliative Progress Note ---
Date of Encounter: 04/26/18 Time of Encounter: 14:50 - Assessment and plan (1) Dyspnea Current Visit: No Status: Acute Assessment and plan: Continues with high flow oxygen - currently 7L. Last CXR unchanged. She is refusing the Acetylcysteine aerosols. Qualifiers: Dyspnea type: shortness of breath Qualified Code(s): R06.02 - Shortness of breath; R06.00 - Dyspnea, unspecified; R06.01 - Orthopnea (2) Anxiety and depression Current Visit: Yes Status: Chronic Assessment and plan: Continues Celexa and has Xanax PRN - utilized x1 last 24 hours. Resting and denies anxiety during my visit. (3) Constipation Current Visit: Yes Status: Acute Assessment and plan: No BM documented since 04/17. She has been on Miralax daily, will add dose Lactulose today. She has a great deal of pain with her hemorrhoids, so will try and avoid rectal administration if possible. Qualifiers: Constipation type: unspecified constipation type Qualified Code(s): K59.00 - Constipation, unspecified (4) Goals of care, counseling/discussion Current Visit: No Status: Acute Assessment and plan: Patient with no visitors at bedside. I was unable to reach son MORGAN Damon via phone - left voicemail. I did speak with daughter Tameka via telephone. Discussed overall clinical status and Tameka is aware she is not improving and prognosis overall is poor. Discussed hospice care once again - we have had this discussion a couple of times now....Patient is eligible for hospice care, however, family cannot provide her care at home. Discussed again that she can go to [facility] with hospice care, however, correction care means that family would have to private pay for room and board, or file Medicaid, which they are still not willing to do. I spoke with NADIRA Lopez and asked she follow up with family, and any other input she could provide. Updated and discussed with Dr. Singer. (5) Acute and chronic respiratory failure with hypoxia Current Visit: Yes Status: Acute (6) Mucus plugging of bronchi Current Visit: Yes Status: Acute (7) Pulmonary hypertension Current Visit: No Status: Chronic - Time Spent With Patient Total time spent is greater than 50% in coordination of care (as documented) at patient's floor/unit and/or counseling patient: - Subjective Interval history: Was called by primary team to see this pt again regarding goals of care - she has not made much improvement over the past week, still with significant oxygen demand at 7L high flow and poor appetite. Sleeps most of the time and still intermittently confused. There were discussions over this weekend regarding if the family was ready to rediscuss hospice care. - Constitutional Vitals: Abnormal lab results RBC 3.51 M/mcL (3.82-4.97) L 04/25/18 06:22 Hgb 10.4 g/dL (11.5-15.4) L 04/25/18 06:22 Hct 33.7 % (35.3-44.9) L 04/25/18 06:22 MCHC 30.9 g/dL (31.6-35.5) L 04/25/18 06:22 RDW 17.5 % (11.5-14.5) H 04/25/18 06:22 Plt Count 138 K/mcL (140-400) L 04/25/18 06:22 Monocytes # 1.4 K/mcL (0.0-1.3) H 04/25/18 06:22 Nucleated RBCs/100 WBC 0.2 /100 WBC (0) H 04/18/18 15:12 Platelet Estimate Slight Decrease (Normal) L 04/23/18 10:46 Immature Plt Fraction 12.0 % (1.1-6.1) H 04/19/18 06:57 Poikilocytosis 1+ (Not Present) A 04/17/18 06:30 Anisocytosis 1+ (Not Present) A 04/17/18 06:30 Stomatocytes 1+ (Not Present) A 04/17/18 06:30 PT 12.9 Seconds (9.4-12.1) H 04/11/18 17:11 ABG pO2 53 mmHg (85-104) L 04/13/18 11:16 ABG HCO3 30 mEq/L (21-27) H 04/13/18 11:16 ABG Total CO2 31 mEq/L (20-26) H 04/13/18 11:16 ABG O2 Saturation 88 % (95-98) L 04/13/18 11:16 ABG Base Excess 5 mEq/L (-2 to 3) H 04/13/18 11:16 VBG pH 7.49 pH Units (7.32-7.42) H 04/11/18 17:38 VBG pCO2 36 mmHg (41-51) L 04/11/18 17:38 VBG pO2 104 mmHg (25-50) H 04/11/18 17:38 Chloride 96 mEq/L (98-107) L 04/25/18 06:22 Carbon Dioxide 37 mEq/L (23-29) H 04/25/18 06:22 Est GFR ( Amer) 59 (> 60) L 04/25/18 06:22 Est GFR (Non-Af Amer) 48 (> 60) L 04/25/18 06:22 POC Glucose 116 mg/dL (70-99) H 04/17/18 12:17 B-Natriuretic Peptide 274 pg/mL (Less than 100) H 04/11/18 17:26 Albumin 3.3 g/dL (3.5-5.7) L 04/11/18 17:11 Albumin/Globulin Ratio 0.9 (1.1-2.2) L 04/11/18 17:11 Urine Protein 30 mg/dL (Neg-Trace) H 04/11/18 18:25 Urine Ketones 15 mg/dL (Negative) H 04/11/18 18:25 Stool Occult Blood Positive (Negative) A 04/19/18 15:05 General appearance: Present: no acute distress - Respiratory Respiratory exam: Present: decreased breath sounds Additional comments: faint crackles to bases - Cardiovascular Cardiovascular exam: Present: +S1, +S2 - GI/Abdominal GI/Abdominal exam: Present: normal bowel sounds, soft - Extremities Exam Extremities exam: Present: normal capillary refill, normal inspection - Neurological Exam Neurological exam: Present: alert, strengths equal and symetr throughout ( Oriented to name only, follow simple commands) - Skin Skin exam: Present: dry, pallor, warm Palliative Quality Palliative Quality: Screen for Code Status: Yes, Screen for Goals of Care: Yes, Screen for Pain: Yes, If Pain Regimen Started, Initiate Bowel Regimen: NA, Screen for Nausea/Vomitting: Yes - Labs CBC & Chem 7: 04/25/18 06:22 04/25/18 06:22 - ABG Interpretation ABG results: ABG ABG pH 7.44 pH Units (7.32-7.45) 04/13/18 11:16 ABG pCO2 44 mmHg (35-45) 04/13/18 11:16 ABG pO2 53 mmHg (85-104) L 04/13/18 11:16 ABG O2 Saturation 88 % (95-98) L 04/13/18 11:16 PT/INR, D-dimer PT 12.9 Seconds (9.4-12.1) H 04/11/18 17:11 Consult Discharge Plan - Plan Referrals: Maria Eugenia English MD [Primary Care Provider] -
[2018-04-27] MEDS: Albuterol 2.5 MG/3 ML NEBULIZER IH SCH ×2 (03:39→12:04)
[2018-04-27] MEDS: Acetylcysteine 10% 2 ML INHSOL IH SCH ×2 (03:39→12:03)
[2018-04-27] MEDS: Hydrocortisone Acetate 25 MG RECTAL SUPPOSITORY RC SCH (07:13)
[2018-04-27] MEDS: Aspirin 81 MG TAB.CHEW PO SCH (07:13)
[2018-04-27] MEDS: Furosemide 40 MG/4 ML VIAL IVP SCH (07:14)
[2018-04-27 10:48] VITALS: BP 100/63
--- NOTE | 2018-04-27 10:48 | Palliative Progress Note ---
Date of Encounter: 04/27/18 Time of Encounter: 09:30 - Assessment and plan (1) Dyspnea Current Visit: No Status: Acute Qualifiers: Dyspnea type: shortness of breath Qualified Code(s): R06.02 - Shortness of breath; R06.00 - Dyspnea, unspecified; R06.01 - Orthopnea (2) Anxiety and depression Current Visit: Yes Status: Chronic Assessment and plan: Continues with Celexa and Xanax PRN. Utilized x1 last 24 hours. (3) Constipation Current Visit: Yes Status: Acute Assessment and plan: No BM from Miralax and dose of Lactulose yesterday. Will change Colace to Senokot and schedule. She does not like liquids - will give one time Dulcolax today as well. Qualifiers: Constipation type: unspecified constipation type Qualified Code(s): K59.00 - Constipation, unspecified (4) Goals of care, counseling/discussion Current Visit: No Status: Acute Assessment and plan: Patient family not available. I did speak with son, MORGAN Damon, yesterday late afternoon. He had further questions regarding hospice care at home, and stating they were looking into privately hiring assistance. Provided his with contact information for home helpers of [facility]. Notified NADIRA Lopez - 3A. He will need follow up today. Discharge plan remains unclear as limited amount home help, and [facility]CF with hospice would be private pay. (5) Acute and chronic respiratory failure with hypoxia Current Visit: Yes Status: Acute (6) Mucus plugging of bronchi Current Visit: Yes Status: Acute (7) Pulmonary hypertension Current Visit: No Status: Chronic - Time Spent With Patient Total time spent is greater than 50% in coordination of care (as documented) at patient's floor/unit and/or counseling patient: 25 - 35 minutes - Subjective Interval history: Patient awake and alert - denies pain or discomfort at this time. Said she was upset I woke her up. No family at bedside. Harsh cough - sounds as if she has very thick secretions again. Still no BM documented since 04/17. - Constitutional Vitals: Abnormal lab results RBC 3.51 M/mcL (3.82-4.97) L 04/25/18 06:22 Hgb 10.4 g/dL (11.5-15.4) L 04/25/18 06:22 Hct 33.7 % (35.3-44.9) L 04/25/18 06:22 MCHC 30.9 g/dL (31.6-35.5) L 04/25/18 06:22 RDW 17.5 % (11.5-14.5) H 04/25/18 06:22 Plt Count 138 K/mcL (140-400) L 04/25/18 06:22 Monocytes # 1.4 K/mcL (0.0-1.3) H 04/25/18 06:22 Nucleated RBCs/100 WBC 0.2 /100 WBC (0) H 04/18/18 15:12 Platelet Estimate Slight Decrease (Normal) L 04/23/18 10:46 Immature Plt Fraction 12.0 % (1.1-6.1) H 04/19/18 06:57 Poikilocytosis 1+ (Not Present) A 04/17/18 06:30 Anisocytosis 1+ (Not Present) A 04/17/18 06:30 Stomatocytes 1+ (Not Present) A 04/17/18 06:30 PT 12.9 Seconds (9.4-12.1) H 04/11/18 17:11 ABG pO2 53 mmHg (85-104) L 04/13/18 11:16 ABG HCO3 30 mEq/L (21-27) H 04/13/18 11:16 ABG Total CO2 31 mEq/L (20-26) H 04/13/18 11:16 ABG O2 Saturation 88 % (95-98) L 04/13/18 11:16 ABG Base Excess 5 mEq/L (-2 to 3) H 04/13/18 11:16 VBG pH 7.49 pH Units (7.32-7.42) H 04/11/18 17:38 VBG pCO2 36 mmHg (41-51) L 04/11/18 17:38 VBG pO2 104 mmHg (25-50) H 04/11/18 17:38 Chloride 96 mEq/L (98-107) L 04/25/18 06:22 Carbon Dioxide 37 mEq/L (23-29) H 04/25/18 06:22 Est GFR ( Amer) 59 (> 60) L 04/25/18 06:22 Est GFR (Non-Af Amer) 48 (> 60) L 04/25/18 06:22 POC Glucose 116 mg/dL (70-99) H 04/17/18 12:17 B-Natriuretic Peptide 274 pg/mL (Less than 100) H 04/11/18 17:26 Albumin 3.3 g/dL (3.5-5.7) L 04/11/18 17:11 Albumin/Globulin Ratio 0.9 (1.1-2.2) L 04/11/18 17:11 Urine Protein 30 mg/dL (Neg-Trace) H 04/11/18 18:25 Urine Ketones 15 mg/dL (Negative) H 04/11/18 18:25 Stool Occult Blood Positive (Negative) A 04/19/18 15:05 General appearance: Present: no acute distress - Respiratory Respiratory exam: Present: decreased breath sounds Additional comments: Scattered rhonchi throughout anterior chest. - Cardiovascular Cardiovascular exam: Present: +S1, +S2 - GI/Abdominal GI/Abdominal exam: Present: diminished bowel sounds, soft - Extremities Exam Extremities exam: Present: normal capillary refill, normal inspection - Neurological Exam Neurological exam: Present: alert, strengths equal and symetr throughout Additional comments: Oriented to name and place only. - Skin Skin exam: Present: dry, pallor, warm Palliative Quality Palliative Quality: Screen for Code Status: Yes, Screen for Goals of Care: Yes, Screen for Pain: Yes, If Pain Regimen Started, Initiate Bowel Regimen: NA, Screen for Nausea/Vomitting: Yes - Labs CBC & Chem 7: 04/25/18 06:22 04/25/18 06:22 - ABG Interpretation ABG results: ABG ABG pH 7.44 pH Units (7.32-7.45) 04/13/18 11:16 ABG pCO2 44 mmHg (35-45) 04/13/18 11:16 ABG pO2 53 mmHg (85-104) L 04/13/18 11:16 ABG O2 Saturation 88 % (95-98) L 04/13/18 11:16 PT/INR, D-dimer PT 12.9 Seconds (9.4-12.1) H 04/11/18 17:11 Consult Discharge Plan - Plan Referrals: Maria Eugenia English MD [Primary Care Provider] -
--- NOTE | 2018-04-27 13:11 | Internal Med History&Physical ---
Date of Encounter: 04/27/18 Time of Encounter: 09:00 Internal Medicine - H&P: HPI History of present illness: Ms. King is a 87 year old female Past Med Surg Social Fam HX - Past Medical History Medical history: aortic aneurysm, arthritis, CHF, COPD, CVA, hypertension, other Additional medical history: Left ankle fracture, left hip fracture, left wrist fracture Psychiatric history: anxiety, depression - Past Surgical History Surgical History: carotid endarterectomy, cataract Additional surgical history: broken ankle - Social History Smoking Status: Former smoker Smokeless Tobacco Status: No Alcohol use: none Drug use: none - Family History Mother Adopted: No Living Status: Hx Family Cardiac Disorders: Yes (mother) Hx Family Respiratory Disorders: No Hx Family Cancer: No Hx Family GI Disorders: No Hx Family Endocrine Disorder: No Hx Family Neuromuscular Disorders: No Hx Family Neurologic Disorders: No Hx Family HEENT Disorders: No Hx Family Autoimmune Disorders: No Internal Medicine - H&P: Meds Ergocalciferol (VITAMIN D2) [Vitamin D] 400 unit PO BID 02/19/18 [History] Vit A/C/E AC/Znox/Cupric Oxide [Eye Vitamin-Minerals Tablet] 1 tab PO DAILY [History] Aspirin 325 mg PO BID #60 tablet 02/24/18 [Rx] Albuterol Sulfate [Proair Hfa] 2 puff IH Q4-6H PRN 03/01/18 [History] Citalopram [CeleXA] 20 mg PO DAILY 03/01/18 [History] Metoprolol [Lopressor] 12.5 mg PO BID 03/01/18 [History] Bethanechol Chloride [Urecholine] 10 mg PO TID 04/13/18 [History] Budesonide/Formoterol 80/4.5 [Symbicort 80/4.5] 2 puff PO BID 04/13/18 [History ] Ferrous Sulfate [Iron] 325 mg PO DAILY 04/13/18 [History] Ipratropium/Albuterol Neb [Duoneb] 3 ml IH Q6HR 04/13/18 [History] Oxycodone HCl [Oxaydo] 5 mg PO Q6H PRN 04/13/18 [History] Tamsulosin HCl [Flomax] 0.4 mg PO DAILY 04/13/18 [History] amLODIPine [Norvasc] 5 mg PO DAILY 04/13/18 [History] diazePAM [Valium] 5 mg PO DAILY PRN 04/13/18 [History] 3 Allergy/AdvReac Type Severity Reaction Status Date / Time No Known Allergies Allergy Verified 02/19/18 15:50 All Systems PM: A 10-system review of systems was performed and is negative for pertinent findings except as documented above in the HPI. - Constitutional Vitals: Temp Pulse Resp BP Pulse Ox 97.6 F 70 18 100/63 92 04/27/18 10:47 04/27/18 10:47 04/27/18 10:47 04/27/18 10:47 04/27/18 10:47 Internal Med - H&P Results - Labs CBC & Chem 7: 04/25/18 06:22 04/25/18 06:22 - Impressions ITS Impressions Chest X-Ray 04/15/18 08:42 IMPRESSION: 1. Worsening left upper lobe airspace disease either due to atelectasis or developing pneumonia. D/ / Tyler Saleem MD / Tyler Saleem MD Interpreting Provider: Tyler Saleem MD Chest X-Ray 04/18/18 08:00 IMPRESSION: 1. Moderate size right pleural effusion, increased from prior study. Small left pleural effusion. 2. Interval improvement in left lung opacification. 3. Cardiomegaly and pulmonary edema. D/ / Blade Ceja MD / Blade Ceja MD Interpreting Provider: Blade Ceja MD Chest X-Ray 04/22/18 17:21 IMPRESSION: 1. Redemonstration of mild pulmonary edema and moderate right-sided pleural effusion with associated atelectasis which overall appears similar to previous exam. 2. Mild left basilar atelectasis. D/ / Leonard Yepez MD / Leonard Yepez MD Interpreting Provider: Leonard Yepez MD - Assessment and plan (1) Anemia Current Visit: Yes Status: Acute Qualifiers: Anemia type: other cause Other causes of anemia: acute posthemorrhagic Qualified Code(s): D62 - Acute posthemorrhagic anemia (2) Acute and chronic respiratory failure Current Visit: No Status: Acute Qualifiers: Respiratory failure complication: hypoxia and hypercapnia Qualified Code(s) : J96.21 - Acute and chronic respiratory failure with hypoxia; J96.22 - Acute and chronic respiratory failure with hypercapnia - Time Spent With Patient Total time spent is greater than 50% in coordination of care (as documented) at patient's floor/unit and/or counseling patient:
--- NOTE | 2018-04-27 13:13 | Physician Discharge Referral ---
ExtendedCare Referral Info Transfer To: [facility] Provider in Charge after Transfer: PCP - Diagnosis (1) Anemia Priority: Secondary Status: Acute (2) Acute and chronic respiratory failure Priority: Primary Status: Acute (3) CKD (chronic kidney disease) stage 3, GFR 30-59 ml/min Priority: Secondary Status: Acute (4) Constipation Priority: Secondary Status: Acute (5) Decubitus ulcer of sacral region, stage 1 Priority: Secondary Status: Acute (6) Fall Priority: Secondary Status: Acute (7) Mucus plugging of bronchi Priority: Secondary Status: Acute (8) Pulmonary hypertension Priority: Secondary Status: Acute (9) Weakness Priority: Secondary Status: Acute (10) CHF (congestive heart failure) Priority: Secondary Status: Chronic (11) COPD (chronic obstructive pulmonary disease) Priority: Secondary Status: Chronic (12) Chronic respiratory failure with hypoxia Priority: Secondary Status: Chronic (13) Hypertension with renal disease Priority: Secondary Status: Chronic (14) SINDHU (acute kidney injury) Priority: Secondary Status: Acute (15) Pneumonia Priority: Secondary Status: Acute Prognosis: Poor Aware of Diagnosis: Patient, Family Aware of Prognosis: Patient, Family - Transfer Medications Home Medications: Ergocalciferol (VITAMIN D2) [Vitamin D] 400 unit PO BID 02/19/18 [History] Vit A/C/E AC/Znox/Cupric Oxide [Eye Vitamin-Minerals Tablet] 1 tab PO DAILY [History] Aspirin 325 mg PO BID #60 tablet 02/24/18 [Rx] Albuterol Sulfate [Proair Hfa] 2 puff IH Q4-6H PRN 03/01/18 [History] Citalopram [CeleXA] 20 mg PO DAILY 03/01/18 [History] Metoprolol [Lopressor] 12.5 mg PO BID 03/01/18 [History] Bethanechol Chloride [Urecholine] 10 mg PO TID 04/13/18 [History] Budesonide/Formoterol 80/4.5 [Symbicort 80/4.5] 2 puff PO BID 04/13/18 [History ] Ferrous Sulfate [Iron] 325 mg PO DAILY 04/13/18 [History] Ipratropium/Albuterol Neb [Duoneb] 3 ml IH Q6HR 04/13/18 [History] Oxycodone HCl [Oxaydo] 5 mg PO Q6H PRN 04/13/18 [History] Tamsulosin HCl [Flomax] 0.4 mg PO DAILY 04/13/18 [History] amLODIPine [Norvasc] 5 mg PO DAILY 04/13/18 [History] diazePAM [Valium] 5 mg PO DAILY PRN 04/13/18 [History] Allergies/Adverse Reactions: 3 Allergy/AdvReac Type Severity Reaction Status Date / Time No Known Allergies Allergy Verified 02/19/18 15:50 - Respiratory Orders Smoking Cessation: Smoking cessation has been advised. For more information, call the [place] Tobacco Quit Line at 0-341-GRYLNOW. CERTIFICATION: I certify that the transfer of the above named patient to an Extended Care Facility is necessary for the continuing treatment of the diagnosis listed. The above information is true and accurate reflection of patient's current condition. Confidential - Redisclosure prohibited without a patient's written consent.
--- NOTE | 2018-04-27 13:18 | Discharge Summary ---
<El Land - Last Filed: 04/27/18 13:15> - NOTES TO OUTPATIENT PROVIDER Notes to Outpatient Provider: Patient to go to [facility]. Date of Encounter: 04/27/18 Time of Encounter: 09:00 - Discharge Diagnosis (1) Acute and chronic respiratory failure Priority: Primary Status: Acute Qualifiers: Respiratory failure complication: hypoxia and hypercapnia Qualified Code(s) : J96.21 - Acute and chronic respiratory failure with hypoxia; J96.22 - Acute and chronic respiratory failure with hypercapnia (2) Anemia Priority: Secondary Status: Acute Qualifiers: Anemia type: other cause Other causes of anemia: acute posthemorrhagic Qualified Code(s): D62 - Acute posthemorrhagic anemia (3) CKD (chronic kidney disease) stage 3, GFR 30-59 ml/min Priority: Secondary Status: Acute (4) Constipation Priority: Secondary Status: Acute Qualifiers: Constipation type: unspecified constipation type Qualified Code(s): K59.00 - Constipation, unspecified (5) Decubitus ulcer of sacral region, stage 1 Priority: Secondary Status: Acute (6) Fall Priority: Secondary Status: Acute Qualifiers: Encounter type: subsequent encounter Qualified Code(s): W19.XXXD - Unspecified fall, subsequent encounter (7) Mucus plugging of bronchi Priority: Secondary Status: Acute (8) Pulmonary hypertension Priority: Secondary Status: Acute (9) Weakness Priority: Secondary Status: Acute (10) CHF (congestive heart failure) Priority: Secondary Status: Chronic Qualifiers: Heart failure type: unspecified Heart failure chronicity: unspecified Qualified Code(s): I50.9 - Heart failure, unspecified (11) COPD (chronic obstructive pulmonary disease) Priority: Secondary Status: Chronic Qualifiers: COPD type: emphysema Emphysema type: panlobular Qualified Code(s): J43.1 - Panlobular emphysema (12) Chronic respiratory failure with hypoxia Priority: Secondary Status: Chronic (13) Hypertension with renal disease Priority: Secondary Status: Chronic (14) SINDHU (acute kidney injury) Priority: Secondary Status: Acute (15) Pneumonia Priority: Secondary Status: Acute Qualifiers: Pneumonia type: due to unspecified organism Laterality: bilateral Lung location: unspecified part of lung Qualified Code(s): J18.9 - Pneumonia, unspecified organism Hospital course: Ms. Sheets is a 87 year old female PMHx COPD on chronic home oxygen, CHF, Stage 3 CKD, chronic smoker presented from [facility] for poor mentaiton and multiple falls. Head CT with small right posterior scalp hematoma and no evidence of acute intracranial hemorrhage. Chronic small vessel ischemia. Imaging demonstrated mucus plugs and pneumonia and patient finished 9 day course of antibiotic levaquin. Chest CT with 8mm right upper lobe nodule that will require further outpatient work up. She had complaints of bloody urine and +FOBT and became anemic requiring 2 units RBCs and iron infusion. Anemia likely secondary to chronic disease. Hemoglobin has been stable >72 hours without transfusion. Respiratory failure improved with 8L oxymask and lasix. Nephrology was consulted and states patients CKD is stable and does not have acute need of hemodialysis. PT/OT consulted for worsening weakness. On 04/15/18, palliative was consulted but patient requested for surgical consult for possible removal of external hemorrhage that they believe was making her constation worse. Surgery was consulted and recommended supportive care for now. Despite several palliative meetings, patient and family have decied not to take home hospice. Patient's son, Nelson, is POA and state that they cannot pay for ECF with hospice. They will be looking into privately hiring assistance instead. For now, transfer patient back to [place], follow up with cardiology, PCP, and pulmonology for 8 mm Right upper lobe nodule. She is ok to continue with home medications. Today, patient is VSS on 8L NC. Her baseline mentation is stable. She also confirms that she is ok to go home. Denies dizziness, lighthedeadedness, CP, SOB , abdominal pain. Time spent discussing smoking cessation with patient: more than 10 minutes - Time Spent with Patient Total time spent providing and/or coordinating discharge services: Greater than 30 minutes - Discharge Medications Home Medications: Ergocalciferol (VITAMIN D2) [Vitamin D] 400 unit PO BID 02/19/18 [History] Vit A/C/E AC/Znox/Cupric Oxide [Eye Vitamin-Minerals Tablet] 1 tab PO DAILY [History] Aspirin 325 mg PO BID #60 tablet 02/24/18 [Rx] Albuterol Sulfate [Proair Hfa] 2 puff IH Q4-6H PRN 03/01/18 [History] Citalopram [CeleXA] 20 mg PO DAILY 03/01/18 [History] Metoprolol [Lopressor] 12.5 mg PO BID 03/01/18 [History] Bethanechol Chloride [Urecholine] 10 mg PO TID 04/13/18 [History] Budesonide/Formoterol 80/4.5 [Symbicort 80/4.5] 2 puff PO BID 04/13/18 [History ] Ferrous Sulfate [Iron] 325 mg PO DAILY 04/13/18 [History] Ipratropium/Albuterol Neb [Duoneb] 3 ml IH Q6HR 04/13/18 [History] Oxycodone HCl [Oxaydo] 5 mg PO Q6H PRN 04/13/18 [History] Tamsulosin HCl [Flomax] 0.4 mg PO DAILY 04/13/18 [History] amLODIPine [Norvasc] 5 mg PO DAILY 04/13/18 [History] diazePAM [Valium] 5 mg PO DAILY PRN 04/13/18 [History] Allergies/Adverse Reactions: 3 Allergy/AdvReac Type Severity Reaction Status Date / Time No Known Allergies Allergy Verified 02/19/18 15:50 Date of admission: 04/14/18 23:04 Primary care physician: Maria Eugenia English Consults: 04/15/18 11:40 Consult to Palliative Care [CONS] Routine Comment: Consulting Provider: L[facility] Naye Reason for Consult: goals of care Call Completed: Yes 04/19/18 13:50 Consult to Surgery [CONS] Routine Consulting Provider: El Land Reason for Consult: Requesting Hemorrhoid surgery prior to considering hospice. Call Completed: Yes 04/26/18 09:40 Consult to Palliative Care [CONS] Routine Comment: Consulting Provider: Palliative [facility] Naye Reason for Consult: Hospice Call Completed: Yes Discharging clinician: El Land Anticipated date of discharge: 04/27/18 - Constitutional Vitals: Temp Pulse Resp BP Pulse Ox 97.6 F 70 18 100/63 92 04/27/18 10:47 04/27/18 10:47 04/27/18 10:47 04/27/18 10:47 04/27/18 10:47 Exam: General: Chronically ill appearing, anxious at times Skin: Pale, no rash, no lesions. H: Normocephalic. Cardiovascular: Normal S1 & S2. No JVD. Pulse regular. Systolic murmur heard. Lungs: Coarse bilateral lung bases one third up - improvement today Abdomen: Soft, non-tender, no rigidity. Normal bowel sounds. Extremities: No deformity, no edema or tenderness Neurological: Moves all extremities. Pulses: Carotid and radial pulses normal +2. Psych: Alert and oriented to person only. - Patient Status Disposition: Transfer SNF Condition: Serious Functional capacity at discharge: bed bound Overall status at discharge: patient is not back to baseline - Discharge Instructions Follow Up With: Maria Eugenia English MD [Primary Care Provider] - Additional Instructions: Follow-up appointments: If there is not an appointment listed below, please call your physician and schedule a follow-up appointment. If you have congestive heart failure and your symptoms return, make an appointment with your physician. Medication List: Carry an up to date list of medications you are taking at all time. We have given you an updated medication list including any new medications that you have been prescribed. Please provide that list to your primary provider Symptoms: If your condition changes or you experience any of the following symptoms, notify your physician immediately: Unusual or worsening pain, fever, persistent nausea and vomiting, bleeding, increase in swelling (especially in your legs), sudden weight gain, extreme dizziness, chest pain, increased drainage or redness from a wound or incision. Go to the emergency department if you experience a problem with breathing. Weights: If you have a history of swelling or shortness of breath, weigh yourself daily and notify your physician if you have a weight gain of two or more pounds in one day or 5 or more pounds in a week. If you experience any of the warning signs for stroke: Sudden numbness or weakness of the face, arm or leg; especially on one side of the body, sudden confusion, trouble speaking or understanding, sudden trouble seeing in one or both eyes, sudden trouble walking, dizziness, loss of balance or coordination, sudden sever headache with no cause; Call 911 or go to the emergency room. Stroke is a medical emergency. Some risk factors for stroke: Age, cigarette smoking, diabetes, excessive alcohol consumption, family history , high blood pressure, overweight, physical inactivity, prior stroke, heart attack, diagnosis of carotid artery stenosis or other artery disease. If you smoke, STOP: Smoking or tobacco use significantly increases your risk of heart and lung disease. Your chance of disease greatly increases if you continue to smoke. For more information, call the [place] tobacco quit line for smoking cessation 3-- QUIT-NOW ( ) - Diet and Activity Activity: as per physical therapy, increase activity as tolerated, wear oxygen at all times <Brennan Frederick - Last Filed: 04/27/18 17:46> Date of Encounter: 04/27/18 - Discharge Diagnosis (1) COPD (chronic obstructive pulmonary disease) Status: Chronic Qualifiers: COPD type: emphysema Emphysema type: panlobular Qualified Code(s): J43.1 - Panlobular emphysema (2) Anxiety and depression Status: Chronic (3) Pneumonia Status: Suspected Qualifiers: Pneumonia type: due to methicillin-sensitive Staphylococcus aureus (MSSA) Laterality: right Lung location: lower lobe of lung Qualified Code(s): J15.211 - Pneumonia due to Methicillin susceptible Staphylococcus aureus (4) Diastolic CHF Status: Chronic Qualifiers: Heart failure chronicity: acute on chronic Qualified Code(s): I50.33 - Acute on chronic diastolic (congestive) heart failure (5) Decubitus ulcer of sacral region, stage 1 Status: Acute (6) Chronic respiratory failure with hypoxia Status: Chronic (7) Hypertension with renal disease Status: Chronic (8) Acute and chronic respiratory failure with hypoxia Status: Acute (9) Mucus plugging of bronchi Status: Acute (10) Anemia Status: Chronic Qualifiers: Anemia type: other cause Other causes of anemia: chronic disease, other Qualified Code(s): D63.8 - Anemia in other chronic diseases classified elsewhere Hospital course: Ms. King is a 87 year old female - Time Spent with Patient Total time spent providing and/or coordinating discharge services: Date of admission: 04/14/18 23:04 Primary care physician: Maria Eugenia English Consults: 04/15/18 11:40 Consult to Palliative Care [CONS] Routine Comment: Consulting Provider: Palliative Care Naye Reason for Consult: goals of care Call Completed: Yes 04/19/18 13:50 Consult to Surgery [CONS] Routine Consulting Provider: El Land Reason for Consult: Requesting Hemorrhoid surgery prior to considering hospice. Call Completed: Yes 04/26/18 09:40 Consult to Palliative Care [CONS] Routine Comment: Consulting Provider: Palliative Care Naye Reason for Consult: Hospice Call Completed: Yes - Constitutional Vitals: Temp Pulse Resp BP Pulse Ox 97.6 F 70 18 100/63 92 04/27/18 10:47 04/27/18 10:47 04/27/18 10:47 04/27/18 10:47 04/27/18 10:47 - Attending Attestation I examined this patient and my medical decision-making was reviewed with the Resident Physician Dr. Land. I agree with the documented findings, disposition and treatment plan as described except to the extent set forth below. Ms. King is a 87 year old female with known PMH of chronic diastolic CHF, COPD , Pulm HTN, chronic hypoxic resp failure presented from [facility] via EMS for shortness of breath. She did have pneumonia and worsening hypoxia due to mucus plugging. She did go for bronchoscopy. However her oxygen saturation has not improved much. She is till on 7 lit O2. Overall seems to be poor prognosis. Family do not wanted to do any more aggressive care and requested for DNR/DNI and comfort care. Also wanted to take her back to ECF for further care. I did talk to the pt's son at bed side and exaplianed to him about current care. Pt was sent back to ECF, however on her way to ECF, she developed worsening KIRAN so she was brought back to ER by EMS. I did go and evaluated her in the ER along with Dr. Land. Pt seems to be resting comfortably on 7 lit O2, at her baseline. Talked to pt's daughter at bed side, they would like to take her back to ECF and wanted her to be comfortable. Will call ECF and update them about it. Discussed these with ER attending Dr. Mcclelland too.
[2018-04-27] MEDS ORDERED: Sennosides/Docusate Sodium TABLET PO SCH (21:00)
== END 2018-04-27 14:41 | DRG 177 ==
LOC: EMEROOARM 16:57 → 3ANU 16:57 → SUATTDRO 19:57 → 3ANU 20:43 → SUATTDRO 04-14 23:04
PROVIDERS: ADMIT Internal Medicine; ATTEND Family Medicine